=== PATIENT | female | born 1955 | race Hispanic/Latino ===

== ENCOUNTER 2017-12-03 22:26 | Emergency (ER) | payer OTHER ==
[2017-12-04 00:16] LABS: Urine Blood 3+ (NEG); Urine Glucose 2+ (NEG); Urine Protein TRACE (NEG); Urine pH 7.5 (5.0-7.0)
[2017-12-04 00:55] LABS: Urine Appearance CLEAR; Urine Bilirubin NEGATIVE (NEG); Urine Blood 3+ (NEG); Urine Glucose 3+ (NEG); Urine Protein 1+ (NEG); Urine Specific Gravity >=1.030 (1.005-1.030)
[2017-12-04 01:01] LABS: Urine Color RED
[2017-12-04 01:26] LABS: Urine Culture Reflex Order NOT NEEDED
[2017-12-04 01:27] LABS: Urine Bacteria 20-50 /HPF (<20); Urine RBC TNTC /HPF (NONE SEEN)
--- NOTE | 2017-12-04 01:48 | ER ---
Nurse's Notes [facility] Name: Sindi Corey Age: 62 yrs Sex: Female : 1955 Arrival Date: 12/03/2017 Time: 22:31 Bed 6 Private MD: Alex Sweeney Diagnosis: Urinary tract infection, site not specified Presentation: 12/03 22:44 Presenting complaint: Patient states: Patient reports bloody urine that started last ea week. Pt reports pain with urination and frequency. Transition of care: patient was not received from another setting of care. Onset of symptoms was December 03, 2017. Risk Assessment: Do you want to hurt yourself or someone else? Patient reports no desire to harm self or others. Initial Sepsis Screen: Does the patient meet any 2 criteria? No. Patient's initial sepsis screen is negative. Does the patient have a suspected source of infection? No. Patient's initial sepsis screen is negative. Care prior to arrival: None. 22:44 Method Of Arrival: Ambulatory ea 22:44 Acuity: ALONDRA 4 ea Triage Assessment: 22:48 General: Appears in no apparent distress. Behavior is calm, cooperative, appropriate ea for age. Pain: Complains of pain in suprapubic area. Neuro: Level of Consciousness is awake, alert, obeys commands, Oriented to person, place, time, situation. Cardiovascular: Patient's skin is warm and dry. Respiratory: Airway is patent Respiratory effort is even, unlabored, Respiratory pattern is regular, symmetrical. GI: Abdomen is non-distended, Bowel sounds present X 4 quads. : Reports burning with urination, urgency, since started a week ago urinary frequency. Derm: Skin is pink, warm \T\ dry. Musculoskeletal: No signs and/or symptoms reported regarding the musculoskeletal system. Circulation, motion, and sensation intact. Historical: - Allergies: 22:47 Hydrocodone-Acetaminophen; ea - Home Meds: 22:47 Humalog Pen Sub-Q [Active]; lisinopril-hydrochlorothiazide 20-12.5 mg Oral tab 1 tab ea once daily [Active]; metoprolol tartrate 25 mg Oral tab 1 tab once daily [Active]; omeprazole 40 mg Oral cpDR 1 cap once daily [Active]; Toujeo SoloStar 300 unit/mL (1.5 mL) subcutaneous inpn [Active]; - PMHx: 22:47 Cirrhosis; Diabetes - IDDM; Hypertension; ea - PSHx: 22:47 Cholecystectomy; ea - Immunization history:: Adult Immunizations up to date. - Social history:: Smoking status: Patient/guardian denies using tobacco. - Ebola Screening: : No symptoms or risks identified at this time. Screenin:51 Abuse screen: Denies threats or abuse. Nutritional screening: No deficits noted. ea Tuberculosis screening: No symptoms or risk factors identified. Fall Risk None identified. Assessment: 22:40 Reassessment: See triage assessment. ea 23:50 Reassessment: Patient and/or family updated on plan of care and expected duration. Pain ea level reassessed. Patient is alert, oriented x 3, equal unlabored respirations, skin warm/dry/pink. 12/04 00:40 Reassessment: Patient appears in no apparent distress at this time. Patient and/or tl2 family updated on plan of care and expected duration. Pain level reassessed. Patient is alert, oriented x 3, equal unlabored respirations, skin warm/dry/pink. Awaiting dispo per MD. 01:24 Reassessment: Awaiting urine micro results. tl2 02:00 Reassessment: Patient appears in no apparent distress at this time. Patient and/or tl2 family updated on plan of care and expected duration. Pain level reassessed. Patient is alert, oriented x 3, equal unlabored respirations, skin warm/dry/pink. Pt and family verbalized understanding of discharge instructions, need for follow up and prescription usage. Vital Signs: 12/03 22:47 BP 159 / 70; Pulse 83; Resp 16; Temp 98(O); Pulse Ox 97% on R/A; Weight 103.87 kg; ea Height 5 ft. 4 in. (162.56 cm); Pain /10; 23:48 BP 155 / 69; Pulse 76; Resp 18; Pulse Ox 97% on R/A; tl2 12/04 00:40 BP 133 / 69; Pulse 81; Resp 18; Pulse Ox 99% on R/A; tl2 01:23 BP 109 / 73; Pulse 76; Resp 18; Pulse Ox 97% on R/A; tl2 12/03 22:47 Body Mass Index 39.31 (103.87 kg, 162.56 cm) ea ED Course: 12/03 22:31 Patient arrived in ED. am2 22:31 Alex Sweeney MD is Private Physician. am2 22:35 Marion Quiles, RN is Primary Nurse. ea 22:45 Triage completed. ea 22:50 Arm band placed on right wrist. Patient placed in an exam room, on a stretcher, on ea pulse oximetry. 22:52 Patient has correct armband on for positive identification. Bed in low position. Call ea light in reach. Side rails up X 1. 22:59 William Figueroa MD is Attending Physician. tw4 12/04 02:00 No provider procedures requiring assistance completed. Patient did not have IV access tl2 during this emergency room visit. Administered Medications: 02:03 Drug: Macrobid 100 mg Route: PO; tl2 02:03 Follow up: Response: No adverse reaction; Medication administered at discharge. tl2 Outcome: 01:47 Discharge ordered by . tw4 02:00 Discharged to home ambulatory, with family. tl2 02:00 Condition: stable 02:00 Discharge instructions given to patient, family, Instructed on discharge instructions, follow up and referral plans. medication usage, Demonstrated understanding of instructions, follow-up care, medications, Prescriptions given X 2. 02:03 Patient left the ED. tl2 Addendum: 12/07/2017 07:48 Addendum: Culture Results: Positive urine culture. No further action required. Bacteria a a5 sensitive to prescribed antibiotic. Signatures: Clarissa Foster RN RN aa5 Temitope Kwan RN RN tl2 Jazzy Xiong am2 Marion Quiles, William Trotter RN, ea, MD MD tw4
--- NOTE | 2017-12-04 01:48 | EDPHYS ---
Physician Documentation [facility] Name: Sindi Corey Age: 62 yrs Sex: Female : 1955 Arrival Date: 12/03/2017 Time: 22:31 Bed 6 Private MD: Alex Sweeney ED Physician William Figueroa HPI: 12/04 03:25 This 62 yrs old Female presents to ER via Ambulatory with complaints of tw4 Vaginal Bleeding. 03:25 The patient presents with urinary symptoms, hematuria. Onset: The symptoms/episode tw4 began/occurred yesterday. Modifying factors: The symptoms are alleviated by nothing, the symptoms are aggravated by nothing. Associated signs and symptoms: The patient has no apparent associated signs or symptoms. Severity of symptoms: At their worst the symptoms were moderate, in the emergency department the symptoms are unchanged. The patient has not recently seen a physician. Historical: - Allergies: 12/03 22:47 Hydrocodone-Acetaminophen; ea - Home Meds: 22:47 Humalog Pen Sub-Q [Active]; lisinopril-hydrochlorothiazide 20-12.5 mg Oral tab 1 tab ea once daily [Active]; metoprolol tartrate 25 mg Oral tab 1 tab once daily [Active]; omeprazole 40 mg Oral cpDR 1 cap once daily [Active]; Toujeo SoloStar 300 unit/mL (1.5 mL) subcutaneous inpn [Active]; - PMHx: 22:47 Cirrhosis; Diabetes - IDDM; Hypertension; ea - PSHx: 22:47 Cholecystectomy; ea - Immunization history:: Adult Immunizations up to date. - Social history:: Smoking status: Patient/guardian denies using tobacco. - Ebola Screening: : No symptoms or risks identified at this time. ROS: 12/04 03:25 Positive for burning with urination. tw4 Constitutional: Negative for fever, chills, and weight loss, Eyes: Negative for injury, pain, redness, and discharge, Cardiovascular: Negative for chest pain, palpitations, and edema, Respiratory: Negative for shortness of breath, cough, wheezing, and pleuritic chest pain, Abdomen/GI: Negative for abdominal pain, nausea, vomiting, diarrhea, and constipation, MS/Extremity: Negative for injury and deformity, Skin: Negative for injury, rash, and discoloration. Exam: 03:25 Constitutional: This is a well developed, well nourished patient who is awake, alert, tw4 and in no acute distress. Head/Face: Normocephalic, atraumatic. Chest/axilla: Normal chest wall appearance and motion. Nontender with no deformity. No lesions are appreciated. Cardiovascular: Regular rate and rhythm with a normal S1 and S2. No gallops, murmurs, or rubs. Normal PMI, no JVD. No pulse deficits. Respiratory: Lungs have equal breath sounds bilaterally, clear to auscultation and percussion. No rales, rhonchi or wheezes noted. No increased work of breathing, no retractions or nasal flaring. Abdomen/GI: Soft, non-tender, with normal bowel sounds. No distension or tympany. No guarding or rebound. No evidence of tenderness throughout. Back: No spinal tenderness. No costovertebral tenderness. Full range of motion. MS/ Extremity: Pulses equal, no cyanosis. Neurovascular intact. Full, normal range of motion. Neuro: Awake and alert, GCS 15, oriented to person, place, time, and situation. Cranial nerves II-XII grossly intact. Motor strength 5/5 in all extremities. Sensory grossly intact. Cerebellar exam normal. Normal gait. Vital Signs: 12/03 22:47 BP 159 / 70; Pulse 83; Resp 16; Temp 98(O); Pulse Ox 97% on R/A; Weight 103.87 kg; ea Height 5 ft. 4 in. (162.56 cm); Pain 5/10; 23:48 BP 155 / 69; Pulse 76; Resp 18; Pulse Ox 97% on R/A; tl2 12/04 00:40 BP 133 / 69; Pulse 81; Resp 18; Pulse Ox 99% on R/A; tl2 01:23 BP 109 / 73; Pulse 76; Resp 18; Pulse Ox 97% on R/A; tl2 12/03 22:47 Body Mass Index 39.31 (103.87 kg, 162.56 cm) ea MDM: 12/03 23:00 Patient medically screened. tw4 12/04 03:25 Data reviewed: vital signs, nurses notes. Counseling: I had a detailed discussion with tw4 the patient and/or guardian regarding: the historical points, exam findings, and any diagnostic results supporting the discharge/admit diagnosis. Special discussion: I discussed with the patient/guardian in detail that at this point there is no indication for admission to the hospital. It is understood, however, that if the symptoms persist or worsen the patient needs to return immediately for re-evaluation. 12/03 23:25 Order name: Urine Dipstick--Ancillary (enter results); Complete Time: 00:41 ms 12/04 00:42 Order name: Urine Culture tl2 12/04 00:52 Order name: Urinalysis W/Microscopic; Complete Time: 01:45 EDMS Administered Medications: 02:03 Drug: Macrobid 100 mg Route: PO; tl2 02:03 Follow up: Response: No adverse reaction; Medication administered at discharge. tl2 Disposition: 12/04/17 01:47 Discharged to Home. Impression: Urinary tract infection, site not specified. - Condition is Stable. - Discharge Instructions: Dysuria, Urinary Tract Infection, Adult. - Prescriptions for Pyridium 200 mg Oral Tablet - take 1 tablet by ORAL route every 8 hours for 3 days; 9 tablet. Macrobid 100 mg Oral Capsule - take 1 capsule by ORAL route every 12 hours for 10 days; 20 capsule. - Medication Reconciliation Form, Thank You Letter, Antibiotic Education, Prescription Opioid Use form. - Follow up: Private Physician; When: Upon discharge from the Emergency Department; Reason: If symptoms return, Further diagnostic work-up, Recheck today's complaints, Continuance of care. - Problem is new. - Symptoms have improved. Signatures: Dispatcher [facility] HospitalTemitope Cooper RN RN tl2 Marion Quiles RN RN ea Wadley, Terrence, MD MD tw4 Corrections: (The following items were deleted from the chart) 12/03 23:33 23:00 IV Saline Lock ordered. tw4 tl2 23:35 23:01 BASIC METABOLIC PANEL+C.LAB.BRZ ordered. EDMA EDMS 23:35 23:01 CBC+H.LAB.BRZ ordered. EDMA EDMS 23:35 23:01 Creatinine for Radiology+C.LAB.BRZ ordered. EDMA EDMS 23:35 23:01 HEPATIC FUNCTION+C.LAB.BRZ ordered. EDMA EDMS 23:35 23:01 LIPASE+C.LAB.BRZ ordered. EDMA EDMS 23:47 23:00 Labs collected and sent ordered. tw4 tl2 12/04 00:51 00:49 URINALYSIS+U.LAB.BRZ ordered. EDMS EDMS 00:52 00:43 UA MICROSCOPIC+U.LAB.BRZ ordered. EDMA EDMS 02:03 01:47 12/04/2017 01:47 Discharged to Home. Impression: Urinary tract infection, site tl2 not specified. Condition is Stable. Forms are Medication Reconciliation Form, Thank You Letter, Antibiotic Education, Prescription Opioid Use. Follow up: Private Physician; When: Upon discharge from the Emergency Department; Reason: If symptoms return, Further diagnostic work-up, Recheck today's complaints, Continuance of care. Problem is new. Symptoms have improved. tw4
[2017-12-04] MEDS ORDERED: NITROFURAN MACRO 100 MG CAP PO ONE (02:04)
[2017-12-04 02:31] VITALS: TEMP 98
[2017-12-04 02:34] VITALS: BP 109/73; O2SAT 97
== END 2017-12-04 02:03 | disposition home or self-care (01) ==
LOC: ER 22:26
DX: N39.0 Urinary tract infection, site not specified (principal); E11.9 Type 2 diabetes mellitus without complications; I10 Essential (primary) hypertension
CPT/HCPCS: 81001; 81003; 87077; 87086; 87088; 87186; 99283

== ENCOUNTER 2018-02-24 23:19 | Emergency (ER) | payer OTHER ==
--- OUTSIDE RECORDS SUMMARY | 2018-02-24 23:20 | XMS REPORT ---
:1955 [facility] Address [address] [place] [address] Dr. Fernandez [address] [place] [id number] Care Team Providers Name Role Phone Unavailable Unavailable Unavailable Problems This patient has no known problems. Allergies, Adverse Reactions, Alerts This patient has no known allergies or adverse reactions. Medications This patient has no known medications.
[2018-02-25] MEDS ORDERED: MEPERIDINE HCL 25 MG/0.5 ML ONE (00:09)
[2018-02-25] MEDS ORDERED: DEXAMETHASONE 10 MG/ML VIAL ONE (00:09)
[2018-02-25] MEDS ORDERED: PROMETHAZINE 25 MG/ML VIAL ONE (00:09)
--- NOTE | 2018-02-25 00:45 | ER ---
Nurse's Notes [facility] Name: Sindi Corey Age: 63 yrs Sex: Female : 1955 Arrival Date: 02/24/2018 Time: 23:28 Bed 24 Private MD: Diagnosis: Radiculopathy, lumbar region Presentation: 02/24 23:29 Presenting complaint: EMS states: pt has been c/o right hip pain that radiates down the tl3 front of her leg, when getting into bed tonight she threw her leg up on the bed and the pain became unbearable. Transition of care: patient was not received from another setting of care. Onset of symptoms was February 24, 2018. Risk Assessment: Do you want to hurt yourself or someone else? Patient reports no desire to harm self or others. Initial Sepsis Screen: Does the patient meet any 2 criteria? No. Patient's initial sepsis screen is negative. Does the patient have a suspected source of infection? No. Patient's initial sepsis screen is negative. Care prior to arrival: None. 23:29 Method Of Arrival: EMS: [facility] tl3 23:29 Acuity: ALONDRA 3 tl3 Triage Assessment: 23:34 General: Appears distressed, uncomfortable, obese, well groomed, well developed, well tl3 nourished, Behavior is cooperative, appropriate for age, anxious. Pain: Complains of pain in back. EENT: No signs and/or symptoms were reported regarding the EENT system. Neuro: Level of Consciousness is awake, alert, obeys commands, Oriented to person, place, time, situation, Appropriate for age. Cardiovascular: Patient's skin is warm and dry. Respiratory: Airway is patent Respiratory effort is even, unlabored, Respiratory pattern is regular, symmetrical. GI: No signs and/or symptoms were reported involving the gastrointestinal system. : No signs and/or symptoms were reported regarding the genitourinary system. Derm: No signs and/or symptoms reported regarding the dermatologic system. Musculoskeletal: No signs and/or symptoms reported regarding the musculoskeletal system. Historical: - Allergies: 23:34 Hydrocodone-Acetaminophen; tl3 - Home Meds: 23:34 Humalog Pen Sub-Q [Active]; lisinopril-hydrochlorothiazide 20-12.5 mg Oral tab 1 tab tl3 once daily [Active]; omeprazole 40 mg Oral cpDR 1 cap once daily [Active]; metoprolol tartrate 25 mg Oral tab 1 tab once daily [Active]; Toujeo SoloStar 300 unit/mL (1.5 mL) subcutaneous inpn [Active]; - PMHx: 23:34 Cirrhosis; Diabetes - IDDM; Hypertension; tl3 - PSHx: 23:34 Cholecystectomy; tl3 - Immunization history:: Adult Immunizations up to date. - Social history:: Smoking status: unknown. - Ebola Screening: : No symptoms or risks identified at this time. Screenin:36 Abuse screen: Denies threats or abuse. Nutritional screening: No deficits noted. tl3 Tuberculosis screening: No symptoms or risk factors identified. Fall Risk None identified. Assessment: 23:36 Reassessment: No changes from previously documented assessment. tl3 02/25 01:01 Reassessment: Patient appears in no apparent distress at this time. No changes from tl3 previously documented assessment. Patient and/or family updated on plan of care and expected duration. Pain level reassessed. Patient is alert, oriented x 3, equal unlabored respirations, skin warm/dry/pink. Vital Signs: 02/24 23:34 BP 164 / 43; Pulse 76; Resp 16; Temp 98.2; Pulse Ox 99% on R/A; tl3 02/25 01:01 BP 158 / 52; Pulse 72; Resp 18; Pulse Ox 98% on R/A; tl3 ED Course: 02/24 23:28 Patient arrived in ED. tl3 23:32 Triage completed. tl3 23:34 Arm band placed on right wrist. tl3 23:36 Viraj Louie PA is PHCP. jr8 23:36 Jewel Hickey MD is Attending Physician. jr8 23:36 Patient has correct armband on for positive identification. Bed in low position. Call tl3 light in reach. Side rails up X 1. Pulse ox on. NIBP on. Warm blanket given. 23:50 Nyla Burgos, RN is Primary Nurse. tl3 02/25 01:01 No provider procedures requiring assistance completed. Patient did not have IV access tl3 during this emergency room visit. Administered Medications: 00:06 Drug: Decadron - Dexamethasone 10 mg {Note: Given IM right deltoid.} Route: IVP; Site: tl3 right upper arm; 00:57 Follow up: Response: Pain is decreased tl3 00:07 Drug: Promethazine 12.5 mg {Note: given IM left deltoid.} Route: IVP; Site: left upper tl3 arm; 00:58 Follow up: Response: Marked relief of symptoms tl3 00:08 Drug: Demerol 25 mg {Note: given IM to left deltoid.} Route: IVP; Site: left upper arm; tl3 00:58 Follow up: Response: No adverse reaction; Pain is decreased tl3 Outcome: 00:45 Discharge ordered by . gisell 01:01 Discharged to home via wheelchair. tl3 01:01 Condition: improved 01:01 Discharge instructions given to patient, family, Instructed on discharge instructions, follow up and referral plans. medication usage, Demonstrated understanding of instructions, follow-up care, medications, Prescriptions given X 3. 01:03 Patient left the ED. tl3 Signatures: Viraj Louie PA PA jr8 Nyla Burgos RN RN tl3 Geronimo Kumar RN RN mg2 Corrections: (The following items were deleted from the chart) 00:18 00:06 Decadron - Dexamethasone 10 mg IVP in left upper arm tl3 tl3 00:18 00:07 Promethazine 12.5 mg IVP in left upper arm tl3 tl3 00:19 00:08 Demerol 25 mg IVP in left upper arm tl3 tl3
--- NOTE | 2018-02-25 00:46 | EDPHYS ---
Physician Documentation [facility] Name: Sindi Corey Age: 63 yrs Sex: Female : 1955 Arrival Date: 02/24/2018 Time: 23:28 Bed 24 Private MD: ED Physician Jewel Hickey HPI: 02/25 00:02 This 63 yrs old Female presents to ER via EMS with complaints of Hip Pain/back jr8 pain. 00:03 The patient presents with pain that is acute, with no known mechanism of injury. The jr8 symptoms are located in the low back. Onset: The symptoms/episode began/occurred acutely, today. The pain radiates to the right leg. Associated signs and symptoms: The patient has no apparent associated signs or symptoms. The problem was sustained from unknown cause. Modifying factors: The patient symptoms are alleviated by nothing, the patient symptoms are aggravated by any movement. Severity of symptoms: At their worst the symptoms were moderate, in the emergency department the symptoms are unchanged. The patient has not experienced similar symptoms in the past. The patient has not recently seen a physician. Stated that she was getting into bed when she had sharp pain to low back and down right leg. Stated that it had been aggravating her for the past few days but became acutely worse tonight . Historical: - Allergies: 02/24 23:34 Hydrocodone-Acetaminophen; tl3 - Home Meds: 23:34 Humalog Pen Sub-Q [Active]; lisinopril-hydrochlorothiazide 20-12.5 mg Oral tab 1 tab tl3 once daily [Active]; omeprazole 40 mg Oral cpDR 1 cap once daily [Active]; metoprolol tartrate 25 mg Oral tab 1 tab once daily [Active]; Toujeo SoloStar 300 unit/mL (1.5 mL) subcutaneous inpn [Active]; - PMHx: 23:34 Cirrhosis; Diabetes - IDDM; Hypertension; tl3 - PSHx: 23:34 Cholecystectomy; tl3 - Immunization history:: Adult Immunizations up to date. - Social history:: Smoking status: unknown. - Ebola Screening: : No symptoms or risks identified at this time. ROS: 02/25 00:03 Eyes: Negative for injury, pain, redness, and discharge, ENT: Negative for injury, jr8 pain, and discharge, Neck: Negative for injury, pain, and swelling, Cardiovascular: Negative for chest pain, palpitations, and edema, Respiratory: Negative for shortness of breath, cough, wheezing, and pleuritic chest pain, Abdomen/GI: Negative for abdominal pain, nausea, vomiting, diarrhea, and constipation, MS/Extremity: Negative for injury and deformity, Skin: Negative for injury, rash, and discoloration, Neuro: Negative for headache, weakness, numbness, tingling, and seizure. Back: Positive for pain at rest, pain with movement, radiated pain, of the low back area. Exam: 00:03 Eyes: Pupils equal round and reactive to light, extra-ocular motions intact. Lids and jr8 lashes normal. Conjunctiva and sclera are non-icteric and not injected. Cornea within normal limits. Periorbital areas with no swelling, redness, or edema. ENT: Nares patent. No nasal discharge, no septal abnormalities noted. Tympanic membranes are normal and external auditory canals are clear. Oropharynx with no redness, swelling, or masses, exudates, or evidence of obstruction, uvula midline. Mucous membranes moist. Neck: Trachea midline, no thyromegaly or masses palpated, and no cervical lymphadenopathy. Supple, full range of motion without nuchal rigidity, or vertebral point tenderness. No Meningismus. Cardiovascular: Regular rate and rhythm with a normal S1 and S2. No gallops, murmurs, or rubs. Normal PMI, no JVD. No pulse deficits. Respiratory: Lungs have equal breath sounds bilaterally, clear to auscultation and percussion. No rales, rhonchi or wheezes noted. No increased work of breathing, no retractions or nasal flaring. Abdomen/GI: Soft, non-tender, with normal bowel sounds. No distension or tympany. No guarding or rebound. No evidence of tenderness throughout. Skin: Warm, dry with normal turgor. Normal color with no rashes, no lesions, and no evidence of cellulitis. MS/ Extremity: Pulses equal, no cyanosis. Neurovascular intact. Full, normal range of motion. Neuro: Awake and alert, GCS 15, oriented to person, place, time, and situation. Cranial nerves II-XII grossly intact. Motor strength 5/5 in all extremities. Sensory grossly intact. Cerebellar exam normal. Normal gait. 00:03 Back: pain, that is moderate, of the lumbar area and right low back, ROM is painful, normal spinal alignment noted, CVA tenderness, is absent, muscle spasm, is appreciated in the left low back and right low back, Straight leg raises: right lower extremity illicits pain, at 30 degrees. Vital Signs: 02/24 23:34 BP 164 / 43; Pulse 76; Resp 16; Temp 98.2; Pulse Ox 99% on R/A; tl3 02/25 01:01 BP 158 / 52; Pulse 72; Resp 18; Pulse Ox 98% on R/A; tl3 MDM: 02/24 23:36 Patient medically screened. jr8 02/25 00:44 Data reviewed: vital signs, nurses notes, and as a result, I will discharge patient. jr8 Data interpreted: Pulse oximetry: on room air is 99 %. Interpretation: normal. Counseling: I had a detailed discussion with the patient and/or guardian regarding: the historical points, exam findings, and any diagnostic results supporting the discharge/admit diagnosis, the need for outpatient follow up, a family practitioner, to return to the emergency department if symptoms worsen or persist or if there are any questions or concerns that arise at home. Response to treatment: the patient's symptoms have markedly improved after treatment. ED course: Patient able to ambulate to bathroom. Feeling much better. Will send home on medication . Administered Medications: 00:06 Drug: Decadron - Dexamethasone 10 mg {Note: Given IM right deltoid.} Route: IVP; Site: tl3 right upper arm; 00:57 Follow up: Response: Pain is decreased tl3 00:07 Drug: Promethazine 12.5 mg {Note: given IM left deltoid.} Route: IVP; Site: left upper tl3 arm; 00:58 Follow up: Response: Marked relief of symptoms tl3 00:08 Drug: Demerol 25 mg {Note: given IM to left deltoid.} Route: IVP; Site: left upper arm; tl3 00:58 Follow up: Response: No adverse reaction; Pain is decreased tl3 Disposition: 03:30 Co-signature as Attending Physician, Jewel Hickey MD Available for consultation at ps1 all times. Disposition: 02/25/18 00:45 Discharged to Home. Impression: Radiculopathy, lumbar region. - Condition is Stable. - Discharge Instructions: Lumbosacral Radiculopathy, Back Exercises. - Prescriptions for Tramadol 50 mg Oral Tablet - take 1 tablet by ORAL route every 8 hours as needed; 20 tablet. Robaxin 500 mg Oral Tablet - take 2 tablet by ORAL route every 6 hours As needed; 40 tablet. - Medication Reconciliation Form, Thank You Letter, Antibiotic Education, Prescription Opioid Use form. - Follow up: Private Physician; When: 2 - 3 days; Reason: Recheck today's complaints, Continuance of care, Re-evaluation by your physician. - Problem is new. - Symptoms have improved. Signatures: Viraj Louie PA PA jr8 Jewel Hickey MD MD ps1 Nyla Burgos RN RN tl3 Corrections: (The following items were deleted from the chart) 01:03 00:45 02/25/2018 00:45 Discharged to Home. Impression: Radiculopathy, lumbar region. tl3 Condition is Stable. Forms are Medication Reconciliation Form, Thank You Letter, Antibiotic Education, Prescription Opioid Use. Follow up: Private Physician; When: 2 - 3 days; Reason: Recheck today's complaints, Continuance of care, Re-evaluation by your physician. Problem is new. Symptoms have improved. jr8
[2018-02-25 01:55] VITALS: TEMP 98.2
[2018-02-25 01:56] VITALS: BP 158/52; O2SAT 98
== END 2018-02-25 01:03 | disposition home or self-care (01) ==
LOC: ER 23:19
DX: M54.16 Radiculopathy, lumbar region (principal); I10 Essential (primary) hypertension; E11.9 Type 2 diabetes mellitus without complications; Z79.4 Long term (current) use of insulin; Z88.5 Allergy status to narcotic agent
CPT/HCPCS: J1100; J2175; J2550

== ENCOUNTER 2018-03-31 14:06 | Emergency (ER) | payer OTHER ==
--- OUTSIDE RECORDS SUMMARY | 2018-03-31 14:08 | XMS REPORT ---
:1955 Author Organization [facility] Address [address] [place] [address] Care Team Providers Name Role Phone Unavailable Unavailable Unavailable Problems This patient has no known problems. Allergies, Adverse Reactions, Alerts This patient has no known allergies or adverse reactions. Medications This patient has no known medications.
[2018-03-31] MEDS ORDERED: FENTANYL CITR 100 MCG/2 ML ONE (16:09)
--- NOTE | 2018-03-31 16:55 | RAD REPORT ---
EXAM DESCRIPTION: RAD - Knee Left 3 View - 03/31/2018 4:49 pm CLINICAL HISTORY: PAIN Fall, pain COMPARISON: No comparisons FINDINGS: Tricompartmental osteoarthritic changes are present, greatest the medial compartment and a nd patellofemoral compartment. An oblique fracture seen through the fibular neck. IMPRESSION: Oblique nondisplaced fracture of the fibular neck.
--- NOTE | 2018-03-31 16:55 | RAD REPORT ---
EXAM DESCRIPTION: RAD - Lumbar Spine 3 Views - 03/31/2018 4:49 pm CLINICAL HISTORY: LOWER BACK PAIN Radiculopathy COMPARISON: No comparisons FINDINGS: Vertebral body heights appear maintained. No compression fracture noted. Moderate degenera tive changes at L3-4, L4-5 and L5-S1 with endplate osteophytes and vacuum disc degeneration noted. No spondylolysis or spondylolisthesis. IMPRESSION: No acute abnormality discerned. Moderate lower lumbar spondylosis.
--- NOTE | 2018-03-31 16:56 | RAD REPORT ---
EXAM DESCRIPTION: RAD - Foot Left 2 View - 03/31/2018 4:49 pm CLINICAL HISTORY: PAIN History of fall COMPARISON: FOOT W OBLIQUES dated 07/12/2010 FINDINGS: No acute fracture is seen. Large posterior and plantar calcaneal spurs.
--- NOTE | 2018-03-31 16:57 | RAD REPORT ---
EXAM DESCRIPTION: RAD - Knee Right 3 View - 03/31/2018 4:46 pm CLINICAL HISTORY: PAIN Fall, pain COMPARISON: Knee Right 3 View dated 01/05/2016 FINDINGS: Osteoarthritic changes are present in the medial joint compartment space as well as the pa tellofemoral joint. Soft tissue swelling is seen anterior to the patella tendon. No acute fracture or dislocation.
--- NOTE | 2018-03-31 17:04 | ER ---
Nurse's Notes [facility] Name: Sindi Corey Age: 63 yrs Sex: Female : 1955 Arrival Date: 03/31/2018 Time: 14:08 Bed 28 Private MD: Alex Sweeney Diagnosis: Nondisplaced spiral fracture of shaft of left fibula-Neck;Fall (on)(from) sidewalk curb;Low back pain Presentation: 03/31 14:11 Presenting complaint: Patient states: Fall from standing position, fell onto sg outstretched hands and knees, pt now complaining bilateral knee pain, pt was ambulatory after incident, just reports increased pain with walking at this time, no head trauma, no complaints of other pain at this time, no LOC reports. Care prior to arrival: None. Mechanism of Injury: Fall from standing position. Trauma event details: Injury occurred in the [facility]. 14:11 Acuity: ALONDRA 4 sg 14:11 Method Of Arrival: Ambulatory sg 15:18 Transition of care: patient was not received from another setting of care. Onset of rv symptoms was March 31, 2018 at 14:30. Risk Assessment: Do you want to hurt yourself or someone else? Patient reports no desire to harm self or others. Initial Sepsis Screen: Does the patient meet any 2 criteria? No. Patient's initial sepsis screen is negative. Does the patient have a suspected source of infection? No. Patient's initial sepsis screen is negative. Triage Assessment: 14:14 General: Appears in no apparent distress. comfortable, well groomed, well developed, sg well nourished, Behavior is calm, cooperative, appropriate for age. Pain: Complains of pain in right knee and left knee. Respiratory: Airway is patent Respiratory effort is even, unlabored, Respiratory pattern is regular, symmetrical. Derm: Skin is pink, warm \T\ dry. Musculoskeletal: Circulation, motion, and sensation intact. Range of motion: intact in all extremities, Swelling absent. Trauma Activation: Not Applicable Physician: ED Physician; Name: ; Notified At: ; Arrived At: Physician: General Surgeon; Name: ; Notified At: ; Arrived At: Physician: Radiology; Name: ; Notified At: ; Arrived At: Physician: Respiratory; Name: ; Notified At: ; Arrived At: Physician: Lab; Name: ; Notified At: ; Arrived At: Historical: - Allergies: 14:13 Hydrocodone-Acetaminophen; sg - PMHx: 14:13 Cirrhosis; Diabetes - IDDM; Hypertension; sg - PSHx: 14:13 Cholecystectomy; sg - Immunization history: Last tetanus immunization: unknown. - Social history:: Smoking status: unknown. - Ebola Screening: : Patient negative for fever greater than or equal to 101.5 degrees Fahrenheit, and additional compatible Ebola Virus Disease symptoms Patient denies exposure to infectious person Patient denies travel to an Ebola-affected area in the 21 days before illness onset. Screenin:17 Abuse screen: Denies threats or abuse. Denies injuries from another. Nutritional rv screening: No deficits noted. Tuberculosis screening: No symptoms or risk factors identified. Fall Risk None identified. Primary Survey: 15:17 NO uncontrolled hemorrhage observed. Breathing/Chest: Respiratory pattern: regular. rv Circulation: Cardiac rhythm: sinus rhythm. Disability Alert. 17:27 Reassessment Airway Airway Patent Breathing/Chest Respiratory pattern Regular. rv Assessment: 15:16 General: Appears in no apparent distress. comfortable, Behavior is calm, cooperative. rv Pain: Complains of pain in left leg and right knee. Neuro: Level of Consciousness is awake, alert, obeys commands, Oriented to person, place, time, situation. Cardiovascular: Capillary refill < 3 seconds. Respiratory: Airway is patent. GI: No signs and/or symptoms were reported involving the gastrointestinal system. : No signs and/or symptoms were reported regarding the genitourinary system. EENT: No signs and/or symptoms were reported regarding the EENT system. Derm: Wound noted right knee. Musculoskeletal: Reports pain in left leg and right knee. Vital Signs: 14:11 BP 155 / 52; Pulse 88; Resp 17; Pulse Ox 98% on R/A; Pain 7/10; sg 16:00 BP 127 / 63; Pulse 74; Resp 15 S; Pulse Ox 98% on R/A; rv 17:00 BP 133 / 74; Pulse 82; Resp 18 S; Pulse Ox 97% on R/A; rv Lori Coma Score: 14:11 Eye Response: spontaneous(4). Verbal Response: oriented(5). Motor Response: obeys sg commands(6). Total: 15. Trauma Score (Adult): 14:11 Eye Response: spontaneous(1); Verbal Response: oriented(1); Motor Response: obeys sg commands(2); Systolic BP: > 89 mm Hg(4); Respiratory Rate: 10 to 29 per min(4); [place] Score: 15; Trauma Score: 12 ED Course: 14:08 Patient arrived in ED. mr 14:08 Alex Sweeney MD is Private Physician. mr 14:13 Triage completed. sg 14:14 Arm band placed on. sg 15:11 Shauna Whitley FNP-C [facility]. snw 15:11 Andrew Clayton MD is Attending Physician. snw 15:17 Patient has correct armband on for positive identification. Bed in low position. Call rv light in reach. Side rails up X2. Adult w/ patient. Pulse ox on. NIBP on. 15:18 Patient maintains SpO2 saturation greater than 95% on room air. rv 15:19 Thermoregulation: warm blanket given to patient. rv 16:46 Lumbar Spine (3 Views) XRAY In Process Unspecified. EDMS 16:46 Knee Left 3 View XRAY In Process Unspecified. EDMS 16:46 Knee Right 3 View XRAY In Process Unspecified. EDMS 16:46 Foot Left 2 View XRAY In Process Unspecified. EDMS 17:03 Alex Sweeney MD is Referral Physician. snw 17:27 No provider procedures requiring assistance completed. Patient did not have IV access rv during this emergency room visit. Administered Medications: 15:45 Drug: fentaNYL (PF) 25 mcg Route: IM; Site: left deltoid; rv 17:00 Follow up: Response: Pain is decreased rv Outcome: 17:04 Discharge ordered by . snw 17:28 Discharged to home via wheelchair, knee immobilizer rv 17:28 Condition: good 17:28 Discharge instructions given to patient, family, Instructed on discharge instructions, follow up and referral plans. medication usage, Demonstrated understanding of instructions, follow-up care, medications, Prescriptions given X 2. 17:28 Patient left the ED. rv Signatures: Dispatcher [employer] Charlie Fontana, Shauna Macario RN, FNP-C FNP-Daija Jackie Torres mr Oskar Glynn RN RN rv
--- NOTE | 2018-03-31 17:04 | EDPHYS ---
Physician Documentation [facility] Name: Sindi Corey Age: 63 yrs Sex: Female : 1955 Arrival Date: 03/31/2018 Time: 14:08 Bed 28 Private MD: Alex Sweeney ED Physician Andrew Clayton HPI: 03/31 15:57 This 63 yrs old Female presents to ER via Ambulatory with complaints of Fall snw Injury. 15:57 Details of fall: The patient fell from an upright position. Onset: The symptoms/episode snw began/occurred suddenly, today. Associated injuries: The patient sustained bilateral knee pain, left great toe pain. Severity of symptoms: At their worst the symptoms were mild. It is unknown whether or not the patient has had similar symptoms in the past. The patient has not recently seen a physician, sees Dr. Seweney. Historical: - Allergies: 14:13 Hydrocodone-Acetaminophen; sg - PMHx: 14:13 Cirrhosis; Diabetes - IDDM; Hypertension; sg - PSHx: 14:13 Cholecystectomy; sg - Immunization history: Last tetanus immunization: unknown. - Social history:: Smoking status: unknown. - Ebola Screening: : Patient negative for fever greater than or equal to 101.5 degrees Fahrenheit, and additional compatible Ebola Virus Disease symptoms Patient denies exposure to infectious person Patient denies travel to an Ebola-affected area in the 21 days before illness onset. ROS: 15:55 Constitutional: Negative for fever, chills, and weight loss, Eyes: Negative for injury, snw pain, redness, and discharge, ENT: Negative for injury, pain, and discharge, Neck: Negative for injury, pain, and swelling, Cardiovascular: Negative for chest pain, palpitations, and edema, Respiratory: Negative for shortness of breath, cough, wheezing, and pleuritic chest pain, Abdomen/GI: Negative for abdominal pain, nausea, vomiting, diarrhea, and constipation, Back: Positive for injury and pain to lower left back, upper hip : Negative for injury, bleeding, discharge, and swelling, Skin: Negative for injury, rash, and discoloration, Neuro: Negative for headache, weakness, numbness, tingling, and seizure. 15:55 MS/extremity: Positive for injury or acute deformity, abrasion, tenderness, of the right knee and left knee, c/o left great toe pain. Exam: 15:55 Constitutional: This is a well developed, well nourished patient who is awake, alert, snw and in no acute distress. Head/Face: Normocephalic, atraumatic. Eyes: Pupils equal round and reactive to light, extra-ocular motions intact. Lids and lashes normal. Conjunctiva and sclera are non-icteric and not injected. Cornea within normal limits. Periorbital areas with no swelling, redness, or edema. ENT: Nares patent. No nasal discharge, no septal abnormalities noted. Tympanic membranes are normal and external auditory canals are clear. Oropharynx with no redness, swelling, or masses, exudates, or evidence of obstruction, uvula midline. Mucous membranes moist. Neck: Trachea midline, no thyromegaly or masses palpated, and no cervical lymphadenopathy. Supple, full range of motion without nuchal rigidity, or vertebral point tenderness. No Meningismus. Chest/axilla: Normal chest wall appearance and motion. Nontender with no deformity. No lesions are appreciated. Cardiovascular: Regular rate and rhythm with a normal S1 and S2. No gallops, murmurs, or rubs. Normal PMI, no JVD. No pulse deficits. Respiratory: Lungs have equal breath sounds bilaterally, clear to auscultation and percussion. No rales, rhonchi or wheezes noted. No increased work of breathing, no retractions or nasal flaring. Abdomen/GI: Soft, non-tender, with normal bowel sounds. No distension or tympany. No guarding or rebound. No evidence of tenderness throughout. Back: No spinal tenderness. No costovertebral tenderness. Full range of motion. Neuro: Awake and alert, GCS 15, oriented to person, place, time, and situation. Cranial nerves II-XII grossly intact. Motor strength 5/5 in all extremities. Sensory grossly intact. Cerebellar exam normal. Normal gait. Psych: Awake, alert, with orientation to person, place and time. Behavior, mood, and affect are within normal limits. 15:55 Skin: Appearance: normal except for affected area, injury, abrasion(s), very small abrasion noted, of the right knee and left knee. Vital Signs: 14:11 BP 155 / 52; Pulse 88; Resp 17; Pulse Ox 98% on R/A; Pain 7/10; sg 16:00 BP 127 / 63; Pulse 74; Resp 15 S; Pulse Ox 98% on R/A; rv 17:00 BP 133 / 74; Pulse 82; Resp 18 S; Pulse Ox 97% on R/A; rv Lori Coma Score: 14:11 Eye Response: spontaneous(4). Verbal Response: oriented(5). Motor Response: obeys sg commands(6). Total: 15. Trauma Score (Adult): 14:11 Eye Response: spontaneous(1); Verbal Response: oriented(1); Motor Response: obeys sg commands(2); Systolic BP: > 89 mm Hg(4); Respiratory Rate: 10 to 29 per min(4); [place] Score: 15; Trauma Score: 12 MDM: 15:11 Patient medically screened. snw 17:06 Data reviewed: vital signs, nurses notes. Data interpreted: Pulse oximetry: on room air snw is 97 %. Interpretation: normal. Counseling: I had a detailed discussion with the patient and/or guardian regarding: the historical points, exam findings, and any diagnostic results supporting the discharge/admit diagnosis, radiology results, the need for outpatient follow up, to return to the emergency department if symptoms worsen or persist or if there are any questions or concerns that arise at home. Special discussion: I have referred the patient to see his PCP for further evaluation of high blood pressure. Based on the history and exam findings, there is no indication for further emergent testing or inpatient evaluation. I discussed with the patient/guardian the need to see the orthopedic surgeon for further evaluation of the symptoms. I discussed with the patient/guardian the need to see the primary care provider for further evaluation of the symptoms. 03/31 15:55 Order name: Lumbar Spine (3 Views) XRAY; Complete Time: 16:56 snw 03/31 15:55 Order name: Knee Left 3 View XRAY; Complete Time: 16:56 snw 03/31 15:55 Order name: Knee Right 3 View XRAY; Complete Time: 17:02 snw 03/31 15:55 Order name: Foot Left 2 View XRAY; Complete Time: 17:02 snw 03/31 17:03 Order name: Knee Immobilizer: left; Complete Time: 17:14 snw Administered Medications: 15:45 Drug: fentaNYL (PF) 25 mcg Route: IM; Site: left deltoid; rv 17:00 Follow up: Response: Pain is decreased rv Disposition: 03/31/18 17:04 Discharged to Home. Impression: Nondisplaced spiral fracture of shaft of left fibula - Neck, Fall (on)(from) sidewalk curb, Low back pain. - Condition is Stable. - Discharge Instructions: Back Pain, Adult, Undisplaced Fibular Ankle Fracture Treated With Immobilization, Adult, Knee Immobilizer, Musculoskeletal Pain, Cryotherapy, Rehydration, Adult, Heat Therapy. - Prescriptions for Tylenol- Codeine #3 300-30 mg Oral Tablet - take 1 tablet by ORAL route every 6 hours As needed; 6 tablet. orphenadrine citrate 100 mg Oral Tablet Sustained Release - take 1 tablet by ORAL route 2 times per day As needed; 20 tablet. - Medication Reconciliation Form, Thank You Letter, Antibiotic Education, Prescription Opioid Use form. - Follow up: Alex Sweeney MD; When: 2 - 3 days; Reason: Recheck today's complaints, Continuance of care, Re-evaluation by your physician. Addendum: 04/02/2018 07:43 Co-signature as Attending Physician, Andrew Clayton MD I agree with the assessment and c martins plan of care. Signatures: Dispatcher [employer] EDCharlie Wilkerson, RN RN Andrew Tyler MD MD cha Therrien, Shelly, WIRE MACHINE OPERATOR-C WIRE MACHINE OPERATOR-Csnw Oskar Glynn RN RN rv Corrections: (The following items were deleted from the chart) 03/31 17:28 17:04 03/31/2018 17:04 Discharged to Home. Impression: Nondisplaced spiral fracture of rv shaft of left fibula - Neck; Fall (on)(from) sidewalk curb; Low back pain. Condition is Stable. Forms are Medication Reconciliation Form, Thank You Letter, Antibiotic Education, Prescription Opioid Use. Follow up: Alex Sweeney; When: 2 - 3 days; Reason: Recheck today's complaints, Continuance of care, Re-evaluation by your physician. snw
[2018-03-31 18:17] VITALS: BP 133/74; O2SAT 97
== END 2018-03-31 17:28 | disposition home or self-care (01) ==
LOC: ER 14:06
DX: S82.435A Nondisplaced oblique fracture of shaft of left fibula, initial encounter for closed fracture (principal); W18.30XA Fall on same level, unspecified, initial encounter; Y92.480 Sidewalk as the place of occurrence of the external cause; M47.816 Spondylosis without myelopathy or radiculopathy, lumbar region; K74.60 Unspecified cirrhosis of liver; E11.9 Type 2 diabetes mellitus without complications; I10 Essential (primary) hypertension
CPT/HCPCS: 72100; 96372; 99284; J3010

== ENCOUNTER 2021-04-11 16:59 | Emergency (ER) | payer OTHER ==
--- OUTSIDE RECORDS SUMMARY | 2021-04-11 17:03 | XMS REPORT | Continuity of Care Document ---
:1955 Author Organization [facility] t Address [address] [place] [address] Care Team Providers Name Role Phone RAS JOVEL Primary Care Physician Unavailable NEGIN Attending Clinician Unavailable JOSE Attending Clinician Unavailable Negin FRANKS Attending Clinician Denzel MCGARRY-Matt Attending Clinician DENZEL Attending Clinician Unavailable JESSICA Attending Clinician Unavailable KARAN Attending Clinician Unavailable MADELYN SHELDON Attending Clinician Unavailable Doctor Unassigned, Name Attending Clinician Unavailable Heather FRANKS Attending Clinician Payers Payer Name Policy Type Policy Number Effective Date Expiration Date Paulo [facility] DUAL [id number] 2020 COMP HMO D SNP 00:00:00 [facility]ID [facility] [id number] 2019 00:00:00 Problems Condition Condition Condition Status Onset Resolution Last Treating Co mments Source Name Details Category Date Date Treatment Clinician Date Vaginal Vaginal Disease Active Univers atrophy atrophy 4-06 ity of 00:00: [place] [address] Medical Branch Obesity Obesity Disease Active Univers (BMI (BMI 7-05 ity of 30-39.9) 30-39.9) 00:00: [address] Branch Hypomagnes Hypomagnes Disease Active U nivers emia emia 5-19 ity of 00:00: [place] 00 Medical Branch Muscle Muscle Disease Active Univers cramping cramping 5-19 ity of 00:00: [place] [facility] Thrombocyt Thrombocyt Disease Active U sathya openia, openia, 5-15 ity of unspecifie [place]specifie [place] Dyslipidem Dyslipidem Disease Active U sathya ia ia 5-15 ity of 00:00: [place] [facility] Vitamin D Vitamin D Disease Active Uni vers deficiency deficiency 5-15 it y of 00:00: [place] 00 Medical Branch Diabetes Diabetes Disease Active Overview: Un caio mellitus mellitus 4-30 Formattin ity of type 2, type 2, 00:00: g of this [place] uncontroll uncontroll 00 note Me dical ed, ed, might be Branch without without different complicati complicati from the ons ons original. 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 [place] [facility] [place] Allergies, Adverse Reactions, Alerts Allergy Allergy Status Severity Reaction(s) Onset Inactive Treating Comm ents Source Name Type Date Date Clinician CODEINE DRUG Active Anxiety Univers INGREDI 4-30 ity of 00:00: [place] 00 Medical Branch Codeine Propensi Active Anxiety Univer s ty to 4-30 ity of adverse 00:00: [place] reaction 00 Medical s Branch Social History Social Habit Start Date Stop Date Quantity Comments Source Exposure to Not sure University SARS-CoV-2 [place] Medical (event) Branch Alcohol intake 2021-02-04 2021-02-04 Current University of 00:00:00 00:00:00 non-drinker of [facility] alcohol Branch (finding) Sex [birth year] Universit y of 00:00:00 00:00:00 [facility] Smoking Status Start Date Stop Date Source Never smoker [facility] Branch Medications Ordered Filled Start Stop Current Ordering Indication Dosage Frequency Signature Comments Components Source Medication Medication Date Date Medication? Clinician (SIG) Name Name OZEMPIC 1 Yes [id number] DIAL AND Univers mg/dose (4 2-16 INJECT ity of mg/3 mL) 00:00[place] PnIj 00 SKIN 1 MG Medical WEEKLY Branch empaglifloz Yes [id number] 1{tbl} Take 1 Univers in-metformi 2-01 tablet by ity of n (SYNJARDY 00:00: mouth 2 [place] as XR) 00 (two) Medical 12.5-1,000 times Branch mg TBph daily. empaglifloz Yes [id number] 1{tbl} Take 1 Univers in-metformi 2-01 tablet by ity of n (SYNJARDY 00:00: mouth 2 [place] as XR) 00 (two) Medical 12.5-1,000 times Branch mg TBph daily. methocarbam 2020-02- Yes [id number] 500mg Take 1 Univers oL 500 mg 2-30 01-30 tablet by ity of tablet 00:00: 05:59 mouth at [place] 00 :00 bedtime as Medical needed Branch (muscle spasms) for up to 30 days. semaglutide Yes [id number] 1mg inject 1 Univers (OZEMPIC) 1 8-24 mg under ity of mg/dose (4 00:00: the skin [place] as mg/3 mL) 00 weekly. [facility] Branch semaglutide Yes [id number] 1mg inject 1 Univers (OZEMPIC) 1 8-24 mg under ity of mg/dose (4 00:00: the skin [place] as mg/3 mL) 00 weekly. [facility] Branch semaglutide Yes [id number] 1mg inject 1 Univers (OZEMPIC) 1 8-24 mg under ity of mg/dose (4 00:00: the skin [place] as mg/3 mL) 00 weekly. [facility] Branch semaglutide Yes [id number] 1mg inject 1 Univers (OZEMPIC) 1 8-24 mg under ity of mg/dose (4 00:00: the skin [place] as mg/3 mL) 00 weekly. Medical PnIj Branch semaglutide 2021- No [id number] 1mg inject 1 Univers (OZEMPIC) 1 8-24 02-16 mg under ity of mg/dose (4 00:00[place] mg/3 mL) 00 :00 weekly. Medical PnIj Branch metoprolol Yes 25mg Take 1 Unive rs succinate 7-30 tablet by ity o f XL 25 mg 24 00:00: mouth [place] hr tablet 00 daily. Medical Keep next Branch follow up appointmen t for future refills. metoprolol Yes 25mg Take 1 Unive rs succinate 7-30 tablet by ity o f XL 25 mg 24 00:00: mouth [place] hr tablet 00 daily. Medical Keep next Branch follow up appointmen t for future refills. metoprolol Yes 25mg Take 1 Unive rs succinate 7-30 tablet by ity o f XL 25 mg 24 00:00: mouth [place] hr tablet 00 daily. Medical Keep next Branch follow up appointmen t for future refills. metoprolol Yes 25mg Take 1 Unive rs succinate 7-30 tablet by ity o f XL 25 mg 24 00:00: mouth [place] hr tablet 00 daily. Medical Keep next Branch follow up appointmen t for future refills. metoprolol Yes 25mg Take 1 Unive rs succinate 7-30 tablet by ity o f XL 25 mg 24 00:00: mouth [place] hr tablet 00 daily. Medical Keep next Branch follow up appointmen t for future refills. empaglifloz Yes [id number] 1{tbl} Take 1 Univers in-metformi 7-28 tablet by ity of n (SYNJARDY 00:00: mouth 2 [place] as XR) 00 (two) Medical 12.5-1,000 times Branch mg TBph daily. flash Yes [id number] 1{each} 1 Each Un caio glucose 7-28 every 2 ity of sensor 00:00: (two) [place] (FREESTYLE 00 weeks. Medical YOJANA 2 Branch SENSOR) Kit empaglifloz Yes [id number] 1{tbl} Take 1 Univers in-metformi 7-28 tablet by ity of n (SYNJARDY 00:00: mouth 2 [place] as XR) 00 (two) Medical 12.5-1,000 times Branch mg TBph daily. flash Yes [id number] 1{each} 1 Each Un caio glucose 7-28 every 2 ity of sensor 00:00: (two) [place] (FREESTYLE 00 weeks. Medical YOJANA 2 Branch SENSOR) Kit empaglifloz Yes [id number] 1{tbl} Take 1 Univers in-metformi 7-28 tablet by ity of n (SYNJARDY 00:00: mouth 2 [place] as XR) 00 (two) Medical 12.5-1,000 times Branch mg TBph daily. flash Yes [id number] 1{each} 1 Each Un caio glucose 7-28 every 2 ity of sensor 00:00: (two) [place] (FREESTYLE 00 weeks. Medical YOJANA 2 Branch SENSOR) Kit flash Yes [id number] 1{each} 1 Each Un caio glucose 7-28 every 2 ity of sensor 00:00: (two) [place] (FREESTYLE 00 weeks. Medical YOJANA 2 Branch SENSOR) Kit flash Yes [id number] 1{each} 1 Each Un ciao glucose 7-28 every 2 ity of sensor 00:00: (two) [place] (FREESTYLE 00 weeks. Medical YOJANA 2 Branch SENSOR) Kit empaglifloz 2021- No [id number] 1{tbl} Take 1 Univers in-metformi 7-28 - tablet by it y of n (SYNJARDY 00:00: 00:00 [place] XR[place] 00 :00 (two) Medical 12.5-1,000 times Branch mg TBph daily. losartan 2019- Yes Take by Unive rs potassium 1-25 mouth. ity of (LOSARTAN 13:44: [place] ORAL) 37 Medical Branch losartan 2020- Yes Take by Unive rs potassium 1-25 mouth. ity of (LOSARTAN 13:44: [place] ORAL) 37 Medical Branch losartan 2019- Yes Take by Unive rs potassium 1-25 mouth. ity of (LOSARTAN 13:44: [place] ORAL) 37 Medical Branch losartan 2019-02 Yes Take by Unive rs potassium 1-25 mouth. ity of (LOSARTAN 13:44: [place] ORAL) 37 Medical Branch losartan 2020-1 Yes Take by Unive rs potassium 1-25 mouth. ity of (LOSARTAN 13:44: [place] ORAL) 37 Medical Branch Cholecalcif 2020-1 Yes Take by Un caio luc, 1-04 mouth. ity of Vitamin D3, 11:14: [place] (VITAMIN 47 Medical D3) 2,000 Branch unit capsule acetaminoph 2020-1 Yes 1{tbl} Take 1 Un caio en-codeine 1-04 tablet by ity of 300-30 mg 11:14: mouth [place] tablet 47 every 4 Medical (four) Branch hours as needed. Cholecalcif 2020- Yes Take by Un caio luc, 1-04 mouth. ity of Vitamin D3, 11:14: [place] (VITAMIN 47 Medical D3) 2,000 Branch unit capsule acetaminoph 2020-1 Yes 1{tbl} Take 1 Un caio en-codeine 1-04 tablet by ity of 300-30 mg 11:14: mouth [place] tablet 47 every 4 Medical (four) Branch hours as needed. Cholecalcif 2020- Yes Take by Un caio luc, 1-04 mouth. ity of Vitamin D3, 11:14: [place] (VITAMIN 47 Medical D3) 2,000 Branch unit capsule acetaminoph 2020-1 Yes 1{tbl} Take 1 Un caio en-codeine 1-04 tablet by ity of 300-30 mg 11:14: mouth [place] tablet 47 every 4 Medical (four) Branch hours as needed. Cholecalcif 2020- Yes Take by Un acio luc, 1-04 mouth. ity of Vitamin D3, 11:14: [place] (VITAMIN 47 Medical D3) 2,000 Branch unit capsule acetaminoph 2020-1 Yes 1{tbl} Take 1 Un caio en-codeine 1-04 tablet by ity of 300-30 mg 11:14: mouth [place] tablet 47 every 4 Medical (four) Branch hours as needed. Cholecalcif 2020-1 Yes Take by Un caio luc, 1-04 mouth. ity of Vitamin D3, 11:14: [place] (VITAMIN 47 Medical D3) 2,000 Branch unit capsule acetaminoph 2020-1 Yes 1{tbl} Take 1 Un caio en-codeine 1-04 tablet by ity of 300-30 mg 11:14: mouth [place] tablet 47 every 4 Medical (four) Branch hours as needed. SPIRONOLACT 2019-02 Yes 100mg Take 100 U nivers ONE ORAL 0-20 mg by ity of 14:17: mouth. [place] [address] Medical Branch Nitrofurant 2019-02 Yes 100mg Take 100 U nivers oin&Nit. 0-20 mg by ity of Macrocryst 14:17: mouth. [place] 100 mg 14 Medical capsule Branch SPIRONOLACT 2019-02 Yes 100mg Take 100 U nivers ONE ORAL 0-20 mg by ity of 14:17: mouth. [place] [address] Medical Branch Nitrofurant 2019-02 Yes 100mg Take 100 U nivers oin&Nit. 0-20 mg by ity of Macrocryst 14:17: mouth. [place] 100 mg 14 Medical capsule Branch SPIRONOLACT 2019-02 Yes 100mg Take 100 U nivers ONE ORAL 0-20 mg by ity of 14:17: mouth. [place] [address] Medical Branch Nitrofurant 2019-02 Yes 100mg Take 100 U nivers oin&Nit. 0-20 mg by ity of Macrocryst 14:17: mouth. [place] 100 mg 14 Medical capsule Branch SPIRONOLACT 2019-02 Yes 100mg Take 100 U nivers ONE ORAL 0-20 mg by ity of 14:17: mouth. [place] [address] Medical Branch Nitrofurant 2019-02 Yes 100mg Take 100 U nivers oin&Nit. 0-20 mg by ity of Macrocryst 14:17: mouth. [place] 100 mg 14 Medical capsule Branch SPIRONOLACT 2019-02 Yes 100mg Take 100 U nivers ONE ORAL 0-20 mg by ity of 14:17: mouth. [place] [address] Medical Branch Nitrofurant 2019-02 Yes 100mg Take 100 U nivers oin&Nit. 0-20 mg by ity of Macrocryst 14:17: mouth. [place] 100 mg 14 Medical capsule Branch OMEPRAZOLE 2018-0 Yes [id number] TAKE ONE Univers 40 mg 7-12 CAPSULE BY ity of capsule 00:00: MOUTH [place] 00 DAILY Medical Branch OMEPRAZOLE 2018-0 Yes [id number] TAKE ONE Univers 40 mg 7-12 CAPSULE BY ity of capsule 00:00: MOUTH [place] 00 DAILY Medical Branch OMEPRAZOLE 2018-0 Yes [id number] TAKE ONE Univers 40 mg 7-12 CAPSULE BY ity of capsule 00:00: MOUTH [place] 00 DAILY Medical Branch OMEPRAZOLE 2018-0 Yes [id number] TAKE ONE Univers 40 mg 7-12 CAPSULE BY ity of capsule 00:00: MOUTH DAILY Medical Branch OMEPRAZOLE 2018-0 Yes [id number] TAKE ONE Univers 40 mg 7-12 CAPSULE BY ity of capsule 00:00: MOUTH [place] 00 DAILY Medical Branch gabapentin 2018-0 Yes [id number] 100mg Take 1 Univers 100 mg 3-05 capsule by ity of capsule 00:00: mouth at [place] [address] bedtime. Medical Branch gabapentin 2018-0 Yes [id number] 100mg Take 1 Univers 100 mg 3-05 capsule by ity of capsule 00:00: mouth at [place] [address] bedtime. Medical Branch gabapentin 2018-0 Yes [id number] 100mg Take 1 Univers 100 mg 3-05 capsule by ity of capsule 00:00: mouth at [place] [address] bedtime. Medical Branch gabapentin 2018-0 Yes [id number] 100mg Take 1 Univers 100 mg 3-05 capsule by ity of capsule 00:00: mouth at [place] [address] bedtime. Medical Branch gabapentin 2018-0 Yes [id number] 100mg Take 1 Univers 100 mg 3-05 capsule by ity of capsule 00:00: mouth at [place] [address] bedtime. Medical Branch Immunizations Ordered Filled Immunization Date Status Comments [facility] Immunization Name Name Twinrix (hep a/hep 2020-12-18 Completed Univer sity of b) 00:00:00 [facility] Twinrix (hep a/hep 2020-07-20 Completed Univer sity of b) 00:00:00 [facility] Twinrix (hep a/hep 2020-06-17 Completed Univer sity of b) 00:00:00 [facility] Influenza Virus 2018-01-03 Completed Universit y of Vaccine 00:00:00 [facility] Vital Signs Vital Name Observation Time Observation Value Comments Source Body weight 2021-02-04 15:32:00 87 kg [facility] BMI 2021-02-04 15:32:00 33.98 kg/m2 [facility] Systolic blood 2021-02-04 15:32:00 145 mm[Hg] Univer sity of pressure [facility] Diastolic blood 2021-02-04 15:32:00 87 mm[Hg] Unive rsity of pressure [facility] Heart rate 2021-02-04 15:32:00 98 /min [facility] Body temperature 2021-02-04 15:32:[address] height 2021-02-04 15:32:00 160 cm [facility] Procedures Procedure Date / Time Performing Clinician Source Performed DME/SUPPLY JUSTIFICATION 2020-12-16 06:01:00 Doctor Unassigned, No [facility] Encounters Start End Encounter Admission Attending Care Care Encounter Source Date/Time Date/Time Type Type Clinicians Facility Department ID 2021-04-26 2021-04-26 Outpatient Kenyetta KAM [facility] [id number] Univers 15:00:00 15:00:[id number] [facility] 2021-04-09 2021-04-09 Outpatient Kenyetta GARCIA [facility] [id number] Univers 09:30:00 10:52:[address] [facility] 2021-04-09 2021-04-09 [facility] [id number] Univers 10:45:00 10:45:[id number] [facility] 2021-03-23 2021-03-23 [facility] [id number] Univers 00:00:00 00:00:00 Vitaly MULTISPEC [id number] ity of IALTY [id number] [facility] [facility] [id number] [address] [facility] 2021-03-09 2021-03-09 [facility] [id number] Univers 00:00:00 00:00:00 Vitaly MULTISPEC [id number] ity of IALTY [id number] [facility] [id number] [address] [facility]ETES [facility] 2021-03-08 2021-03-08 [facility] [id number] Univers 00:00:00 00:00:00 Kesha SPECIALTY [id number] ity of C[place] [id number] [place] [phone] Ar jaimiesafia CUELLAR [facility] 2021-03-05 2021-03-05 Outpatient KESHA CANDELARIO [facility] [id number] Univers 13:00:00 13:00:[address] [facility] 2021-03-01 2021-03-01 Outpatient Kenyetta KAM [facility] [id number] Univers 09:30:00 09:30:00 [facility] 2021-02-24 Outpatient R ROSA M [facility] [id number] Univers 13:20:00 13:20:00 LULÚ [id number] [facility]-02-24 2021-02-24 Outpatient Kenyetta MEDEROS [facility] [id number] Univers 13:20:00 13:20:00 chantal CHINO [facility] 2021-02-04 2021-02-04 Office [facility] [id number] Univers 09:40:00 10:02:20 Visit Kesha GARCIA [id number] ity of CARE [id number] [facility] CENTER AT [phone] Ar elena Ernandez [facility] 2021-02-02 2021-02-02 Outpatient Kenyetta RUSSO [facility] [id number] Univers 10:00:00 10:00:[address] [facility] 2021-01-25 2021-01-25 [id number] 05:41:00 23:59:00 ELROY 2020-12-16 2020-12-16 Orders Doctor RIYA [id number] Univers 00:00:00 00:00:00 Only Unassigned, BRIE [id number] ity of [place] [facility] [id number] [place] as [phone] [address] 2020-01-29 2020-01-29 [facility] [id number] 08:19:53 08:34:[address] ne [address] [facility] [id number] Cancer [id number] [facility] [phone] [facility] 144 2020-01-01 2020-01-01 [facility] [id number] 13:26:42 13:41:[address] [facility] [id number] Cancer [id number] [facility] [phone] [place] [address] Results This patient has no known results.
[2021-04-11] MEDS ORDERED: NA CHLORIDE 0.9% 1,000 ML ONE (17:21)
[2021-04-11] MEDS ORDERED: ONDANSETRON 4 MG/2 ML VIAL ONE (17:21)
[2021-04-11] MEDS ORDERED: MORPHINE 4 MG/ML SYR ONE ×2 (17:21→18:55)
[2021-04-11 17:30] LABS: Absolute Lymphocytes (CBC) 0.3 K/uL (0.7-4.9); Hematocrit 38.8 % (36.0-45.0); MPV 8.5 fL (7.6-11.3); RBC Red Blood Cell Count 3.87 M/uL (3.86-4.86)
[2021-04-11 17:49] LABS: Albumin 3.6 g/dL (3.4-5.0); Bilirubin Direct 0.6 mg/dL (0-0.2); Potassium 3.9 mmol/L (3.5-5.1)
--- NOTE | 2021-04-11 18:03 | RAD REPORT ---
EXAM DESCRIPTION: CT - Abdomen Pelvis W Contrast - 04/11/2021 5:50 pm CLINICAL HISTORY: ABD PAIN COMPARISON: Abdomen Pelvis W Contrast dated 03/10/2017 TECHNIQUE: Biphasic, helical CT imaging of the abdomen and pelvis was performed following 100 ml non -ionic IV contrast. No oral contrast administered. All CT scans are performed using dose optimization technique as appropriate and may include automated exposure control or mA/KV adjustment according to patient size. FINDINGS: A 3 mm subpleural nodule seen posterolateral lower right lung field not of long-term signi ficance. Advanced cirrhotic liver changes are present. Prominent nodularity of the liver capsule is present. U mbilical vein is recannulized and dilated. Enlarged left lobe relative to the right is noted. There a re no focal lesions of the liver identifiable. No portal vein thrombus. Splenomegaly is present with no focal splenic lesion. No pancreatic or peripancreatic process. Cholec ystectomy clips are present. No biliary tree dilatation. Renal function is asymmetric, delayed on the right with mild to moderate degree of hydronephrosis and hydroureter. This extends down to the UVJ. There is no obstructing calculus identifiable. There is s ome subtle hyperdensity at the UVJ. Inflammatory debris, blood or small mass lesion could cause this pattern. A recently passed stone is possible. There is no bladder calculus present. No left-sided hydronephrosis. There are left-sided parapelvic cysts present. No pyelonephritis or acu te parenchymal process. No bladder wall thickening or mass. Uterus and ovaries show no suspicious fin dings. No adrenal abnormalities. No stomach or small bowel abnormality. Moderate stool volume is present. Moderately prominent diverti culosis is present without diverticulitis. No appendicitis findings. No free air, free fluid or infl ammatory stranding. No hernia, mass or bulky lymphadenopathy. No suspicious bony findings. IMPRESSION: [id number] right-sided hydronephrosis and hydroureter down to the UVJ without obst ructing calculus present. There is slight hyperdensity at the UVJ. Non stone causes of obstruction include blood, inflammatory debris, mass or recently passed stone. There is no stone in the bladder. Advanced cirrhosis with no focal liver lesion. No ascites is present.
[2021-04-11 18:25] LABS: SARS-COV-2 RT PCR NEGATIVE (NEGATIVE)
[2021-04-11 18:35] LABS: Urine Blood Negative (Negative); Urine Glucose 3+ (Negative); Urine Protein Negative (Negative); Urine pH 6.5 (5.0-7.0)
[2021-04-11] MEDS ORDERED: CIPROFLOXACIN HCL 500 MG TAB ONE (18:55)
[2021-04-11] MEDS ORDERED: TAMSULOSIN 0.4 MG SR CAP ONE (18:56)
[2021-04-11 19:02] LABS: Urine Bacteria >50 /HPF (<20); Urine RBC <5 /HPF (NONE SEEN)
--- NOTE | 2021-04-11 19:37 | ER ---
Nurse's Notes [facility] Name: Sindi Corey Age: 66 yrs Sex: Female : 1955 Arrival Date: 04/11/2021 Time: 17:09 Bed 18 Private MD: Diagnosis: Unspecified hydronephrosis-and hydroureter, Recently passed stone;UTI/ Urinary tract infection, site not specified Presentation: 04/11 17:10 Chief complaint: EMS states: rlq abd pain that radiates to flank started 2hrs breaster. jh6 vomited x 1 breaster . Coronavirus screen: Vaccine status: Patient reports receiving the 2nd dose of the covid vaccine. Ebola Screen: Patient denies exposure to infectious person. Patient denies travel to an Ebola-affected area in the 21 days before illness onset. Initial Sepsis Screen: Does the patient meet any 2 criteria? No. Patient's initial sepsis screen is negative. Does the patient have a suspected source of infection? No. Patient's initial sepsis screen is negative. Risk Assessment: Do you want to hurt yourself or someone else? Patient reports no desire to harm self or others. Onset of symptoms was April 11, 2021. 17:10 Method Of Arrival: EMS: [place] [id number] 17:10 Acuity: ALONDRA 3 [facility] Historical: - Allergies: 17:12 Hydrocodone-Acetaminophen; [facility] - Home Meds: 17:12 Humalog Pen Sub-Q [Active]; Toujeo SoloStar 300 unit/mL (1.5 mL) subcutaneous [facility] [Active]; omeprazole 40 mg Oral cpDR 1 cap once daily [Active]; metoprolol tartrate 25 mg Oral tab 1 tab once daily [Active]; lisinopril-hydrochlorothiazide 20-12.5 mg Oral tab 1 tab once daily [Active]; - PMHx: 17:12 Cirrhosis; Diabetes - IDDM; Hypertension; [facility] - Immunization history:: Adult Immunizations up to date. - Social history:: Smoking status: Patient denies any tobacco usage or history of. Screenin:13 Abuse screen: Denies threats or abuse. Nutritional screening: No deficits noted. [facility] Tuberculosis screening: No symptoms or risk factors identified. Fall Risk No secondary diagnosis (0 pts). IV access (20 points). Ambulatory Aid-. Assessment: 17:14 General: Appears in no apparent distress. Behavior is calm, cooperative. Pain: 6 Complains of pain in anterior aspect of right lateral abdomen and right lower quadrant Pain currently is 8 out of 10 on a pain scale. Quality of pain is described as crampy, shooting. 18:00 Reassessment: Patient and/or family updated on plan of care and expected duration. Pain 6 level reassessed. Patient is alert, oriented x 3, equal unlabored respirations, skin warm/dry/pink. Patient states symptoms have improved. 18:00 Pain: Complains of pain in right lower quadrant Pain currently is 4 out of 10 on a pain [facility] scale. Quality of pain is described as crampy, sharp. Vital Signs: 17:10 BP 152 / 65; Pulse 81; Resp 17; Temp 98.1; Pulse Ox 100% ; Weight 81.19 kg; Height 5 6 ft. 3 in. (160.02 cm); Pain 8/10; 18:59 BP 122 / 48; Pulse 76; Resp 18; Pulse Ox 98% ; Pain 6/10; 6 20:05 BP 109 / 51 RA Sitting (auto/reg); Pulse 80 MON; Resp 16; Temp 97.9; Pulse Ox 100% on sv1 R/A; Pain 2/10; 17:10 Body Mass Index 31.71 (81.19 kg, 160.02 cm) 6 ED Course: 17:09 Patient arrived in ED. 6 17:10 Irina Shelley RN is Primary Nurse. jh6 17:10 [facility]-C [facility]. kb 17:10 Olvin Marx MD is Attending Physician. kb 17:12 Triage completed. jh6 17:13 Arm band placed on left wrist. Patient placed in an exam room, on a stretcher, on 6 patient monitor, on pulse oximetry. 17:14 No provider procedures requiring assistance completed. Inserted saline lock: 20 gauge [facility] in left antecubital area, using aseptic technique. Blood collected. Maintain EMS IV. Dressing intact. Good blood return noted. Gauge \T\ site: 20g l ac. 17:15 Placed in gown. Bed in low position. Call light in reach. Side rails up X 1. jh6 17:40 Patient moved to AR via wheelchair. jh6 17:43 PHCP role handed off by Jenelle Hicks FNP-C pm1 17:43 Pako Hayes NP is PHCP. pm1 17:50 CT Abd/Pelvis - IV Contrast Only In Process Unspecified. EDMS 19:21 Primary Nurse role handed off by Irina Shelley RN 20:05 Charlie Renee, RN is Primary Nurse. sv1 20:05 IV discontinued. sv1 Administered Medications: 17:26 Drug: Zofran (Ondansetron) 4 mg Route: IVP; Site: right antecubital; jh6 17:26 Drug: morphine 4 mg Route: IVP; Site: right antecubital; jh6 17:27 Drug: NS 0.9% 1000 ml Route: IV; Rate: 1000 ml; Site: right antecubital; jh6 18:57 Drug: Flomax (tamsulosin) 0.4 mg Route: PO; jh6 18:58 Drug: morphine 4 mg Route: IVP; Site: right antecubital; 6 18:58 Drug: Cipro (ciprofloxacin) 500 mg Route: PO; 6 Outcome: 19:37 Discharge ordered by MD. pm1 20:05 Discharged to home ambulatory, with family. sv1 20:05 Condition: improved 20:05 Discharge instructions given to patient, family. 20:07 Patient left the ED. sv1 Addendum: 04/14/2021 17:02 Addendum: Culture Results: Positive urine culture. Prescription called-in to pharmacy a a5 of choice. to [facility] in [place], [place] per pt's request. Called in Penicillin VK per RANDY Lala. Signatures: Dispatcher [employer] EDCA Jenelle Hicks FNP-C FNP-Ckb Calderon, Audri, RN RN aa5 aPko Hayes NP ANDROID FRAMEWORK DEVELOPER pm1 Karine Mello Irina Shelley RN RN 6 Charlie Renee, DELVIS RN 1
--- NOTE | 2021-04-11 19:38 | EDPHYS ---
Physician Documentation [facility] Name: Sindi Corey Age: 66 yrs Sex: Female : 1955 Arrival Date: 04/11/2021 Time: 17:09 Bed 18 Private MD: ED Physician Olvin Marx HPI: 04/11 17:18 This 66 yrs old Female presents to ER via EMS with complaints of abdominal kb pain. 17:18 The patient presents with abdominal pain right lower quadrant. Onset: The kb symptoms/episode began/occurred 2 hour(s) ago. The symptoms radiate to right back. Associated signs and symptoms: Pertinent positives: nausea and vomiting, Pertinent negatives: diarrhea, fever. The symptoms are described as constant. Modifying factors: The symptoms are alleviated by nothing, the symptoms are aggravated by nothing. Severity of pain: At its worst the pain was moderate in the emergency department the pain is unchanged. The patient has not experienced similar symptoms in the past. The patient has not recently seen a physician. 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 Denies fever, chills, diarrhea, urinary symptoms. . Historical: - Allergies: 17:12 Hydrocodone-Acetaminophen; [facility] - Home Meds: 17:12 Humalog Pen Sub-Q [Active]; Toujeo SoloStar 300 unit/mL (1.5 mL) [facility] [[facility]]; omeprazole 40 mg Oral cpDR 1 cap once daily [Active]; metoprolol tartrate 25 mg Oral tab 1 tab once daily [Active]; lisinopril-hydrochlorothiazide 20-12.5 mg Oral tab 1 tab once daily [Active]; - PMHx: 17:12 Cirrhosis; Diabetes - IDDM; Hypertension; [facility] - Immunization history:: Adult Immunizations up to date. - Social history:: Smoking status: Patient denies any tobacco usage or history of. ROS: 17:18 Constitutional: Negative for fever, chills, and weight loss. kb 17:18 Abdomen/GI: Positive for abdominal pain, nausea and vomiting, Negative for diarrhea, constipation. 17:18 All other systems are negative. Exam: 17:18 Constitutional: This is a well developed, well nourished patient who is awake, alert, kb and in no acute distress. Head/Face: Normocephalic, atraumatic. ENT: Moist Mucous membranes Cardiovascular: Regular rate and rhythm with a normal S1 and S2. No gallops, murmurs, or rubs. No pulse deficits. Respiratory: Respirations even and unlabored. No increased work of breathing. Talking in full sentences Skin: Warm, dry with normal turgor. Normal color. MS/ Extremity: Pulses equal, no cyanosis. Neurovascular intact. Full, normal range of motion. Neuro: Awake and alert, GCS 15, oriented to person, place, time, and situation. Moves all extremities. Normal gait. Psych: Awake, alert, with orientation to person, place and time. Behavior, mood, and affect are within normal limits. 17:18 Abdomen/GI: Inspection: abdomen appears normal, Bowel sounds: normal, in all quadrants, Palpation: soft, in all quadrants, moderate abdominal tenderness, in the anterior aspect of right lateral abdomen. Vital Signs: 17:10 BP 152 / 65; Pulse 81; Resp 17; Temp 98.1; Pulse Ox 100% ; Weight 81.19 kg; Height 5 jh6 ft. 3 in. (160.02 cm); Pain 8/10; 18:59 BP 122 / 48; Pulse 76; Resp 18; Pulse Ox 98% ; Pain 6/10; jh6 20:05 BP 109 / 51 RA Sitting (auto/reg); Pulse 80 MON; Resp 16; Temp 97.9; Pulse Ox 100% on sv1 R/A; Pain 2/10; 17:10 Body Mass Index 31.71 (81.19 kg, 160.02 cm) 6 MDM: 17:10 Patient medically screened. kb 17:21 Data reviewed: vital signs, nurses notes. Data interpreted: Pulse oximetry: on room air kb is 100 %. Interpretation: normal. 17:22 Transition of care: After a detail discussion of the patient's case, care is kb transferred to Pako Hayes NP. 19:35 Counseling: I had a detailed discussion with the patient and/or guardian regarding: the pm1 historical points, exam findings, and any diagnostic results supporting the discharge/admit diagnosis, lab results, radiology results, the need for outpatient follow up, for definitive care, a urologist, to return to the emergency department if symptoms worsen or persist or if there are any questions or concerns that arise at home. 19:42 ED course: Patient's pain completely resolved and patient is ready to go home. pm1 04/11 17:10 Order name: Basic Metabolic Panel; Complete Time: 17:54 kb 04/11 17:10 Order name: CBC with Diff; Complete Time: 19:44 kb 04/11 17:10 Order name: Hepatic Function; Complete Time: 17:54 kb 04/11 17:10 Order name: Lipase; Complete Time: 17:54 kb 04/11 17:11 Order name: Urine Microscopic Only; Complete Time: 19:08 kb 04/11 17:21 Order name: COVID-19/FLU A+B (Document "Date of Onset" if Symptomatic); Complete Time: kb 18:37 04/11 17:10 Order name: CT Abd/Pelvis - IV Contrast Only; Complete Time: 18:05 kb 04/11 18:35 Order name: Urine Dipstick-Ancillary; Complete Time: 18:37 EDMS 04/11 19:02 Order name: Urine Culture EDMS 04/11 19:39 Order name: CBC Smear Scan; Complete Time: 19:44 EDMS 04/11 17:10 Order name: IV Saline Lock; Complete Time: 17:27 kb 04/11 17:10 Order name: Labs collected and sent; Complete Time: 17:27 kb 04/11 17:11 Order name: Urine Dipstick-Ancillary (obtain specimen) kb Administered Medications: 17:26 Drug: Zofran (Ondansetron) 4 mg Route: IVP; Site: right antecubital; jh6 17:26 Drug: morphine 4 mg Route: IVP; Site: right antecubital; jh6 17:27 Drug: NS 0.9% 1000 ml Route: IV; Rate: 1000 ml; Site: right antecubital; jh6 18:57 Drug: Flomax (tamsulosin) 0.4 mg Route: PO; jh6 18:58 Drug: morphine 4 mg Route: IVP; Site: right antecubital; jh6 18:58 Drug: Cipro (ciprofloxacin) 500 mg Route: PO; 6 Disposition Summary: 04/11/21 19:37 Discharge Ordered Location: Home pm1 Problem: new pm1 Symptoms: have improved pm1 Condition: Stable pm1 Diagnosis - Unspecified hydronephrosis - and hydroureter, Recently passed stone pm1 - UTI/ Urinary tract infection, site not specified pm1 Followup: pm1 - With: Emergency Department - When: As needed - Reason: Worsening of condition Followup: pm1 - With: Private Physician - When: 2 - 3 days - Reason: Recheck today's complaints, Continuance of care, Re-evaluation by your physician Discharge Instructions: - Discharge Summary Sheet pm1 - Urinary Tract Infection, Adult pm1 - Hydronephrosis pm1 Forms: - Medication Reconciliation Form pm1 - Thank You Letter pm1 - Antibiotic Education pm1 - Prescription Opioid Use pm1 Prescriptions: - Cipro 500 mg Oral Tablet - take 1 tablet by ORAL route every 12 hours for 7 days; 14 tablet; Refills: 0, pm1 Product Selection Permitted - Flomax 0.4 mg Oral capsule - take 1 capsule by ORAL route once daily for 2 days 1/2 hour following the same pm1 meal each day; 2 capsule; Refills: 0, Product Selection Permitted - Tramadol 50 mg Oral Tablet - take 1 tablet by ORAL route every 8 hours as needed; 12 tablet; Refills: 0, pm1 Product Selection Permitted Addendum: 04/13/2021 08:13 Co-signature as Attending Physician, Olvin Marx MD. r n Signatures: Dispatcher [employer] Jenelle Lamar, ENVIRONMENTAL PROGRAMS MANAGER-C ENVIRONMENTAL PROGRAMS MANAGER-Ckb Olvin Marx MD MD rn Marinas, Patrick, NP CONTACT LENS MANUFACTURER pm1 Irina Shelley RN RN jh6
[2021-04-11 19:39] LABS: Anisocytosis 1+; Blood Morphology Comment NOTED (NOT SEEN); Platelet Estimate DECR; Poikilocytosis 2+; White Blood Cell Scan OK (OK)
[2021-04-11 21:01] VITALS: BP 109/51; TEMP 97.9; O2SAT 100
== END 2021-04-11 20:07 | disposition home or self-care (01) ==
LOC: ER 16:59
DX: N39.0 Urinary tract infection, site not specified (principal); N13.30 Unspecified hydronephrosis; N13.4 Hydroureter; I10 Essential (primary) hypertension; E11.9 Type 2 diabetes mellitus without complications; Z79.4 Long term (current) use of insulin; Z20.822 Contact with and (suspected) exposure to COVID-19; Z88.5 Allergy status to narcotic agent
CPT/HCPCS: 87088; 85025; 87086; 80048; 36415; 82565; 80076; 83690; 0240U; 74177; 96375; 96374; 99284; Q9967; J7030; J2405; 81003; 81015; 87077; 87186

== ENCOUNTER 2023-08-13 14:11 | Emergency (ER) | payer OTHER ==
[2023-08-13 15:21] LABS: Absolute Eosinophils 0.2 K/uL (0-0.5); Absolute Lymphocytes (CBC) 0.6 K/uL (0.7-4.9); Absolute Monocytes 0.5 K/uL (0.1-1.3); Absolute Neutrophil 3.9 K/uL (1.8-8.0); Basophils % 0.1 % (0-1.3); Eosinophils % 3.2 % (0-4.4); Hematocrit 38.6 % (36.0-45.0); Hemoglobin 13.1 g/dL (12.0-15.0); MCH 31.2 pg (27.0-35.0); MCHC 33.9 g/dL (32.0-36.0); MCV 92.2 fL (80-100); MPV 8.2 fL (7.6-11.3); Monocytes % 9.1 % (3.3-12.3); Neutrophils % 76.6 % (41.7-73.7); Nucleated Red Blood Cells % 0.1 % (0-0); Platelets 52 thou/uL (152-406); RBC Red Blood Cell Count 4.19 M/uL (3.86-4.86); Red Cell Distribution Width 18.1 % (12.1-15.2)
[2023-08-13 15:36] LABS: Anion Gap 8.3 mEq/L (5.0-15.0)
[2023-08-13 15:37] LABS: Potassium 4.3 mEq/L (3.5-5.1)
[2023-08-13 15:47] LABS: Platelet Estimate DECR; White Blood Cell Scan OK (OK)
[2023-08-13 15:48] LABS: Blood Morphology Comment NOT SEEN (NOT SEEN)
--- NOTE | 2023-08-13 15:50 | RAD REPORT ---
[facility] 3:30 pm CLINICAL HISTORY: left leg pain COMPARISON: 2019 FINDINGS: Left common femoral, superficial femoral, greater saphenous, popliteal and posterior tibi al veins are compressible and demonstrate augmentation. Doppler demonstrates good flow. Grayscale, color and spectral analysis performed on all vessels IMPRESSION: No evidence of deep venous thrombosis involving the left lower extremity.
[2023-08-13] MEDS ORDERED: KETOROLAC 30 MG/ML INJ ONE (15:51)
--- NOTE | 2023-08-13 16:18 | ER ---
Nurse's Notes [facility] Name: Sindi Corey Age: 68 yrs Sex: Female : 1955 Arrival Date: 08/13/2023 Time: 14:11 Bed 20 Private MD: Diagnosis: Cellulitis of left lower limb Presentation: 08/12 14:38 Chief complaint: Patient states: Dx w/ cellulitis last Monday, [facility], discharged yesterday, redness is improving but still has severe pain. Coronavirus screen: Vaccine status: Patient reports receiving the 2nd dose of the covid vaccine. Ebola Screen: No symptoms or risks identified at this time. Initial Sepsis Screen: Does the patient meet any 2 criteria? No. Patient's initial sepsis screen is negative. Does the patient have a suspected source of infection? No. Patient's initial sepsis screen is negative. Risk Assessment: Do you want to hurt yourself or someone else? Patient reports no desire to harm self or others. Onset of symptoms was August 13, 2023. 14:38 Method Of Arrival: Wheelchair ph 14:38 Acuity: ALONDRA 3 ph Historical: - Allergies: 14:42 Hydrocodone-Acetaminophen; ph - Home Meds: 15:21 Humalog Pen Sub-Q [Active]; lisinopril-hydrochlorothiazide 20-12.5 mg Oral tab 1 tab le1 once daily [Active]; metoprolol tartrate 25 mg Oral tab 1 tab once daily [Active]; omeprazole 40 mg Oral cpDR 1 cap once daily [Active]; Toujeo SoloStar 300 unit/mL (1.5 mL) subcutaneous inpn [Active]; - PMHx: 14:42 Cirrhosis; Diabetes - IDDM; Hypertension; ph - Immunization history:: Adult Immunizations unknown. - Infectious Disease History:: Denies. - Social history:: Smoking status: Patient denies any tobacco usage or history of. Screenin:20 [facility] ED Fall Risk Assessment (Adult) History of falling in the last 3 months, le1 including since admission No falls in past 3 months (0 pts) Confusion or Disorientation No (0 pts) Intoxicated or Sedated No (0 pts) Impaired Gait Yes (1 pt) Mobility Assist Device Used Yes (1 pt) Altered Elimination No (0 pt) Score/Fall Risk Level 0 - 2 = Low Risk Oriented to surroundings, Maintained a safe environment, Educated pt \T\ family on fall prevention, incl call for assistance when getting out of bed, Assessed \T\ reinforced patient's understanding of fall precautions, Hourly rounding (assess needs \T\ fall precautionary measures) done, Used ambulatory aids as needed (educated on \T\ assisted with). Abuse screen: Denies threats or abuse. Nutritional screening: No deficits noted. Tuberculosis screening: No symptoms or risk factors identified. Assessment: 15:18 General: Appears in no apparent distress. comfortable, Behavior is calm, cooperative. le1 Pain: Complains of pain in left leg Pain currently is 7 out of 10 on a pain scale. Quality of pain is described as burning, throbbing. Neuro: No deficits noted. Cardiovascular: No deficits noted. Respiratory: No deficits noted. GI: No deficits noted. : No deficits noted. Derm: Skin is red. 16:25 Reassessment: No changes from previously documented assessment. Patient and/or family ll1 updated on plan of care and expected duration. Pain level reassessed. Patient is alert, oriented x 3, equal unlabored respirations, skin warm/dry/pink. Patient states feeling better. Vital Signs: 14:38 BP 148 / 75; Pulse 71; Resp 18; Temp 98.6; Pulse Ox 98% on R/A; Weight 71.21 kg; Height ph 5 ft. 2 in. ; 15:22 BP 125 / 63; Pulse 67; Resp 18; Pulse Ox 97% ; le1 16:27 BP 117 / 54; Pulse 63; Resp 18; Temp 97.9; Pulse Ox 98% ; le1 14:38 Body Mass Index 28.72 (71.21 kg, 157.48 cm) ph ED Course: 14:13 Patient arrived in ED. im 14:22 Jenelle Hicks FNP-C is PHCP. kb 14:22 Deven Burkett MD is Attending Physician. kb 14:42 Triage completed. ph 14:42 Arm band placed on Patient placed in an exam room. ph 14:50 Toi Cameron, DELVIS is Primary Nurse. le1 15:00 Initial lab(s) drawn, by nj, sent to lab. First set of blood cultures drawn by nj. le1 15:06 Second set of blood cultures drawn by me. le1 15:21 Patient has correct armband on for positive identification. Bed in low position. Call le1 light in reach. Side rails up X 1. Adult w/ patient. Provided Education on: use call light if need for assistance. 15:23 Inserted saline lock: 20 gauge in right antecubital area, using aseptic technique. le1 Blood collected. 15:31 US Extremity Venous Unilateral Ltd In Process Unspecified. EDMS 16:28 No provider procedures requiring assistance completed. IV discontinued, intact, le1 bleeding controlled, No redness/swelling at site. Pressure dressing applied. Administered Medications: 15:53 Drug: Ketorolac IVP 15 mg IVP once Route: IVP; Site: right antecubital; le1 16:29 Follow up: Response: No adverse reaction; Pain is decreased le1 Medication: 15:22 VIS not applicable for this client. le1 Outcome: 16:17 Discharge ordered by . kb 16:28 Discharged to home via wheelchair, le1 16:28 Condition: improved 16:28 Discharge instructions given to patient, family, Instructed on discharge instructions, follow up and referral plans. Demonstrated understanding of instructions, follow-up care, 16:28 Patient left the ED. le1 Signatures: Dispatcher [employer] EDMS Jenelle Hicks, TRAVELING SALES REPRESENTATIVE-C TRAVELING SALES REPRESENTATIVE-Dori Way, RN RN Sherri Gar RN RN hong1 Carolina Jordan LaKendric RN RN le1
--- NOTE | 2023-08-13 16:18 | EDPHYS ---
Physician Documentation [facility] Name: Sindi Corey Age: 68 yrs Sex: Female : 1955 Arrival Date: 08/13/2023 Time: 14:11 Bed 20 Private MD: ED Physician Deven Burkett HPI: 08/12 16:59 This 68 yrs old Female presents to ER via Wheelchair with complaints of Leg kb Swelling, Leg Pain. 16:59 Pt is a 68 year old female who presents for cellulitis of left leg. States she was kb admitted to [facility] for 5 days on IV antibiotics and discharged yesterday on oral antibiotics. Came in today because she still has pain and the infection is not gone yet. Daughter states she thinks the infection should be gone because she was on IV antibiotics for 5 days. Redness and swelling has gotten better since starting antibiotics. Historical: - Allergies: 14:42 Hydrocodone-Acetaminophen; ph - Home Meds: 15:21 Humalog Pen Sub-Q [Active]; lisinopril-hydrochlorothiazide 20-12.5 mg Oral tab 1 tab le1 once daily [Active]; metoprolol tartrate 25 mg Oral tab 1 tab once daily [Active]; omeprazole 40 mg Oral cpDR 1 cap once daily [Active]; Toujeo SoloStar 300 unit/mL (1.5 mL) subcutaneous inpn [Active]; - PMHx: 14:42 Cirrhosis; Diabetes - IDDM; Hypertension; ph - Immunization history:: Adult Immunizations unknown. - Infectious Disease History:: Denies. - Social history:: Smoking status: Patient denies any tobacco usage or history of. ROS: 16:58 Constitutional: As per HPI kb Exam: 16:58 Constitutional: This is a well developed, well nourished patient who is awake, alert, kb and in no acute distress. Head/Face: Normocephalic, atraumatic. ENT: Moist Mucous membranes Cardiovascular: Regular rate Respiratory: Respirations even and unlabored. No increased work of breathing. Talking in full sentences Abdomen/GI: Soft, non-tender. No distention MS/ Extremity: Pulses equal, no cyanosis. Neurovascular intact. Full, normal range of motion. Neuro: Awake and alert, GCS 15, oriented to person, place, time, and situation. Moves all extremities. Normal gait. 16:58 Skin: cellulitis, that is moderate, on the left hendrickson, anterior aspect of left ankle and dorsum of left foot, Vital Signs: 14:38 BP 148 / 75; Pulse 71; Resp 18; Temp 98.6; Pulse Ox 98% on R/A; Weight 71.21 kg; Height ph 5 ft. 2 in. ; 15:22 BP 125 / 63; Pulse 67; Resp 18; Pulse Ox 97% ; le1 16:27 BP 117 / 54; Pulse 63; Resp 18; Temp 97.9; Pulse Ox 98% ; le1 14:38 Body Mass Index 28.72 (71.21 kg, 157.48 cm) ph MDM: 14:22 Patient medically screened. kb 16:58 Differential diagnosis: abscess, cellulitis, dvt. Data reviewed: vital signs, nurses kb notes. Consideration of Admission/Observation Escalation of care including admission/observation considered. admission considered, but pt is nontoxic in appearance, labs reassuring, erythema and swelling has improved since starting antibiotics, afebrile. . Historians other than the Patient: Daughter/Son: daughter. Counseling: I had a detailed discussion with the patient and/or guardian regarding the historical points, exam findings, and any diagnostic results supporting the discharge/admit diagnosis, lab results, radiology results, the need for outpatient follow up, a family practitioner, to return to the emergency department if symptoms worsen or persist or if there are any questions or concerns that arise at home. 08/12 14:41 Order name: CBC with Diff; Complete Time: 15:50 kb 08/12 14:41 Order name: BMP; Complete Time: 15:37 kb 08/12 14:41 Order name: Blood Culture Adult (2) kb 08/12 15:25 Order name: CBC Smear Scan; Complete Time: 15:50 EDMS 08/12 14:41 Order name: US Extremity Venous Unilateral Ltd; Complete Time: 15:52 kb 08/12 14:41 Order name: IV Start; Complete Time: 15:15 kb Administered Medications: 15:53 Drug: Ketorolac IVP 15 mg IVP once Route: IVP; Site: right antecubital; le1 16:29 Follow up: Response: No adverse reaction; Pain is decreased le1 Disposition Summary: 08/13/23 16:17 Discharge Ordered Notes: Location: Home kb Condition: Stable kb Diagnosis - Cellulitis of left lower limb kb Followup: kb - With: Emergency Department - When: As needed - Reason: Worsening of condition Followup: kb - With: Private Physician - When: 2 - 3 days - Reason: Recheck today's complaints, Continuance of care, Re-evaluation by your physician Discharge Instructions: - Discharge Summary Sheet kb - Cellulitis, Adult, Vovf-rb-Advl kb Forms: - Medication Reconciliation Form kb - Antibiotic Education kb - Prescription Opioid Use kb - Patient Portal Instructions kb - Leadership Thank You Letter kb Signatures: Dispatcher [employer] EDMS Jenelle Hicks, WORKSITE WELLNESS PRACTITIONER-C WORKSITE WELLNESS PRACTITIONER-Dori Way, RN RN Toi Cameron RN RN le1
[2023-08-13 16:48] VITALS: BP 117/54; TEMP 97.9; O2SAT 98
== END 2023-08-13 16:28 | disposition home or self-care (01) ==
LOC: ER 14:11
DX: L03.116 Cellulitis of left lower limb (principal)
CPT/HCPCS: 36415; 80048; 85025; 87040; 93971; 96374; 99284

== ENCOUNTER 2024-06-25 14:37 | Emergency (ER) | payer OTHER ==
[2024-06-25 16:20] LABS: Absolute Eosinophils 0.1 K/uL (0-0.5); Absolute Lymphocytes (CBC) 0.6 K/uL (0.7-4.9); Absolute Monocytes 0.3 K/uL (0.1-1.3); Absolute Neutrophil 1.2 K/uL (1.8-8.0); Basophils % 0.9 % (0-1.3); Eosinophils % 4.5 % (0-4.4); Hematocrit 36.1 % (36.0-45.0); Hemoglobin 12.6 g/dL (12.0-15.0); Lymphocytes % 26.5 % (15.3-44.8); MCH 32.4 pg (27.0-35.0); MCV 92.5 fL (80-100); MPV 7.5 fL (7.6-11.3); Neutrophils % 56.1 % (41.7-73.7); Nucleated Red Blood Cells % 0.3 % (0-0); Platelets 41 thou/uL (152-406); Red Cell Distribution Width 22.2 % (12.1-15.2)
[2024-06-25 16:38] LABS: Anion Gap 9.8 mEq/L (5.0-15.0); Potassium 3.8 mEq/L (3.5-5.1); Troponin High Sensitivity 5.6 pg/mL (<58.9)
--- NOTE | 2024-06-25 17:30 | EDPHYS ---
Physician Documentation [facility] Name: Sindi Corey Age: 69 yrs Sex: Female : 1955 Arrival Date: 06/25/2024 Time: 14:37 Bed 17 Private MD: ED Physician Adan Dailey HPI: 06/25 16:03 This 69 yrs old Female presents to ER via Ambulatory with complaints of Arm sp3 Pain, low blood pressure, General Weakness. 16:03 69-year-old female with history of diabetes, known cirrhosis, hypertension presents sp3 with malaise and low blood pressure reading at home of 84/60 by home health nurse. Patient has no significant symptoms other than the generalized weakness. She denies any shortness of breath, chest pain, headache, fall, trauma, syncope, abdominal pain, vomiting, diarrhea, focal neurological deficit, or any other signs or symptoms on ROS at this time.. Historical: - Allergies: 14:53 Hydrocodone-Acetaminophen; db - PMHx: 14:53 Diabetes - IDDM; Cirrhosis; Hypertension; db - Immunization history:: Adult Immunizations unknown. - Infectious Disease History:: Denies. - Social history:: Smoking status: Patient denies any tobacco usage or history of. ROS: 16:07 Constitutional: Negative for fever, chills, and weight loss, Eyes: Negative for injury, sp3 pain, redness, and discharge, ENT: Negative for injury, pain, and discharge, Neck: Negative for injury, pain, and swelling, Respiratory: Negative for shortness of breath, cough, wheezing, and pleuritic chest pain, Abdomen/GI: Negative for abdominal pain, nausea, vomiting, diarrhea, and constipation, Back: Negative for injury and pain, MS/Extremity: Negative for injury and deformity, Skin: Negative for injury, rash, and discoloration, Neuro: Negative for headache, weakness, numbness, tingling, and seizure, Psych: Negative for depression, anxiety, suicide ideation, homicidal ideation, and hallucinations, Allergy/Immunology: Negative for hives, rash, and allergies, Endocrine: Negative for neck swelling, polydipsia, polyuria, polyphagia, and marked weight changes, 16:07 All other systems are negative, Exam: 16:07 Constitutional: This is a well developed, well nourished patient who is awake, alert, sp3 and in no acute distress. Head/Face: Normocephalic, atraumatic. Eyes: Pupils equal round and reactive to light, extra-ocular motions intact. Lids and lashes normal. Conjunctiva and sclera are non-icteric and not injected. Cornea within normal limits. Periorbital areas with no swelling, redness, or edema. Neck: Trachea midline, no thyromegaly or masses palpated, and no cervical lymphadenopathy. Supple, full range of motion without nuchal rigidity, or vertebral point tenderness. No Meningismus. Chest/axilla: Normal chest wall appearance and motion. Nontender with no deformity. No lesions are appreciated. Cardiovascular: Regular rate and rhythm with a normal S1 and S2. No gallops, murmurs, or rubs. Normal PMI, no JVD. No pulse deficits. Respiratory: Lungs have equal breath sounds bilaterally, clear to auscultation and percussion. No rales, rhonchi or wheezes noted. No increased work of breathing, no retractions or nasal flaring. Abdomen/GI: Soft, non-tender, with normal bowel sounds. No distension or tympany. No guarding or rebound. No evidence of tenderness throughout. Back: No spinal tenderness. No costovertebral tenderness. Full range of motion. Skin: Warm, dry with normal turgor. Normal color with no rashes, no lesions, and no evidence of cellulitis. MS/ Extremity: Pulses equal, no cyanosis. Neurovascular intact. Full, normal range of motion. Neuro: Awake and alert, GCS 15, oriented to person, place, time, and situation. Cranial nerves II-XII grossly intact. Motor strength 5/5 in all extremities. Sensory grossly intact. Cerebellar exam normal. Normal gait. Psych: Awake, alert, with orientation to person, place and time. Behavior, mood, and affect are within normal limits. 16:28 ECG was reviewed by the Attending Physician. EKG demonstrates normal sinus rhythm at 66 sp3 bpm with normal intervals, normal QRS, normal axis, normal ST/T-segment's without evidence of acute ischemia. Vital Signs: 14:52 BP 123 / 65; Pulse 70; Resp 16; Temp 98.2; Pulse Ox 97% ; Weight 73.03 kg; Height 5 ft. db 3 in. ; 16:23 BP 117 / 57; Pulse 67; Resp 18; Pulse Ox 100% on R/A; mb9 17:26 BP 122 / 52; Pulse 67; Resp 18; Pulse Ox 100% on R/A; mb9 17:46 BP 109 / 54; Pulse 74; Resp 18; Pulse Ox 100% on R/A; mb9 14:52 Body Mass Index 28.52 (73.03 kg, 160.02 cm) db NIH Stroke Scale Scores: 14:54 NIHSS Score: 0 db MDM: 15:01 Medical Screening Exam initiated sp3 16:08 Data reviewed: vital signs, nurses notes, old medical records, lab test result(s), EKG, sp3 radiologic studies. ED course: 69-year-old female with PMH above now with a resolved hypertension episode at home. Differential diagnosis includes incorrect reading, transient hypotension, orthostatic hypertension, electrolyte abnormality, metabolic derangement, ACS, among others. Here vital signs are completely normal with blood pressure 123/65, pulse 70, afebrile and 16 respirations. 97% on room air. Patient has no complaints and is resting comfortably. Will obtain general labs, EKG and chest x-ray. If workup negative and patient remains normal, we will safely discharge patient home. I am not highly suspicious of sepsis, shock, ACS, stroke or any other critical process at this time.. 17:29 ED course: Full workup negative. Will safely discharge patient home at this time. Vital sp3 signs remain normal including blood pressure.. 06/25 16:03 Order name: Basic Metabolic Panel; Complete Time: 16:49 06/25 16:03 Order name: CBC with Diff 3 06/25 16:03 Order name: Troponin HS; Complete Time: 16:49 3 06/25 16:03 Order name: Lipase; Complete Time: 16:49 3 06/25 16:03 Order name: XRAY Chest (1 view) 06/25 16:03 Order name: Cardiac monitoring; Complete Time: 16:29 06/25 16:03 Order name: EKG - Nurse/Tech; Complete Time: 16:29 06/25 16:03 Order name: IV Saline Lock; Complete Time: 16:29 3 06/25 16:03 Order name: Labs collected and sent; Complete Time: 16:29 3 05/20 16:03 Order name: O2 Per Protocol; Complete Time: 16:29 sp3 06/25 16:03 Order name: O2 Sat Monitoring; Complete Time: 16:29 sp3 Administered Medications: No medications were administered Disposition Summary: 06/25/24 17:30 Discharge Ordered Notes: Location: Home sp3 Condition: Stable sp3 Diagnosis - Transient hypotension, resolved sp3 Followup: sp3 - With: Private Physician - When: Upon discharge from the Emergency Department - Reason: Continuance of care Discharge Instructions: - Discharge Summary Sheet sp3 - Hypotension sp3 Forms: - Medication Reconciliation Form sp3 - Antibiotic Education sp3 - Prescription Opioid Use sp3 - Patient Portal Instructions sp3 - Leadership Thank You Letter sp3 NIH Stroke Scale - NIH Stroke Score Date: 06/25/2024 Time: 14:54 Total Score = 0 10. Dysarthria (speech clarity - read or repeat words) - 0(Normal) 11. Extinction and Inattention (visual/tactile/auditory/spatial/personal) - 0(No abnormality) 1a. Level of Consciousness (LOC) - 0(Alert) 1b. Level of Consciousness (LOC) (Month \T\ Age) - 0(Both) 1c. LOC Commands (Open \T\ Closes Eyes/Career Guidance Technician) - 0(Both) 2. Best Gaze (Lateral Gaze Paresis) - 0(Normal) 3. Visual Field Loss - 0(No visual loss) 4. Facial Palsy - 0(Normal) 5a. Left Arm: Motor (10-second hold) - 0(No drift) 5b. Right Arm: Motor (10-second hold) - 0(No drift) 6a. Left Leg: Motor (5-second hold - always test supine) - 0(No drift) 6b. Right Leg: Motor (5-second hold - always test supine) - 0(No drift) 7. Limb Ataxia (finger/nose \T\ heel/hendrickson - test with eyes open) - 0(Absent) 8. Sensory Loss (pinprick arms/legs/face) - 0(Normal) 9. Best Language: Aphasia (description/naming/reading) - 0(No aphasia) Initials: db Signatures: Dispatcher [employer] EDAdan Montero MD MD sp3 Autumn Al RN RN db Corrections: (The following items were deleted from the chart) 16:03 16:03 BASIC METABOLIC PANEL+C.LAB.BRZ ordered. EDMS EDMS 16:03 16:03 CBC+H.LAB.BRZ ordered. EDMS EDMS 16:03 16:03 Troponin High Sensitivity+C.LAB.BRZ ordered. EDMS EDMS 16:03 16:03 LIPASE+C.LAB.BRZ ordered. EDMS EDMS 16:03 16:03 Chest Single View+RAD.RAD.BRZ ordered. EDMS EDMS
--- NOTE | 2024-06-25 17:30 | ER ---
Nurse's Notes [facility] Name: Sindi Corey Age: 69 yrs Sex: Female : 1955 Arrival Date: 06/25/2024 Time: 14:37 Bed 17 Private MD: Diagnosis: Transient hypotension, resolved Presentation: 06/25 14:51 Chief complaint: Chief complaint: Patient states: GENERAL WEAKNESS, LEFT ARM PAIN NEAR db SUGAR CHECK SENSOR. LOW BP BY HOME HEALTH NURSE OF 84/52. PT AMBULATORY IN TRIAGE WITH [facility]. NO DEFICITS NOTED. 14:52 Coronavirus screen: Client denies travel out of the [place] in the last 14 days. At this db time, the client does not indicate any symptoms associated with coronavirus-19. Ebola Screen: Patient negative for fever greater than or equal to 101.5 degrees Fahrenheit, and additional compatible Ebola Virus Disease symptoms Patient denies exposure to infectious person. Patient denies travel to an Ebola-affected area in the 21 days before illness onset. No symptoms or risks identified at this time. Initial Sepsis Screen: Does the patient meet any 2 criteria? No. Patient's initial sepsis screen is negative. Does the patient have a suspected source of infection? No. Patient's initial sepsis screen is negative. Risk Assessment: Do you want to hurt yourself or someone else? Patient reports no desire to harm self or others. Onset of symptoms was June 25, 2024. 14:52 Method Of Arrival: Ambulatory db 14:52 Acuity: ALONDRA 3 db Triage Assessment: 14:53 General: Appears in no apparent distress. comfortable, Behavior is calm, cooperative. db Pain: Complains of pain in left tricep. Neuro: Level of Consciousness is awake, alert, obeys commands, Oriented to person, place, time, situation. Cardiovascular: No deficits noted. Respiratory: Airway is patent Respiratory effort is even, unlabored, Respiratory pattern is regular, symmetrical. GI: No deficits noted. No signs and/or symptoms were reported involving the gastrointestinal system. : No deficits noted. No signs and/or symptoms were reported regarding the genitourinary system. Historical: - Allergies: 14:53 Hydrocodone-Acetaminophen; db - PMHx: 14:53 Diabetes - IDDM; Cirrhosis; Hypertension; db - Immunization history:: Adult Immunizations unknown. - Infectious Disease History:: Denies. - Social history:: Smoking status: Patient denies any tobacco usage or history of. Screenin:39 [facility] ED Fall Risk Assessment (Adult) History of falling in the last 3 months, mb9 including since admission No falls in past 3 months (0 pts) Confusion or Disorientation No (0 pts) Intoxicated or Sedated No (0 pts) Impaired Gait No (0 pts) Mobility Assist Device Used No (0 pt) Altered Elimination No (0 pt) Score/Fall Risk Level 0 - 2 = Low Risk Oriented to surroundings, Maintained a safe environment, Educated pt \T\ family on fall prevention, incl call for assistance when getting out of bed. Abuse screen: Denies threats or abuse. Nutritional screening: No deficits noted. Tuberculosis screening: No symptoms or risk factors identified. Assessment: 15:37 General: Appears in no apparent distress. Behavior is calm, cooperative. Pain: mb9 Complains of pain in left arm and left tricep Quality of pain is described as aching. Neuro: Rios Agitation-Sedation Scale (RASS): 0 - Alert and Calm Level of Consciousness is awake, alert, obeys commands, Oriented to person, place, time, situation, Appropriate for age. Neuro: Reports paresthesias in entire body. Cardiovascular: Heart tones S1 S2 present Patient's skin is warm and dry. Respiratory: Reports shortness of breath at rest Airway is patent Respiratory effort is even, unlabored, Respiratory pattern is regular, symmetrical. GI: Abdomen is round non-distended, Bowel sounds present X 4 quads. Abd is soft and non tender X 4 quads. : No signs and/or symptoms were reported regarding the genitourinary system. EENT: No signs and/or symptoms were reported regarding the EENT system. Derm: Skin is pink, warm \T\ dry. Musculoskeletal: Range of motion: intact in all extremities. 16:45 Reassessment: No changes from previously documented assessment. Patient and/or family mb9 updated on plan of care and expected duration. Pain level reassessed. Patient is alert, oriented x 3, equal unlabored respirations, skin warm/dry/pink. 17:46 Reassessment: Patient and/or family updated on plan of care and expected duration. Pain mb9 level reassessed. Patient is alert, oriented x 3, equal unlabored respirations, skin warm/dry/pink. Patient states feeling better. Patient states symptoms have improved. Vital Signs: 14:52 BP 123 / 65; Pulse 70; Resp 16; Temp 98.2; Pulse Ox 97% ; Weight 73.03 kg; Height 5 ft. db 3 in. ; 16:23 BP 117 / 57; Pulse 67; Resp 18; Pulse Ox 100% on R/A; mb9 17:26 BP 122 / 52; Pulse 67; Resp 18; Pulse Ox 100% on R/A; mb9 17:46 BP 109 / 54; Pulse 74; Resp 18; Pulse Ox 100% on R/A; mb9 14:52 Body Mass Index 28.52 (73.03 kg, 160.02 cm) db NIH Stroke Scale Scores: 14:54 NIHSS Score: 0 db ED Course: 14:40 Patient arrived in ED. al6 14:40 Adan Dailey MD is Attending Physician. sp3 14:53 Triage completed. db 14:53 Arm band placed on right wrist. db 15:27 Jackie Trevino, DELVIS is Primary Nurse. mb9 15:39 Placed in gown. Bed in low position. Call light in reach. Side rails up X 1. Provided mb9 Education on: press call light if needing anything. Client placed on continuous cardiac and pulse oximetry monitoring. NIBP monitoring applied. color television console monitor on. Door closed. Noise minimized. Warm blanket given. Pillow given. 15:40 No provider procedures requiring assistance completed. mb9 16:23 Initial lab(s) drawn, by me, sent to lab. EKG done, by ED staff, reviewed by Adan Dailey MD. Inserted saline lock: 20 gauge in right antecubital area, using aseptic technique. Blood collected. Flushed with 10 mL NS. 16:58 XRAY Chest (1 view) In Process Unspecified. EDMS 17:46 IV discontinued, intact, bleeding controlled, No redness/swelling at site. Pressure mb9 dressing applied. Administered Medications: No medications were administered Medication: 15:40 VIS not applicable for this client. mb9 Outcome: 17:30 Discharge ordered by . sp3 17:46 Discharged to home ambulatory, with family, amina 17:46 Condition: stable 17:46 Discharge instructions given to patient, Instructed on discharge instructions, follow up and referral plans. Demonstrated understanding of instructions, follow-up care, 17:47 Patient left the ED. mb9 NIH Stroke Scale - NIH Stroke Score Date: 06/25/2024 Time: 14:54 Total Score = 0 10. Dysarthria (speech clarity - read or repeat words) - 0(Normal) 11. Extinction and Inattention (visual/tactile/auditory/spatial/personal) - 0(No abnormality) 1a. Level of Consciousness (LOC) - 0(Alert) 1b. Level of Consciousness (LOC) (Month \T\ Age) - 0(Both) 1c. LOC Commands (Open \T\ Closes Eyes/Doll Wigs Hackler) - 0(Both) 2. Best Gaze (Lateral Gaze Paresis) - 0(Normal) 3. Visual Field Loss - 0(No visual loss) 4. Facial Palsy - 0(Normal) 5a. Left Arm: Motor (10-second hold) - 0(No drift) 5b. Right Arm: Motor (10-second hold) - 0(No drift) 6a. Left Leg: Motor (5-second hold - always test supine) - 0(No drift) 6b. Right Leg: Motor (5-second hold - always test supine) - 0(No drift) 7. Limb Ataxia (finger/nose \T\ heel/hendrickson - test with eyes open) - 0(Absent) 8. Sensory Loss (pinprick arms/legs/face) - 0(Normal) 9. Best Language: Aphasia (description/naming/reading) - 0(No aphasia) Initials: db Signatures: Dispatcher [employer] Adan Fink MD MD sp3 Autumn Al RN RN db Jackie Trevino RN RN mb9 Alessandra Ramos6 Corrections: (The following items were deleted from the chart) 14:53 14:51 Chief complaint: db db
[2024-06-25 17:53] VITALS: TEMP 98.2
[2024-06-25 17:54] VITALS: O2SAT 100
[2024-06-25 17:56] VITALS: BP 109/54
--- NOTE | 2024-06-25 18:20 | RAD REPORT ---
EXAMINATION: ONE VIEW CHEST XR CLINICAL INDICATION: Female, 69 years old.,MALAISE TECHNIQUE: Frontal chest projection is submitted. Examination is limited by patient positioning and t echnique. COMPARISON: 08/25/2020 FINDINGS: The lungs are diffusely emphysematous but grossly clear. No pneumothorax or sizable effusion. The he art is normal in size. Mediastinal contours are unremarkable. IMPRESSION: No acute intrathoracic abnormalities.
[2024-06-25 18:36] LABS: Differential Total Cells Count 100; Lymphocytes 42 % (15-42); Segmented Neutrophils 52 % (40-80)
[2024-06-25 18:37] LABS: Anisocytosis 1+; Blood Morphology Comment NOTED (NOT SEEN); Monocytes 6 % (0-10); Platelet Estimate DECR; Poikilocytosis 1+
== END 2024-06-25 17:47 | disposition home or self-care (01) ==
LOC: ER 14:37
DX: I95.89 Other hypotension (principal); R53.1 Weakness; E11.9 Type 2 diabetes mellitus without complications; I10 Essential (primary) hypertension
CPT/HCPCS: 36415; 71045; 80048; 83690; 84484; 85025; 93005; 99285

== ENCOUNTER 2024-07-01 16:39 | Emergency (ER) | payer OTHER ==
[2024-07-01] MEDS ORDERED: FENTANYL CITR 100 MCG/2 ML ONE ×2 (17:16→19:49)
[2024-07-01 17:30] LABS: Absolute Eosinophils 0.1 K/uL (0-0.5); Absolute Lymphocytes (CBC) 0.5 K/uL (0.7-4.9); Absolute Monocytes 0.2 K/uL (0.1-1.3); Absolute Neutrophil 2.4 K/uL (1.8-8.0); Basophils % 0.9 % (0-1.3); Eosinophils % 2.3 % (0-4.4); Hemoglobin 12.7 g/dL (12.0-15.0); Lymphocytes % 15.7 % (15.3-44.8); MCH 33.3 pg (27.0-35.0); MCHC 35.2 g/dL (32.0-36.0); MCV 94.7 fL (80-100); MPV 7.9 fL (7.6-11.3); Monocytes % 7.5 % (3.3-12.3); Neutrophils % 73.6 % (41.7-73.7); Nucleated Red Blood Cells % 0.1 % (0-0); Platelets 43 thou/uL (152-406)
[2024-07-01 17:42] LABS: Anion Gap 12.4 mEq/L (5.0-15.0); Potassium 3.4 mEq/L (3.5-5.1)
--- NOTE | 2024-07-01 18:33 | ER ---
Nurse's Notes [facility] Name: Sindi Corey Age: 69 yrs Sex: Female : 1955 Arrival Date: 07/01/2024 Time: 16:39 Bed 4 Private MD: Diagnosis: Displaced intertrochanteric fracture of right femur Presentation: 07/01 17:00 Chief complaint: EMS states: MECHANICAL FALL AT HOME, R HIP PAIN AND DEFORMITY. bp Coronavirus screen: At this time, the client does not indicate any symptoms associated with coronavirus-19. Ebola Screen: No symptoms or risks identified at this time. Initial Sepsis Screen: Does the patient meet any 2 criteria? No. Patient's initial sepsis screen is negative. Does the patient have a suspected source of infection? No. Patient's initial sepsis screen is negative. Risk Assessment: Do you want to hurt yourself or someone else? Patient reports no desire to harm self or others. Onset of symptoms was July 01, 2024 at 16:30. Care prior to arrival: Medication(s) given: FENTANYL 100MCG, 4 ZOFRAN IV initiated. 20 GA, in the right antecubital area. 17:00 Method Of Arrival: EMS: [facility] bp 17:00 Acuity: ALONDRA 3 bp Triage Assessment: 17:02 General: Appears in no apparent distress. uncomfortable, Behavior is calm, cooperative, bp appropriate for age. Pain: Complains of pain in right hip. Historical: - Allergies: 17:02 Hydrocodone-Acetaminophen; bp - PMHx: 17:02 Diabetes - IDDM; Hypertension; Cirrhosis; bp - Immunization history:: Adult Immunizations up to date. - Infectious Disease History:: Denies. - Social history:: Smoking status: Patient denies any tobacco usage or history of. Screenin:20 [facility] ED Fall Risk Assessment (Adult) History of falling in the last 3 months, ld1 including since admission Yes- single mechanical fall (1 pt) Confusion or Disorientation No (0 pts) Intoxicated or Sedated No (0 pts) Impaired Gait Yes (1 pt) Mobility Assist Device Used No (0 pt) Altered Elimination Yes (1 pt) Score/Fall Risk Level 3 or more points = High Risk Oriented to surroundings, Hourly rounding (assess needs \T\ fall precautionary measures) done. Abuse screen: Denies threats or abuse. Denies injuries from another. Nutritional screening: No deficits noted. Tuberculosis screening: No symptoms or risk factors identified. Assessment: 17:20 General: Appears in no apparent distress. uncomfortable, Behavior is calm, cooperative, ld1 appropriate for age. Pain: Complains of pain in right femoral area, right inguinal area, right iliac crest and right hip Pain does not radiate. Pain currently is 8 out of 10 on a pain scale. Quality of pain is described as throbbing, Pain began suddenly, Is continuous. Neuro: Level of Consciousness is awake, alert, obeys commands, Oriented to person, place, time, situation. Cardiovascular: Capillary refill < 3 seconds Patient's skin is warm and dry. Respiratory: Airway is patent Respiratory effort is even, unlabored. GI: Abdomen is flat, non-distended. : No signs and/or symptoms were reported regarding the genitourinary system. EENT: No signs and/or symptoms were reported regarding the EENT system. Derm: No signs and/or symptoms reported regarding the dermatologic system. Musculoskeletal: No signs and/or symptoms reported regarding the musculoskeletal system. 17:45 Reassessment: Patient appears in no apparent distress at this time. No changes from ld1 previously documented assessment. Patient and/or family updated on plan of care and expected duration. Pain level reassessed. C/O pain to right hip. See [facility] for orders. Purewick applied to patient. 19:16 Reassessment: Patient and/or family updated on plan of care and expected duration. Pain bm8 level reassessed. Patient is alert, oriented x 3, equal unlabored respirations, skin warm/dry/pink. Pain: Complains of pain in right iliac crest and right inguinal area and right femoral area Pain currently is 10 out of 10 on a pain scale. 20:00 General: Report called to [facility] Yonatan, report given to RN. Shani . kd3 20:43 Reassessment: Patient appears in no apparent distress at this time. Patient and/or bm8 family updated on plan of care and expected duration. Pain level reassessed. Patient is alert, oriented x 3, equal unlabored respirations, skin warm/dry/pink. Pain: Pain currently is 7 out of 10 on a pain scale. Vital Signs: 17:00 BP 138 / 84; Pulse 86; Resp 16; Temp 98; Pulse Ox 100% ; bp 17:20 BP 137 / 73; Pulse 88; Resp 18; Pulse Ox 100% on R/A; Pain 9/10; ld1 19:16 BP 128 / 67; Pulse 76; Resp 18; Temp 98; Pulse Ox 96% ; Pain 10/10; bm8 20:43 BP 122 / 79; Pulse 77; Resp 19; Temp 98; Pulse Ox 98% ; Pain 7/10; bm8 17:20 Pain Scale: Adult ld1 19:16 Pain Scale: Adult bm8 20:43 Pain Scale: Adult bm8 Ragley Coma Score: 19:16 Eye Response: spontaneous(4). Motor Response: obeys commands(6). Verbal Response: bm8 oriented(5). Total: 15. 20:43 Eye Response: spontaneous(4). Motor Response: obeys commands(6). Verbal Response: bm8 oriented(5). Total: 15. ED Course: 09:31 Initiated transfer with Irina at [facility]. rv1 16:59 Patient arrived in ED. ld1 17:00 Benjamin An, DELVIS is Primary Nurse. bp 17:01 Triage completed. bp 17:02 Arm band placed on. bp 17:04 Jenelle Hicks FNP-C is PHCP. kb 17:04 Erik Arias MD is Attending Physician. kb 17:20 Patient has correct armband on for positive identification. Placed in gown. Bed in low ld1 position. Call light in reach. Side rails up X2. Pulse ox on. NIBP on. Door closed. Noise minimized. Warm blanket given. 17:20 No provider procedures requiring assistance completed. Maintain EMS IV. Dressing ld1 intact. Good blood return noted. Site clean \T\ dry. Gauge \T\ site: 20G RAC. 19:13 Hip Right 2 View XRAY In Process Unspecified. EDMS 19:13 Femur Right XRAY In Process Unspecified. EDMS 19:16 Provided Education on: need for transfer. bm8 19:16 Patient maintains SpO2 saturation greater than 95% on room air. bm8 19:38 Pt auto-accepted by Dr. Yadav to [facility] ER. rv1 21:13 Patient transferred, IV remains in place. bm8 Administered Medications: 17:20 Drug: fentaNYL (PF) IVP 25 mcg IVP once Route: IVP; Site: right antecubital; ld1 19:17 Follow up: Response: No adverse reaction bm8 19:54 Drug: fentaNYL (PF) IVP 25 mcg IVP once Route: IVP; Site: right antecubital; kd3 21:13 Follow up: Response: No adverse reaction bm8 Medication: 17:20 VIS not applicable for this client. ld1 Outcome: 18:32 ER care complete, transfer ordered by . kb 21:13 Transferred by ground EMS to [facility], Transfer form completed. bm8 X-rays sent w/ patient. 21:13 Condition: stable 21:13 Instructed on follow up and referral plans. the need for transfer, medication usage, Demonstrated understanding of instructions, follow-up care, medications, 21:14 Patient left the ED. bm8 Signatures: Dispatcher [employer] EDMS Jenelle Hicks, STORE ADMINISTRATOR-C STORE ADMINISTRATOR-Benjamin Puentes, RN RN bp Jenifer Alexandra RN RN ld1 Yecenia Flores, RN RN kd3 Ginger Hinojosa rv1 Easton García RN RN bm8
--- NOTE | 2024-07-01 18:33 | EDPHYS ---
Physician Documentation [facility] Name: Sindi Corey Age: 69 yrs Sex: Female : 1955 Arrival Date: 07/01/2024 Time: 16:39 Bed 4 Private MD: ED Physician Erik Arias HPI: 07/01 17:13 This 69 yrs old Female presents to ER via EMS with complaints of hip pain. 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 States she was unable to get off the floor afterwards. Denies hitting head, loc, any other pain. Historical: - Allergies: 17:02 Hydrocodone-Acetaminophen; bp - PMHx: 17:02 Diabetes - IDDM; Hypertension; Cirrhosis; bp - Immunization history:: Adult Immunizations up to date. - Infectious Disease History:: Denies. - Social history:: Smoking status: Patient denies any tobacco usage or history of. ROS: 17:11 Constitutional: As per HPI kb Exam: 17:12 Constitutional: This is a well developed, well nourished patient who is awake, alert, kb and in no acute distress. Head/Face: Normocephalic, atraumatic. ENT: Moist Mucous membranes Cardiovascular: Regular rate Respiratory: Respirations even and unlabored. No increased work of breathing. Talking in full sentences Abdomen/GI: Soft, non-tender. No distention Skin: Warm, dry with normal turgor. Normal color. Neuro: Awake and alert, GCS 15, oriented to person, place, time, and situation. 17:12 Musculoskeletal/extremity: Extremities: grossly normal except: noted in the right hip and lateral aspect of right thigh: decreased ROM, deformity, pain, swelling, tenderness, ROM: limited active range of motion due to pain, limited passive range of motion due to pain, Circulation is intact in all extremities. Sensation intact. Vital Signs: 17:00 BP 138 / 84; Pulse 86; Resp 16; Temp 98; Pulse Ox 100% ; bp 17:20 BP 137 / 73; Pulse 88; Resp 18; Pulse Ox 100% on R/A; Pain 9/10; ld1 19:16 BP 128 / 67; Pulse 76; Resp 18; Temp 98; Pulse Ox 96% ; Pain 10/10; bm8 20:43 BP 122 / 79; Pulse 77; Resp 19; Temp 98; Pulse Ox 98% ; Pain 7/10; bm8 17:20 Pain Scale: Adult ld1 19:16 Pain Scale: Adult bm8 20:43 Pain Scale: Adult bm8 Lori Coma Score: 19:16 Eye Response: spontaneous(4). Motor Response: obeys commands(6). Verbal Response: bm8 oriented(5). Total: 15. 20:43 Eye Response: spontaneous(4). Motor Response: obeys commands(6). Verbal Response: bm8 oriented(5). Total: 15. MDM: 17:04 Medical Screening Exam initiated kb 17:13 Data reviewed: vital signs, nurses notes. Historians other than the Patient: EMS: [facility]. 18:29 Differential diagnosis: contusion, fracture. Consideration of Admission/Observation kb Escalation of care including admission/observation considered. pt will be transferred for orthopedics/trauma. Counseling: I had a detailed discussion with the patient and/or guardian regarding the historical points, exam findings, and any diagnostic results supporting the discharge/admit diagnosis, radiology results, the need to transfer to another facility, [facility] does not immediately have the required specialist. 18:32 Independent interpretation of the following test(s) in the Emergency Department X-Ray: kb My interpretation is intertrochanteric fracture right femur. 19:40 Management of patient was discussed with the following: Dr Yadav accepts pt for kb transfer to [facility] without conference. 07/01 17:08 Order name: CBC with Diff; Complete Time: 21:13 kb 07/01 17:08 Order name: BMP; Complete Time: 17:46 kb 07/01 17:47 Order name: CBC Smear Scan; Complete Time: 21:13 EDMS 07/01 17:08 Order name: Hip Right 2 View XRAY; Complete Time: 19:30 kb 07/01 17:08 Order name: Femur Right XRAY; Complete Time: 19:31 kb 07/01 17:08 Order name: IV Start; Complete Time: 17:19 kb Administered Medications: 17:20 Drug: fentaNYL (PF) IVP 25 mcg IVP once Route: IVP; Site: right antecubital; ld1 19:17 Follow up: Response: No adverse reaction bm8 19:54 Drug: fentaNYL (PF) IVP 25 mcg IVP once Route: IVP; Site: right antecubital; kd3 21:13 Follow up: Response: No adverse reaction bm8 Disposition: 07/02 11:29 Co-signature as Attending Physician, Erik Arias MD I reviewed the patient's care rt provided by the Advanced Practice Provider and agree with the diagnosis and treatment plan. Disposition Summary: 07/01/24 18:32 Transfer Ordered Notes: Transfer Location: [facility] kb Reason: Higher level of care kb Condition: Stable kb Problem: new kb Symptoms: are unchanged kb Accepting Physician: Dr Yadav(07/01/24 21:14) bm8 Diagnosis - Right femoral neck fracture kb - Displaced fracture right greater trochanter kb - Displaced intertrochanteric fracture of right femur kb Forms: - Medication Reconciliation Form kb - SBAR form kb Signatures: Dispatcher [employer] EDMS Jenelle Hicks, PRIVATE DUTY RN-C PRIVATE DUTY RN-Ckb Benjamin An, RN RN bp Jenifer Alexandra RN RN ld1 Yecenia Flores RN RN kd3 Erik Arias MD MD rt Easton García, RN RN bm8 Corrections: (The following items were deleted from the chart) 07/01 17:08 17:08 Femur Right+RAD.RAD.BRZ ordered. EDMS EDMS 17:08 17:08 CBC+H.LAB.BRZ ordered. EDMS EDMS 17:08 17:08 BASIC METABOLIC PANEL+C.LAB.BRZ ordered. EDMS EDMS 18:33 18:32 Independent interpretation of the following test(s) in the Emergency Department kb X-Ray: My interpretation is femoral neck fracture, right. kb 18:34 18:32 Dr kb kb 18:34 18:34 Dr bolivar kb 19:31 18:32 Independent interpretation of the following test(s) in the Emergency Department kb X-Ray: My interpretation is right greater trochanter fracture. kb 19:31 18:34 Dr kb kb 19:39 19:31 Dr kb kb 21:14 19:39 Dr Yadav kb bm8
--- NOTE | 2024-07-01 19:29 | RAD REPORT ---
Exam:Hip Right 2 View HISTORY: Right hip pain FINDINGS: Intertrochanteric fracture right femur. Lesser trochanter is avulsed medially. The fracture extends t o the greater trochanter. Varus angulation is present at the fracture site. Main fracture fragments 0.7 cm. No dislocation
--- NOTE | 2024-07-01 19:30 | RAD REPORT ---
Exam:Femur Right CLINICAL HISTORY: Right leg pain. FINDINGS: Intertrochanteric fracture right femur. Lesser trochanter is avulsed medially. The fracture extends t o the greater trochanter. Varus angulation is present at the fracture site. Main fracture fragments 0.7 cm. True lateral view of the distal right femur not obtain limiting evaluation.
[2024-07-01 21:11] LABS: Blood Morphology Comment NOTED (NOT SEEN); Platelet Estimate ADEQ; White Blood Cell Scan OK (OK)
[2024-07-01 21:12] LABS: Anisocytosis 1+; Polychromasia 1+
[2024-07-01 21:50] VITALS: TEMP 98
[2024-07-01 21:56] VITALS: BP 122/79; O2SAT 98
== END 2024-07-01 21:14 | disposition short-term general hospital (02) ==
LOC: ER 16:39
DX: S72.141A Displaced intertrochanteric fracture of right femur, initial encounter for closed fracture (principal); S72.001A Fracture of unspecified part of neck of right femur, initial encounter for closed fracture; W01.0XXA Fall on same level from slipping, tripping and stumbling without subsequent striking against object, initial encounter
CPT/HCPCS: 85025; 80048; 36415; 73502; 73552; 96374; 99285; J3010 ×2

== ENCOUNTER 2024-09-24 21:57 | Emergency (ER) | payer OTHER ==
[2024-09-24] MEDS ORDERED: ONDANSETRON 4 MG/2 ML VIAL ONE (23:10)
[2024-09-24] MEDS ORDERED: MORPHINE 4 MG/ML SYR ONE (23:10)
[2024-09-24] MEDS ORDERED: NA CHLORIDE 0.9% 1,000 ML ONE (23:11)
[2024-09-24] MEDS ORDERED: FAMOTIDINE 20 MG/2 ML VIAL IV ONE (23:11)
[2024-09-24 23:27] LABS: Absolute Lymphocytes (CBC) 0.4 K/uL (0.7-4.9); Hematocrit 41.7 % (36.0-45.0); Hemoglobin 14.8 g/dL (12.0-15.0); MCH 34.0 pg (27.0-35.0); MCHC 35.4 g/dL (32.0-36.0); MCV 96.0 fL (80-100); MPV 7.6 fL (7.6-11.3); Nucleated RBC Absolute Count 0.0 (0-0); Nucleated Red Blood Cells % 0.0 % (0-0); RBC Red Blood Cell Count 4.34 M/uL (3.86-4.86); White Blood Count 6.50 thou/uL (4.3-10.9)
[2024-09-24 23:47] LABS: ALT/SGPT 115.0 U/L (13-56); AST/SGOT 55.0 U/L (15-37); Albumin 3.2 g/dL (3.4-5.0); Albumin/Globulin Ratio 0.9 (1.1-1.8); Alkaline Phosphatase 175.0 U/L (45-117); Anion Gap 10.6 mEq/L (5.0-15.0); BUN Blood Urea Nitrogen 11.0 mg/dL (7-18); Globulin 3.6 g/dL (2.3-3.5); Glucose Level 238.0 mg/dL (74-106); Lipase 43.0 U/L (13-75); Potassium 3.6 mEq/L (3.5-5.1)
[2024-09-25 00:27] LABS: Blood Morphology Comment NOT SEEN (NOT SEEN); Differential Total Cells Count 100; Segmented Neutrophils 65 % (40-80)
--- NOTE | 2024-09-25 02:46 | RAD REPORT ---
INDICATION: ABD PAIN COMPARISON: CT abdomen pelvis April 11, 2021 TECHNIQUE: Enhanced CT of the abdomen and pelvis performed per protocol. Oral contrast was not administered. Mul tiplanar reconstructions were provided. Dose reduction techniques were utilized for this exam including automated exposure control, adjustmen ts to mA and/or kV according to patient's size, and the use of iterative reconstruction techniques. FINDINGS: LOWER CHEST: Lung bases are clear. LIVER: Nodular hepatic contour compatible with cirrhosis. Diffuse hepatic steatosis. No focal lesions are seen. SPLEEN: Enlarged measuring up to 15.2 cm. PANCREAS: Unremarkable. ADRENALS: Unremarkable. KIDNEYS: Unremarkable. GALLBLADDER: Surgically absent. VESSELS: Scattered atherosclerotic plaque within the abdominal aorta and iliac vessels without aneury smal dilatation. Prominent recanalized umbilical vein. BOWEL: Circumferential wall thickening of the stomach and duodenum, as well as the ascending through descending colon. Colonic diverticulosis without evidence of diverticulitis. No bowel obstruction. APPENDIX: Normal. FLUID: Small volume abdominopelvic ascites. ADENOPATHY: No pathologic adenopathy. BLADDER: Unremarkable. PELVIS: Uterus and adnexa are unremarkable. BONES: No acute bony abnormality. Multilevel degenerative changes throughout the spine with multileve l disc bulges within the lumbar spine causing multilevel spinal canal and neural foraminal narrowing. Postsurgical changes of the proximal right femur. Decreased osseous mineralization. SOFT TISSUES: Unremarkable. IMPRESSION: 1. Cirrhosis with sequelae of portal hypertension including splenomegaly, small volume abdominopelv ic ascites and prominent recanalized umbilical vein. 2. Wall thickening of the stomach, duodenum and colon, possibly related to portal hypertension alth ough a nonspecific gastroenterocolitis is also a consideration. 3. Colonic diverticulosis without evidence of diverticulitis. Electronically signed by: Ziyad Lehman DO 09/25/2024 02:41 AM CDT NR Due to temporary technical issues with the [employer] reporting system, reports are being maria dolores d by the in-house radiologist without review as a courtesy to ensure prompt reporting the interpreting radiologist is fully responsible for the content of the report. Transcribed Date/Time: 09/25/2024 2:45 AM
--- NOTE | 2024-09-25 04:21 | EDPHYS ---
Physician Documentation [facility] Name: Sindi Corey Age: 69 yrs Sex: Female : 1955 Arrival Date: 09/24/2024 Time: 21:57 Bed 8 Private MD: ED Physician Adam Brown HPI: 09/25 00:18 This 69 yrs old Female presents to ER via Ambulatory with complaints of kb Abdominal Pain, Vomiting. 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 Denies fever, urinary symptoms. . Historical: - Allergies: 09/24 22:07 Hydrocodone-Acetaminophen; dd2 - PMHx: 22:07 Cirrhosis; Diabetes - IDDM; Hypertension; dd2 - PSHx: 22:07 Cholecystectomy; dd2 - Immunization history:: Adult Immunizations up to date. - Infectious Disease History:: Denies. - Social history:: Smoking status: Patient denies any tobacco usage or history of. ROS: 09/25 00:19 Constitutional: As per HPI kb Exam: 00:19 Constitutional: This is a well developed, well nourished patient who is awake, alert, kb and in no acute distress. Head/Face: Normocephalic, atraumatic. ENT: Moist Mucous membranes Cardiovascular: Regular rate Respiratory: Respirations even and unlabored. No increased work of breathing. Talking in full sentences Skin: Warm, dry with normal turgor. Normal color. MS/ Extremity: Pulses equal, no cyanosis. Neurovascular intact. Full, normal range of motion. Neuro: Awake and alert, GCS 15, oriented to person, place, time, and situation. 00:19 Abdomen/GI: Inspection: abdomen appears normal, Bowel sounds: normal, Palpation: soft, in all quadrants, moderate abdominal tenderness, in the right upper quadrant and right lower quadrant, Vital Signs: 09/24 22:04 BP 152 / 60; Pulse 71; Resp 16; Temp 98.4; Pulse Ox 99% on R/A; Weight 71.21 kg; Pain dd2 10/10; 23:27 BP 145 / 59; Pulse 69; Resp 17; Temp 98.4; Pulse Ox 95% ; Pain 10/10; bm8 09/25 00:18 BP 146 / 55; Pulse 67; Resp 18; Temp 98.4; Pulse Ox 99% ; Pain 0/10; bm8 01:20 BP 154 / 65; Pulse 68; Resp 20; Pulse Ox 95% on R/A; jj7 01:37 BP 160 / 66; Pulse 67; Resp 18; Temp 98.4; Pulse Ox 94% ; Pain 0/10; bm8 02:30 BP 157 / 65; Pulse 62; Resp 20; Pulse Ox 98% ; bm8 03:30 BP 119 / 52; Pulse 60; Resp 17; Pulse Ox 98% ; bm8 03:52 BP 119 / 52; Pulse 65; Resp 18; Temp 98.4; Pulse Ox 95% ; Pain 0/10; bm8 04:35 BP 107 / 45; Pulse 61; Resp 20; Temp 97.8; Pulse Ox 96% ; Pain 0/10; jj7 09/24 22:04 Pain Scale: Adult dd2 23:27 Pain Scale: Adult bm8 09/25 00:18 Pain Scale: Adult bm8 01:37 Pain Scale: Adult bm8 03:52 Pain Scale: Adult bm8 04:35 Pain Scale: Adult jj7 Medina Coma Score: 09/24 23:27 Eye Response: spontaneous(4). Motor Response: obeys commands(6). Verbal Response: bm8 oriented(5). Total: 15. 09/25 00:18 Eye Response: spontaneous(4). Motor Response: obeys commands(6). Verbal Response: bm8 oriented(5). Total: 15. 01:37 Eye Response: spontaneous(4). Motor Response: obeys commands(6). Verbal Response: bm8 oriented(5). Total: 15. 02:57 Eye Response: spontaneous(4). Motor Response: obeys commands(6). Verbal Response: bm8 oriented(5). Total: 15. 03:52 Eye Response: spontaneous(4). Motor Response: obeys commands(6). Verbal Response: bm8 oriented(5). Total: 15. MDM: 09/24 22:04 Medical Screening Exam initiated 09/25 00:19 Data reviewed: vital signs, nurses notes. Historians other than the Patient: osmel Daughter/Son: daughter. 04:19 ED course: INDICATION: ABD PAIN COMPARISON: CT abdomen pelvis April 11, 2021 TECHNIQUE: sp4 Enhanced CT of the abdomen and pelvis performed per protocol. Oral contrast was not administered. Multiplanar reconstructions were provided. Dose reduction techniques were utilized for this exam including automated exposure control, adjustments to mA and/or kV according to patient's size, and the use of iterative reconstruction techniques. FINDINGS: LOWER CHEST: Lung bases are clear. LIVER: Nodular hepatic contour compatible with cirrhosis. Diffuse hepatic steatosis. No focal lesions are seen. SPLEEN: Enlarged measuring up to 15.2 cm. PANCREAS: Unremarkable. ADRENALS: Unremarkable. KIDNEYS: Unremarkable. GALLBLADDER: Surgically absent. VESSELS: Scattered atherosclerotic plaque within the abdominal aorta and iliac vessels without aneurysmal dilatation. Prominent recanalized umbilical vein. BOWEL: Circumferential wall thickening of the stomach and duodenum, as well as the ascending through descending colon. Colonic diverticulosis without evidence of diverticulitis. No bowel obstruction. APPENDIX: Normal. FLUID: Small volume abdominopelvic ascites. ADENOPATHY: No pathologic adenopathy. BLADDER: Unremarkable. PELVIS: Uterus and adnexa are unremarkable. BONES: No acute bony abnormality. Multilevel degenerative changes throughout the spine with multilevel disc bulges within the lumbar spine causing multilevel spinal canal and neural foraminal narrowing. Postsurgical changes of the proximal right femur. Decreased osseous mineralization. SOFT TISSUES: Unremarkable. IMPRESSION: 1. Cirrhosis with sequelae of portal hypertension including splenomegaly, small volume abdominopelvic ascites and prominent recanalized umbilical vein. 2. Wall thickening of the stomach, duodenum and colon, possibly related to portal hypertension although a nonspecific gastroenterocolitis is also a consideration. 3. Colonic diverticulosis without evidence of diverticulitis. Electronically signed by: Ziyad Lehman DO 09/25/2024 02:41 . 09/24 22:07 Order name: CBC with Diff; Complete Time: 00:29 kb 09/24 22:07 Order name: CMP; Complete Time: 23:47 kb 09/24 22:07 Order name: Lipase; Complete Time: 23:47 kb 09/24 23:36 Order name: Manual Differential; Complete Time: 00:29 EDMS 09/24 22:07 Order name: CT Abd/Pelvis - IV Contrast Only kb 09/24 22:07 Order name: IV Saline Lock; Complete Time: 23:22 kb 09/24 22:07 Order name: Labs collected and sent; Complete Time: 23:22 kb Administered Medications: 09/24 23:22 Drug: Famotidine IVP 20 mg IVP once; dilute with 10 mL 0.9% NaCl; give over 2 minutes bm8 Route: IVP; Site: right antecubital; 09/25 00:19 Follow up: Response: No adverse reaction [facility] 09/24 23:22 Drug: Ondansetron IVP 4 mg IVP once; over 2 minutes Route: IVP; Site: right antecubital;8 09/25 00:20 Follow up: Response: No adverse reaction [facility] 09/24 23:22 Drug: morphine IVP or IV 4 mg IVP once over 4 mins Route: IVP; Infused Over: 4 mins; bm8 Site: right antecubital; 09/25 00:20 Follow up: Response: No adverse reaction [facility] 09/24 23:22 Drug: NS 0.9% IV 1000 ml IV at 1 bolus Per protocol; to be given as a bolus over 60 bm8 minutes Route: IV; Rate: 1 bolus; Site: right antecubital; 09/25 00:19 Follow up: Response: No adverse reaction; IV Status: Completed infusion 8 04:33 Drug: Dicyclomine PO 20 mg PO once Route: PO; jj7 04:39 Follow up: Response: Marked relief of symptoms; Pain is decreased jj7 04:34 Drug: MetoCLOPramide PO 10 mg PO once Route: PO; jj7 04:39 Follow up: Response: No adverse reaction; Marked relief of symptoms jj7 04:34 Drug: traMADol PO 100 mg PO once Route: PO; jj7 04:39 Follow up: Response: No adverse reaction; Marked relief of symptoms jj7 Disposition: 04:19 Co-signature as Attending Physician, Adam Brown MD I agree with the assessment sp4 and plan of care. I reviewed the patient's care provided by Advanced Practice Provider \T\ agree w/ the diagnosis \T\ care plan. I personally saw the pt \T\ performed a substantive portion of the visit, incldng all aspects of the (History/Exam/Medical Decision Making). Disposition Summary: 09/25/24 04:21 Discharge Ordered Notes: We advise clear liquid diet for 24 hours Location: Home sp4 Problem: new sp4 Symptoms: have improved sp4 Condition: Stable sp4 Diagnosis - Acute gastritis without bleeding sp4 - History of liver cirrhosis, elevated liver enzymes. sp4 Followup: sp4 - With: Private Physician - When: 5 - 6 days - Reason: Recheck today's complaints Discharge Instructions: - Discharge Summary Sheet sp4 - Gastritis, Adult, [id number] sp4 - Clear Liquid Diet, Adult, [id number] sp4 Forms: - Patient Portal Instructions sp4 Prescriptions: - Reglan 10 mg Oral tablet - take 1 tablet ORAL route every 6 hours PRN nausea; 30 tablet; Refills: 0, sp4 Product Selection Permitted - Tramadol 50 mg Oral tablet - take 1 tablet ORAL route every 8 hours as needed; 20 tablet; Refills: 0, sp4 Product Selection Permitted - dicyclomine 20 mg Oral tablet - take 1 tablet ORAL route 4 times per day PRN abdominal pain; 30 tablet; sp4 Refills: 0, Product Selection Permitted Signatures: Dispatcher [employer] Jenelle Lamar, SPEECH THERAPIST EARLY INTERVENTION-C SPEECH THERAPIST EARLY INTERVENTION-Corie Whiting, RN RN jj7 Adam Brown MD MD sp4 Easton García, DELVIS RN bm8 PAOLA RUSSO RN RN dd2
--- NOTE | 2024-09-25 04:21 | ER ---
Nurse's Notes [facility] Name: Sindi Corey Age: 69 yrs Sex: Female : 1955 Arrival Date: 09/24/2024 Time: 21:57 Bed 8 Private MD: Diagnosis: Acute gastritis without bleeding;History of liver cirrhosis, elevated liver enzymes. Presentation: 09/24 22:04 Chief complaint: Patient states: STOMACH PAIN STARTED AT 2:30 PM AND VOMITING THAT dd2 STARTED ABOUT 30 MINS AGO. PT REPORTS CIRRHOSIS. Coronavirus screen: At this time, the client does not indicate any symptoms associated with coronavirus-19. Ebola Screen: No symptoms or risks identified at this time. Initial Sepsis Screen: Does the patient meet any 2 criteria? No. Patient's initial sepsis screen is negative. Does the patient have a suspected source of infection? No. Patient's initial sepsis screen is negative. Risk Assessment: Do you want to hurt yourself or someone else? Patient reports no desire to harm self or others. Onset of symptoms was September 24, 2024 at 14:30. 22:04 Method Of Arrival: Ambulatory dd2 22:04 Acuity: ALONDRA 3 dd2 Triage Assessment: 22:07 General: Appears in no apparent distress. uncomfortable, Behavior is calm, cooperative, dd2 appropriate for age. Pain: Complains of pain in epigastric area, right upper quadrant and right lower quadrant Pain currently is 10 out of 10 on a pain scale. GI: Abd is soft X 4 quads Abdomen is tender to palpation in epigastric area, right upper quadrant and right lower quadrant Reports epigastric pain, nausea, vomiting. Historical: - Allergies: 22:07 Hydrocodone-Acetaminophen; dd2 - PMHx: 22:07 Cirrhosis; Diabetes - IDDM; Hypertension; dd2 - PSHx: 22:07 Cholecystectomy; dd2 - Immunization history:: Adult Immunizations up to date. - Infectious Disease History:: Denies. - Social history:: Smoking status: Patient denies any tobacco usage or history of. Screenin:27 [facility] ED Fall Risk Assessment (Adult) History of falling in the last 3 months, bm8 including since admission No falls in past 3 months (0 pts) Confusion or Disorientation No (0 pts) Intoxicated or Sedated No (0 pts) Impaired Gait No (0 pts) Mobility Assist Device Used No (0 pt) Altered Elimination No (0 pt) Score/Fall Risk Level 0 - 2 = Low Risk Oriented to surroundings, Maintained a safe environment, Educated pt \T\ family on fall prevention, incl call for assistance when getting out of bed, Assessed \T\ reinforced patient's understanding of fall precautions, Hourly rounding (assess needs \T\ fall precautionary measures) done, Used ambulatory aids as needed (educated on \T\ assisted with), Used gait belt as appropriate. Abuse screen: Denies threats or abuse. Nutritional screening: No deficits noted. Tuberculosis screening: No symptoms or risk factors identified. Assessment: 23:27 General: Appears distressed, uncomfortable, Behavior is calm, cooperative, appropriate bm8 for age. Pain: Complains of pain in epigastric area, right upper quadrant and left upper quadrant Pain currently is 10 out of 10 on a pain scale. Neuro: No deficits noted. Level of Consciousness is awake, alert, obeys commands, Oriented to person, place, time, situation, Appropriate for age. Cardiovascular: Denies chest pain, Capillary refill < 3 seconds in bilateral fingers Patient's skin is warm and dry. Respiratory: Airway is patent Respiratory effort is even, unlabored, Respiratory pattern is regular, symmetrical, Breath sounds are clear bilaterally. GI: Abdomen is flat, obese, Bowel sounds present X 4 quads. Reports upper abdominal pain, nausea, Pain is 10 out of 10 on a pain scale. : No signs and/or symptoms were reported regarding the genitourinary system. EENT: No signs and/or symptoms were reported regarding the EENT system. Derm: No signs and/or symptoms reported regarding the dermatologic system. Musculoskeletal: No signs and/or symptoms reported regarding the musculoskeletal system. 09/25 00:18 Reassessment: Patient appears in no apparent distress at this time. Patient and/or bm8 family updated on plan of care and expected duration. Pain level reassessed. Patient is alert, oriented x 3, equal unlabored respirations, skin warm/dry/pink. Patient denies pain at this time. Patient states feeling better. Patient states symptoms have improved. 01:37 Reassessment: Patient appears in no apparent distress at this time. No changes from bm8 previously documented assessment. Patient and/or family updated on plan of care and expected duration. Pain level reassessed. Patient is alert, oriented x 3, equal unlabored respirations, skin warm/dry/pink. Patient denies pain at this time. Patient states feeling better. Patient states symptoms have improved. 02:57 Reassessment: Patient appears in no apparent distress at this time. No changes from bm8 previously documented assessment. Patient and/or family updated on plan of care and expected duration. Pain level reassessed. Patient is alert, oriented x 3, equal unlabored respirations, skin warm/dry/pink. Patient denies pain at this time. Patient states feeling better. Patient states symptoms have improved. 03:52 Reassessment: Patient appears in no apparent distress at this time. Patient and/or bm8 family updated on plan of care and expected duration. Pain level reassessed. Patient is alert, oriented x 3, equal unlabored respirations, skin warm/dry/pink. Patient denies pain at this time. Patient states feeling better. Patient states symptoms have improved. Vital Signs: 09/24 22:04 BP 152 / 60; Pulse 71; Resp 16; Temp 98.4; Pulse Ox 99% on R/A; Weight 71.21 kg; Pain dd2 11/15; 23:27 BP 145 / 59; Pulse 69; Resp 17; Temp 98.4; Pulse Ox 95% ; Pain 10/10; bm8 09/25 00:18 BP 146 / 55; Pulse 67; Resp 18; Temp 98.4; Pulse Ox 99% ; Pain 0/10; bm8 01:20 BP 154 / 65; Pulse 68; Resp 20; Pulse Ox 95% on R/A; 7 01:37 BP 160 / 66; Pulse 67; Resp 18; Temp 98.4; Pulse Ox 94% ; Pain 0/10; bm8 02:30 BP 157 / 65; Pulse 62; Resp 20; Pulse Ox 98% ; bm8 03:30 BP 119 / 52; Pulse 60; Resp 17; Pulse Ox 98% ; bm8 03:52 BP 119 / 52; Pulse 65; Resp 18; Temp 98.4; Pulse Ox 95% ; Pain 0/10; bm8 04:35 BP 107 / 45; Pulse 61; Resp 20; Temp 97.8; Pulse Ox 96% ; Pain 0/10; jj7 09/24 22:04 Pain Scale: Adult dd2 23:27 Pain Scale: Adult bm8 08/20 00:18 Pain Scale: Adult bm8 01:37 Pain Scale: Adult bm8 03:52 Pain Scale: Adult bm8 04:35 Pain Scale: Adult jj7 Lori Coma Score: 09/24 23:27 Eye Response: spontaneous(4). Motor Response: obeys commands(6). Verbal Response: bm8 oriented(5). Total: 15. 09/25 00:18 Eye Response: spontaneous(4). Motor Response: obeys commands(6). Verbal Response: bm8 oriented(5). Total: 15. 01:37 Eye Response: spontaneous(4). Motor Response: obeys commands(6). Verbal Response: bm8 oriented(5). Total: 15. 02:57 Eye Response: spontaneous(4). Motor Response: obeys commands(6). Verbal Response: bm8 oriented(5). Total: 15. 03:52 Eye Response: spontaneous(4). Motor Response: obeys commands(6). Verbal Response: bm8 oriented(5). Total: 15. ED Course: 09/24 21:59 Patient arrived in ED. im 22:03 Jenelle Hicks FNP-C is PHCP. kb 22:03 Adam Brown MD is Attending Physician. kb 22:07 Triage completed. dd2 22:07 Arm band placed on right wrist. dd2 23:27 Easton García, RN is Primary Nurse. bm8 23:27 Patient has correct armband on for positive identification. Placed in gown. Bed in low bm8 position. Call light in reach. Side rails up X 1. Client placed on continuous cardiac and pulse oximetry monitoring. NIBP monitoring applied. Pulse ox on. NIBP on. Door closed. Noise minimized. Warm blanket given. Pillow given. Verbal reassurance given. Head of bed elevated. 23:27 No provider procedures requiring assistance completed. Initial lab(s) drawn, by ED bm8 staff, sent to lab. Inserted saline lock: 20 gauge in right antecubital area, using aseptic technique. Blood collected. Flushed with 10 mL NS. Patient maintains SpO2 saturation greater than 95% on room air. 09/25 00:48 CT Abd/Pelvis - IV Contrast Only In Process Unspecified. EDMS 04:35 Provided Education on: discharge. jj7 04:35 IV discontinued, intact, bleeding controlled, No redness/swelling at site. Pressure jj7 dressing applied. Administered Medications: 09/24 23:22 Drug: Famotidine IVP 20 mg IVP once; dilute with 10 mL 0.9% NaCl; give over 2 minutes bm8 Route: IVP; Site: right antecubital; 09/25 00:19 Follow up: Response: No adverse reaction bm8 09/24 23:22 Drug: Ondansetron IVP 4 mg IVP once; over 2 minutes Route: IVP; Site: right antecubital;bm8 09/25 00:20 Follow up: Response: No adverse reaction 8 09/24 23:22 Drug: morphine IVP or IV 4 mg IVP once over 4 mins Route: IVP; Infused Over: 4 mins; bm8 Site: right antecubital; 09/25 00:20 Follow up: Response: No adverse reaction 8 09/24 23:22 Drug: NS 0.9% IV 1000 ml IV at 1 bolus Per protocol; to be given as a bolus over 60 bm8 minutes Route: IV; Rate: 1 bolus; Site: right antecubital; 09/25 00:19 Follow up: Response: No adverse reaction; IV Status: Completed infusion bm8 04:33 Drug: Dicyclomine PO 20 mg PO once Route: PO; jj7 04:39 Follow up: Response: Marked relief of symptoms; Pain is decreased jj7 04:34 Drug: MetoCLOPramide PO 10 mg PO once Route: PO; jj7 04:39 Follow up: Response: No adverse reaction; Marked relief of symptoms jj7 04:34 Drug: traMADol PO 100 mg PO once Route: PO; jj7 04:39 Follow up: Response: No adverse reaction; Marked relief of symptoms jj7 Medication: 09/24 23:27 VIS not applicable for this client. bm8 Outcome: 09/25 04:21 Discharge ordered by MD. alcantar 04:35 Discharged to home via wheelchair, with family, jj7 04:35 Condition: improved 04:35 Discharge instructions given to patient, family, Instructed on discharge instructions, follow up and referral plans. medication usage, Demonstrated understanding of instructions, follow-up care, medications, Prescriptions given X 3, 04:39 Patient left the ED. jj7 Signatures: Dispatcher [employer] EDMS Jenelle Hicks, RESIN COATER-C RESIN COATER-Corie Whiting RN RN jj7 Adam Brown MD MD sp4 Carolian Jordan Brad, RN RN bm8 PAOLA RUSSO RN RN dd2
[2024-09-25] MEDS ORDERED: DICYCLOMINE HCL 10 MG CAP ONE (04:24)
[2024-09-25] MEDS ORDERED: TRAMADOL HCL 50 MG TAB ONE (04:26)
[2024-09-25 09:17] VITALS: BP 107/45; TEMP 97.8; O2SAT 96
== END 2024-09-25 04:39 | disposition home or self-care (01) ==
LOC: ER 21:57
DX: K29.00 Acute gastritis without bleeding (principal); R74.01 Elevation of levels of liver transaminase levels; Z87.19 Personal history of other diseases of the digestive system
CPT/HCPCS: 85025; 36415; 83690; 80053; 74177; Q9967; J2405; J7030

== ENCOUNTER 2024-11-06 19:06 | Emergency (ER) | payer OTHER ==
[2024-11-06] MEDS ORDERED: ACETAMINOPHEN 500 MG TAB ONE (19:51)
[2024-11-06] MEDS ORDERED: PIPERACIL/TAZO 4.5 GM VIAL IV ONE (19:51)
[2024-11-06] MEDS ORDERED: NA CHLORIDE 0.9% 500 ML ONE (19:51)
[2024-11-06] MEDS ORDERED: NA CHLORIDE 0.9% 100 ML ONE (19:52)
[2024-11-06 19:55] LABS: Absolute Lymphocytes (CBC) 0.2 K/uL (0.7-4.9); Hematocrit 40.0 % (36.0-45.0); Hemoglobin 14.0 g/dL (12.0-15.0); MCH 34.9 pg (27.0-35.0); MCHC 35.0 g/dL (32.0-36.0); MCV 99.7 fL (80-100); MPV 7.7 fL (7.6-11.3); Nucleated RBC Absolute Count 0.0 (0-0); Nucleated Red Blood Cells % 0.3 % (0-0); RBC Red Blood Cell Count 4.01 M/uL (3.86-4.86); White Blood Count 3.60 thou/uL (4.3-10.9)
[2024-11-06 20:05] LABS: PT Prothrombin Time 13.5 SECONDS (10-13.0); PTT, Activated Partial Thromb 29.7 SECONDS (27.2-37.4); Protime INR 1.2
[2024-11-06 20:20] LABS: ALT/SGPT 69.0 U/L (13-56); AST/SGOT 59.0 U/L (15-37); Albumin 3.0 g/dL (3.4-5.0); Albumin/Globulin Ratio 0.9 (1.1-1.8); Alkaline Phosphatase 157.0 U/L (45-117); Anion Gap 10.7 mEq/L (5.0-15.0); BUN Blood Urea Nitrogen 16.0 mg/dL (7-18); Globulin 3.5 g/dL (2.3-3.5); Glucose Level 384.0 mg/dL (74-106); NT PRO-BNP 133.0 pg/mL (<125); Potassium 3.7 mEq/L (3.5-5.1)
[2024-11-06 20:22] LABS: Sqamous Epithelial <5 /HPF (None Seen); Urine Crystals Unidentified Few /HPF (None Seen); Urine Culture Reflex Order REFLEXED; Urine Microscopic Reflex YN ORDER UMIC; Urine WBC Clump Rare /HPF (None Seen)
--- NOTE | 2024-11-06 20:46 | RAD REPORT ---
EXAMINATION: ONE VIEW CHEST XR CLINICAL INDICATION: Female, 69 years old.,sepsis TECHNIQUE: Frontal chest projection is submitted. Examination is limited by patient positioning and t echnique. COMPARISON: 06/25/2024 FINDINGS: The lungs are well inflated and clear. No pneumothorax or sizable effusion. The heart is normal in s ize. Mediastinal contours are unremarkable. IMPRESSION: No acute intrathoracic abnormalities.
[2024-11-06 21:24] LABS: Blood Morphology Comment NOTED (NOT SEEN); Polychromasia SLIGHT; White Blood Cell Scan OK (OK)
--- NOTE | 2024-11-06 23:42 | EDPHYS ---
Physician Documentation [facility] Name: Sindi Corey Age: 69 yrs Sex: Female : 1955 Arrival Date: 11/06/2024 Time: 19:06 Bed 17 Private MD: ED Physician Casper Polanco HPI: 11/07 02:22 This 69 yrs old Female presents to ER via EMS with complaints of High Blood tt7 Sugar. 02:22 Patient's been having 3 days of generalized weakness, increased somnolence, family tt7 reports significant weight loss after being started on spironolactone 100 mg twice daily, they report that her edema has significantly improved but she has been increasingly weak, they report fever. The patient was hospitalized approximately 1 week ago and had double-J ureteral stent placed in the right ureter, she also has a history of cirrhosis and diabetes, this urologic procedure was performed at [facility], that is also where she follows up with her liver team. Historical: - Allergies: 11/06 19:24 Hydrocodone-Acetaminophen; vc1 - Home Meds: 19:24 Lactulose Oral 15 mL [Active]; Xifaxan 550 mg oral tablet 2 times per day [Active]; vc1 omeprazole 40 mg Oral capsule,delayed release (e.c.) daily [Active]; sucralfate 1 gram Oral tablet daily [Active]; monjaro 10 mg/0.5 ml [Active]; treseba 40 units am/40 units pm [Active]; metoprolol succinate 25 mg oral Tablet, Extended Release 24 hr [Active]; losartan 50 mg oral tablet daily [Active]; atorvastatin 10 mg oral tablet every day at bedtime [Active]; spironolactone 100 mg Oral tablet twice a day [Active]; bumetanide 1 mg Oral tablet 2 times per day [Active]; calcitriol 0.5 mcg oral capsule daily [Active]; fluoxetine 10 mg Oral tablet [Active]; solifenacin 10 mg oral tablet daily [Active]; tamsulosin 0.4 mg oral capsule with dinner [Active]; tramadol 50 mg Oral tablet as needed [Active]; - PMHx: 19:24 Cirrhosis; Diabetes - IDDM; Hypertension; vc1 - PSHx: 19:24 Cholecystectomy; vc1 - Immunization history:: Adult Immunizations up to date. - Infectious Disease History:: Denies. - Social history:: Smoking status: Patient denies any tobacco usage or history of. ROS: 11/07 02:32 Constitutional: positive for fever. Cardiovascular: negative for chest pain. tt7 Respiratory: negative for shortness of breath. Abdomen/GI: negative for abdominal pain, nausea, vomiting, diarrhea. MS/Extremity: negative for injury and deformity. Skin: negative for rash. Neuro: negative for focal weakness. Exam: 02:53 Constitutional: vital signs reviewed, ill appearing. Head/Face: normocephalic, tt7 atraumatic. Eyes: no conjunctival injection, anicteric sclerae, PERRL. ENT: mucus membranes moist. Neck: trachea midline, no JVD, no meningismus. Chest/axilla: normal chest wall appearance and motion, nontender, no crepitus. Cardiovascular: regular rate and rhythm, no murmurs, no rubs, no lower extremity edema. Respiratory: normal respiratory effort, no accessory muscle use, lungs CTAB. Abdomen/GI: soft, nondistended, nontender, no guarding or rebound, negative Li's sign, no McBurney point tenderness. Back: normal ROM. Skin: warm, dry, intact, normal turgor, normal color, no rash. MS/ Extremity: normal ROM of extremities, no gross deformities. Neuro: alert and oriented with appropriate mental status but quite somnolent, normal speech, follows commands, no focal neurologic deficits. Vital Signs: 11/06 19:07 BP 165 / 58; Pulse 108; Resp 32; Temp 100.8; Pulse Ox 95% ; Weight 68.04 kg; Height 5 vc1 ft. 2 in. ; 20:12 BP 152 / 67; Pulse 101; Resp 18; Pulse Ox 96% ; cp4 21:16 BP 96 / 41; Pulse 75; Resp 20; Pulse Ox 96% ; cp4 22:21 BP 97 / 52; Pulse 82; Resp 22; Pulse Ox 97% ; cp4 23:45 BP 102 / 46; Pulse 78; Resp 22; Pulse Ox 96% ; cp4 23:48 Temp 98.9; cp4 11/07 00:31 BP 105 / 50; Pulse 79; Resp 22; Pulse Ox 97% ; cp4 01:30 BP 114 / 51; Pulse 86; Resp 18; Pulse Ox 96% ; cp4 02:30 BP 119 / 51; Pulse 84; Resp 18; Pulse Ox 97% ; cp4 03:30 BP 129 / 61; Pulse 87; Resp 18; Pulse Ox 97% ; cp4 11/06 19:07 Body Mass Index 27.44 (68.04 kg, 157.48 cm) vc1 MDM: 11/06 19:17 Medical Screening Exam initiated tt7 11/07 02:34 Differential diagnosis: Sepsis, postsurgical infection, ureteral stent obstruction, tt7 pyelonephritis, acute liver failure, anemia, diabetic ketoacidosis, hepatic encephalopathy. Data reviewed: vital signs, nurses notes, lab test result(s), radiologic studies. Historians other than the Patient: Spouse/Significant Other: . Daughter/Son: . Care significantly affected by the following chronic conditions: Diabetes, Liver Disease. Counseling: I had a detailed discussion with the patient and/or guardian regarding the historical points, exam findings, and any diagnostic results supporting the discharge/admit diagnosis, lab results, radiology results, the need to transfer to another facility. ED course: 69-year-old female with weakness and fever after urologic procedure about a week ago, patient mildly hypotensive which may be patient's baseline due to cirrhosis, otherwise stable vital signs, clinically she appears somnolent and weak, standard sepsis workup initiated along with ammonia level and CT imaging of the abdomen/pelvis to assess for evidence of ureteral/renal infection given the recent urologic procedure. I did not order full 30 mL/kilogram sepsis IV fluid bolus due to patient's history of cirrhosis and concern for fluid overload, 500 mL bolus of normal saline ordered instead. Empiric Zosyn administered prior to blood cultures being obtained. 02:42 ED course: Workup shows leukopenia with white count of 3.6, thrombocytopenia of 51,000 tt7 which is likely chronic due to cirrhosis, elevated glucose of 384, liver function test mildly elevated, bilirubin elevated at 3.8, likely chronic, lactate elevated at 3.5, ammonia mildly elevated at 82, urinalysis shows significant pyuria with some blood and leukocyte esterase, no evidence of contamination and less than 20 bacteria seen, CT imaging demonstrates findings of perinephric fluid and stranding concerning for infection, there also appears to potentially be malposition of the ureteral stent, patient appropriately covered with Zosyn, will proceed with transfer to [facility] for continuity of care with urology and the patient's liver team, I performed a sepsis reassessment and patient's volume status/tissue perfusion is adequate, no additional fluids ordered at this time. I spoke with urology Chief resident on-call for Dr. Dejesus who will consult on the case. I spoke with hospitalist Dr. Richmond at [facility] who accepts patient for IMU admission. 11/06 19:29 Order name: BNP; Complete Time: 21:22 tt7 11/06 19:29 Order name: Blood Culture Adult (2) tt7 11/06 19:29 Order name: CBC with Diff; Complete Time: 21:36 tt7 11/06 19:29 Order name: CMP; Complete Time: 21:22 tt7 11/06 19:29 Order name: Lactate w/ 2H reflex if indic.; Complete Time: 21:22 tt7 11/06 19:29 Order name: Protime (+inr); Complete Time: 21:22 tt7 11/06 19:29 Order name: Ptt, Activated; Complete Time: 21:22 tt7 11/06 19:29 Order name: AMMONIA; Complete Time: 21:22 tt7 11/06 19:29 Order name: UA Rfx Tony Cult if indicated; Complete Time: 21:22 tt7 11/06 20:07 Order name: Glucose, Ancillary Testing; Complete Time: 21:22 EDMS 11/06 20:27 Order name: Ghost Lactate-NO COLLECT Timer; Complete Time: 23:23 EDMS 11/06 20:28 Order name: Urine Culture EDMS 11/06 21:24 Order name: CBC Smear Scan EDMS 11/06 23:47 Order name: Lactate Sepsis 2 HR Follow-up; Complete Time: 00:52 EDMS 11/06 19:29 Order name: Chest Single View XRAY; Complete Time: 21:22 tt7 11/06 21:24 Order name: CT Abd/Pelvis - IV Contrast Only; Complete Time: 00:52 tt7 11/06 19:29 Order name: Accucheck; Complete Time: 19:48 tt7 11/06 19:29 Order name: Cardiac monitoring; Complete Time: 19:43 tt7 11/06 19:29 Order name: IV Saline Lock - Large Bore; Complete Time: 19:43 tt7 11/06 19:29 Order name: Labs collected and sent; Complete Time: 19:44 tt7 11/06 19:29 Order name: O2 Per Protocol; Complete Time: 19:44 tt7 11/06 19:29 Order name: O2 Sat Monitoring; Complete Time: 19:44 tt7 11/06 19:29 Order name: Vital Signs; Complete Time: 19:44 tt7 Administered Medications: 11/06 20:08 Drug: NS 0.9% IV 500 ml IV at bolus once; to be given as a bolus over 30 minutes Route: cp4 IV; Rate: bolus; Site: right hand; 20:52 Follow up: IV Status: Completed infusion cp4 20:08 Drug: Piperacillin-Tazobactam IVPB 4.5 grams IVPB once over 60 mins; (mix in 100 mL NS) cp4 Route: IVPB; Infused Over: 60 mins; Site: right hand; 20:52 Follow up: Response: No adverse reaction; IV Status: Completed infusion cp4 20:09 Drug: Acetaminophen PO 1000 mg PO once Route: PO; cp4 23:46 Follow up: Response: Temperature is decreased cp4 11/07 03:01 Not Given (Patient Refused): fentanyl (pf)25 mcg IVP once tt7 03:15 Drug: morphine IVP or IV 2 mg IVP once over 4 mins Route: IVP; Infused Over: 4 mins; cp4 Site: left forearm; 04:39 Follow up: Response: No adverse reaction; Pain is decreased cp4 Disposition: 03:02 Co-signature as Attending Physician, Casper Polanco DO. tt7 Disposition Summary: 11/06/24 23:41 Transfer Ordered Notes: Reason: Higher level of care tt7 Condition: Fair tt7 Problem: new tt7 Symptoms: are unchanged tt7 Transfer Location: [facility](11/06/24 23:47) tt7 Accepting Physician: (11/07/24 04:40) cp4 Diagnosis - Sepsis, unspecified organism tt7 Forms: - Medication Reconciliation Form tt7 - SBAR form tt7 Signatures: Dispatcher [employer] EDMS Barbara Buchanan RN RN Dayanara Wood cp4 Casper Polanco DO DO tt7 Corrections: (The following items were deleted from the chart) 11/06 19:30 19:29 PROBNP+C.LAB.BRZ ordered. EDMS EDMS 19:30 19:29 BLOOD CULTURE*+BA.LAB.BRZ ordered. EDMS EDMS 19:30 19:29 CBC+H.LAB.BRZ ordered. EDMS EDMS 19:30 19:29 COMPREHENSIVE METABOLIC PANEL+C.LAB.BRZ ordered. EDMS EDMS 19:30 19:29 LACTATE+C.LAB.BRZ ordered. EDMS EDMS 19:30 19:29 PROTIME (+INR)+COAG.LAB.BRZ ordered. EDMS EDMS 19:30 19:29 PTT, ACTIVATED+COAG.LAB.BRZ ordered. EDMS EDMS 19:30 19:29 AMMONIA+C.LAB.BRZ ordered. EDMS EDMS 19:30 19:29 UA Rfx Tony Cult if indicated+U.LAB.BRZ ordered. EDMS EDMS 19:39 19:24 Home Meds: omeprazole 40 mg Oral cpDR 1 cap once daily; vc1 vc1 23:47 23:41 Dr. terry tt 23:47 23:41 [facility] tt7 tt7 11/07 02:32 02:22 . tt7 tt7 02:57 02:34 ED course: 69-year-old female with weakness and fever after urologic procedure tt7 about a week ago, patient mildly hypotensive which may be patient's baseline due to cirrhosis, otherwise stable vital signs, clinically she appears somnolent and weak, standard sepsis workup initiated along with ammonia level and CT imaging of the abdomen/pelvis to assess for evidence of ureteral/renal infection given the recent urologic procedure. 7 03:00 02:42 ED course: I spoke with urology Chief resident on-call for Dr. Dejesus who will tt7 consult on the case. I spoke with hospitalist Dr. Richmond at [facility] who accepts patient for IMU admission. 7 04:40 10 23:47 Dr. terry cp4
--- NOTE | 2024-11-06 23:42 | ER ---
Nurse's Notes [facility] Name: Sindi Corey Age: 69 yrs Sex: Female : 1955 Arrival Date: 11/06/2024 Time: 19:06 Bed 17 Private MD: Diagnosis: Sepsis, unspecified organism Presentation: 11/06 19:07 Chief complaint: EMS states: Family called saying she started having blood in urine vc1 either yesterday or the day before and now today she is not following commands or answering like normal. 19:07 Coronavirus screen: Client denies travel out of the [place] in the last 14 days. fatigue, vc1 At this time, the client does not indicate any symptoms associated with coronavirus-19. Ebola Screen: Patient negative for fever greater than or equal to 101.5 degrees Fahrenheit, and additional compatible Ebola Virus Disease symptoms Patient denies exposure to infectious person. Patient denies travel to an Ebola-affected area in the 21 days before illness onset. No symptoms or risks identified at this time. Initial Sepsis Screen: Does the patient meet any 2 criteria? RR > 20 per min. Altered Mental Status. HR > 90 bpm. Yes Does the patient have a suspected source of infection? No. Patient's initial sepsis screen is negative. Risk Assessment: Do you want to hurt yourself or someone else? Unable to obtain. Onset of symptoms was November 04, 2024. 19:07 Method Of Arrival: EMS: Oral EMS vc1 19:07 Acuity: ALONDRA 3 vc1 19:07 Care prior to arrival: IV initiated. 22 GA, in the left forearm, Glucose check: 426. vc1 Triage Assessment: 19:07 General: Appears in no apparent distress. well groomed, Behavior is flat. Pain: Unable vc1 to use pain scale. Does not appear to understand pain scale. EENT: No deficits noted. No signs and/or symptoms were reported regarding the EENT system. Neuro: Level of Consciousness is awake, alert, obeys commands, Oriented to person, place, time, situation, Appropriate for age. Cardiovascular: Capillary refill < 3 seconds Patient's skin is warm and dry. Rhythm is sinus tachycardia. Respiratory: Airway is patent Respiratory effort is even, unlabored, Respiratory pattern is symmetrical, tachypnea. GI: Parent/caregiver reports the patient having nausea. : Parent/caregiver report the patient having blood in urine. Derm: Skin is thin, Skin is dry, Skin is normal, Skin temperature is hot. Musculoskeletal: No signs and/or symptoms reported regarding the musculoskeletal system. Historical: - Allergies: 19:24 Hydrocodone-Acetaminophen; vc1 - Home Meds: 19:24 Lactulose Oral 15 mL [Active]; Xifaxan 550 mg oral tablet 2 times per day [Active]; vc1 omeprazole 40 mg Oral capsule,delayed release (e.c.) daily [Active]; sucralfate 1 gram Oral tablet daily [Active]; monjaro 10 mg/0.5 ml [Active]; treseba 40 units am/40 units pm [Active]; metoprolol succinate 25 mg oral Tablet, Extended Release 24 hr [Active]; losartan 50 mg oral tablet daily [Active]; atorvastatin 10 mg oral tablet every day at bedtime [Active]; spironolactone 100 mg Oral tablet twice a day [Active]; bumetanide 1 mg Oral tablet 2 times per day [Active]; calcitriol 0.5 mcg oral capsule daily [Active]; fluoxetine 10 mg Oral tablet [Active]; solifenacin 10 mg oral tablet daily [Active]; tamsulosin 0.4 mg oral capsule with dinner [Active]; tramadol 50 mg Oral tablet as needed [Active]; - PMHx: 19:24 Cirrhosis; Diabetes - IDDM; Hypertension; vc1 - PSHx: 19:24 Cholecystectomy; vc1 - Immunization history:: Adult Immunizations up to date. - Infectious Disease History:: Denies. - Social history:: Smoking status: Patient denies any tobacco usage or history of. Screenin:07 Abuse screen: Denies threats or abuse. Nutritional screening: No deficits noted. vc1 Tuberculosis screening: No symptoms or risk factors identified. 21:00 [facility] ED Fall Risk Assessment (Adult) History of falling in the last 3 months, cp4 including since admission No falls in past 3 months (0 pts) Confusion or Disorientation No (0 pts) Intoxicated or Sedated No (0 pts) Impaired Gait No (0 pts) Mobility Assist Device Used No (0 pt) Altered Elimination No (0 pt) Score/Fall Risk Level 0 - 2 = Low Risk Oriented to surroundings, Maintained a safe environment, Assessed \T\ reinforced patient's understanding of fall precautions, Hourly rounding (assess needs \T\ fall precautionary measures) done. Assessment: 21:00 General: Appears in no apparent distress. uncomfortable, Behavior is calm, cooperative, cp4 appropriate for age. Pain: Denies pain. Neuro: Level of Consciousness is awake, alert, obeys commands, Oriented to person, situation. Cardiovascular: Patient's skin is warm and dry. Respiratory: Airway is patent Trachea midline Respiratory effort is even, unlabored. GI: No signs and/or symptoms were reported involving the gastrointestinal system. : No signs and/or symptoms were reported regarding the genitourinary system. EENT: No signs and/or symptoms were reported regarding the EENT system. Derm: No signs and/or symptoms reported regarding the dermatologic system. Musculoskeletal: No signs and/or symptoms reported regarding the musculoskeletal system. 22:00 Reassessment: Patient appears in no apparent distress at this time. Patient and/or cp4 family updated on plan of care and expected duration. Pain level reassessed. Patient is alert, oriented x 3, equal unlabored respirations, skin warm/dry/pink. 23:00 Reassessment: Patient appears in no apparent distress at this time. Patient and/or cp4 family updated on plan of care and expected duration. Pain level reassessed. Patient is alert, oriented x 3, equal unlabored respirations, skin warm/dry/pink. 11/07 00:00 Reassessment: Patient appears in no apparent distress at this time. Patient and/or cp4 family updated on plan of care and expected duration. Pain level reassessed. Patient is alert, oriented x 3, equal unlabored respirations, skin warm/dry/pink. 01:00 Reassessment: Patient appears in no apparent distress at this time. Patient and/or cp4 family updated on plan of care and expected duration. Pain level reassessed. Patient is alert, oriented x 3, equal unlabored respirations, skin warm/dry/pink. 02:00 Reassessment: Patient appears in no apparent distress at this time. Patient and/or cp4 family updated on plan of care and expected duration. Pain level reassessed. Patient is alert, oriented x 3, equal unlabored respirations, skin warm/dry/pink. 03:00 Reassessment: Patient appears in no apparent distress at this time. Patient and/or cp4 family updated on plan of care and expected duration. Pain level reassessed. Patient is alert, oriented x 3, equal unlabored respirations, skin warm/dry/pink. Vital Signs: 11/06 19:07 BP 165 / 58; Pulse 108; Resp 32; Temp 100.8; Pulse Ox 95% ; Weight 68.04 kg; Height 5 vc1 ft. 2 in. ; 20:12 BP 152 / 67; Pulse 101; Resp 18; Pulse Ox 96% ; cp4 21:16 BP 96 / 41; Pulse 75; Resp 20; Pulse Ox 96% ; cp4 22:21 BP 97 / 52; Pulse 82; Resp 22; Pulse Ox 97% ; cp4 23:45 BP 102 / 46; Pulse 78; Resp 22; Pulse Ox 96% ; cp4 23:48 Temp 98.9; cp4 11/07 00:31 BP 105 / 50; Pulse 79; Resp 22; Pulse Ox 97% ; cp4 01:30 BP 114 / 51; Pulse 86; Resp 18; Pulse Ox 96% ; cp4 02:30 BP 119 / 51; Pulse 84; Resp 18; Pulse Ox 97% ; cp4 03:30 BP 129 / 61; Pulse 87; Resp 18; Pulse Ox 97% ; cp4 11/06 19:07 Body Mass Index 27.44 (68.04 kg, 157.48 cm) vc1 ED Course: 11/06 19:07 Patient arrived in ED. rv1 19:07 Arm band placed on right wrist. vc1 19:07 Patient has correct armband on for positive identification. Bed in low position. Call vc1 light in reach. Side rails up X2. Pulse ox on. NIBP on. 19:17 Casper Polanco DO is Attending Physician. tt7 19:19 Dayanara Kumar is Primary Nurse. cp4 19:20 Maintain EMS IV. Dressing intact. Site clean \T\ dry. Gauge \T\ site: 22 Forearm. Flushed ts 3 with 10 mL NS Left . 19:23 Triage completed. vc1 19:25 First set of blood cultures drawn by me. ts3 19:40 Second set of blood cultures drawn by me. ts3 19:47 Initial lab(s) drawn, by organic lab worker, sent to lab. Inserted saline lock: 22 gauge in right ts3 hand, using aseptic technique. Blood collected. Flushed with 10 mL NS. 19:57 Chest Single View XRAY In Process Unspecified. EDMS 20:13 Urine collected: straight cath specimen, sent to lab. ts3 21:00 No provider procedures requiring assistance completed. Straight cath inserted, using cp4 sterile technique, 16 Fr. Specimen obtained. Patient tolerated well. 22:46 CT Abd/Pelvis - IV Contrast Only In Process Unspecified. EDMS 11/07 03:00 Provided Education on: transfer. cp4 03:00 Patient transferred, IV remains in place. cp4 Administered Medications: 11/06 20:08 Drug: NS 0.9% IV 500 ml IV at bolus once; to be given as a bolus over 30 minutes Route: cp4 IV; Rate: bolus; Site: right hand; 20:52 Follow up: IV Status: Completed infusion cp4 20:08 Drug: Piperacillin-Tazobactam IVPB 4.5 grams IVPB once over 60 mins; (mix in 100 mL NS) cp4 Route: IVPB; Infused Over: 60 mins; Site: right hand; 20:52 Follow up: Response: No adverse reaction; IV Status: Completed infusion cp4 20:09 Drug: Acetaminophen PO 1000 mg PO once Route: PO; cp4 23:46 Follow up: Response: Temperature is decreased cp4 11/07 03:01 Not Given (Patient Refused): fentanyl (pf)25 mcg IVP once tt7 03:15 Drug: morphine IVP or IV 2 mg IVP once over 4 mins Route: IVP; Infused Over: 4 mins; cp4 Site: left forearm; 04:39 Follow up: Response: No adverse reaction; Pain is decreased cp4 Medication: 11/06 19:42 VIS not applicable for this client. vc1 Outcome: 23:41 ER care complete, transfer ordered by . tt7 11/07 03:00 Transferred by ground EMS to [facility], Transfer form completed. X-rays cp4 sent w/ patient. Condition: stable Instructed on the need for transfer, 04:40 Patient left the ED. cp4 Addendum: 11/11/2024 08:45 Addendum: Culture Results: Positive urine culture. Positive blood culture. faxed b d culture report to [facility] alice de [facility]es[facility] rm [id number]. Signatures: Dispatcher [employer] EDMS Urvashi, Marii bd Calcote, Barbara, RN RN vc1 Ginger Hinojosa rv1 Dayanara Kumar cp4 Elsa Oliveira ts3 Casper Polanco DO DO tt7 Corrections: (The following items were deleted from the chart) 11/06 19:39 19:24 Home Meds: omeprazole 40 mg Oral cpDR 1 cap once daily; vc1 vc1 19:50 19:20 Maintain EMS IV. Dressing intact. Site clean \T\ dry. Gauge \T\ site: 22 Forearm. ts 3 Flushed with 10 mL NS ts3
--- NOTE | 2024-11-07 00:44 | RAD REPORT ---
EXAM: CT Abdomen and Pelvis With Intravenous Contrast CLINICAL HISTORY: The patient is 69 years old and is Female; HEMATURIA TECHNIQUE: Axial computed tomography images of the abdomen and pelvis with intravenous contrast. Sagittal an d coronal reformatted images were created and reviewed. This CT exam was performed using one or more of the following dose reduction techniques: automated exposure control, adjustment of the mA a nd/or kV according to patient size, and/or use of iterative reconstruction technique. COMPARISON: Comparison to prior report of October 18, 2024, images were not available for review. FINDINGS: LUNG BASES: Minimal dependent densities in the lung bases are present. No consolidation. ABDOMEN: LIVER: The liver is cirrhotic with extensive nodular contour. GALLBLADDER AND BILE DUCTS: No calcified stones. No ductal dilation. PANCREAS: No ductal dilation. No mass. SPLEEN: The spleen is enlarged and homogeneous. ADRENALS: Unremarkable. No mass. KIDNEYS AND URETERS: Right double-J ureteral stent is in place. The superior aspect of the stent is located within the proximal right ureter. Right hydronephrosis with air in the proximal right renal collecting system is noted. Delayed enhancement of the right kidney with perinephric fluid and stranding is noted along with enhancement of the the proximal urothelium. The remainder of the left ureter is normal in appearance. The left kidney enhances normally and is without hydronephrosis or hy droureter. STOMACH AND BOWEL: The stomach is decompressed. The small bowel is normal in caliber. Stool is pr esent throughout the colon. There is no mucosal thickening or evidence of obstruction. Scattered colonic diverticula are noted without surrounding inflammation. PELVIS: APPENDIX: The appendix is normal in caliber without surrounding inflammation. BLADDER: The bladder is moderately distended. REPRODUCTIVE: Unremarkable as visualized. ABDOMEN and PELVIS: INTRAPERITONEAL SPACE: Trace amount of ascites is evident within the right upper quadrant. No f ree air. BONES/JOINTS: Postsurgical change of the proximal right femur is present. The hardware is engaged . The bones are osteopenic. Multilevel degenerative change of the spine is noted. SOFT TISSUES: The soft tissues are normal. VASCULATURE: Recanalization of the umbilical vein is noted. Enlargement of the portal vein and splenic vein is noted. LYMPH NODES: Unremarkable. No enlarged lymph nodes. IMPRESSION: 1. Interval placement of a right double-J ureteral stent. The superior aspect of the stent is withi n the proximal right ureter. Proximal to the superior aspect of the stent, there is dilatation of the right renal collecting system with delayed enhancement of the right kidney along with extensive p erinephric fluid and stranding. Findings are concerning for obstruction possibly secondary to the location of the stent. Superimposed infection is within the differential. 2. Air is present within the right renal collecting system which is likely related to stent placeme nt. 3. Cirrhotic liver, splenomegaly, findings consistent with portal hypertension. Electronically signed by: Ifeoma Leslie MD 11/07/2024 12:09 AM CDT Due to temporary technical issues with the [employer] reporting system, reports are being maria dolores d by the in-house radiologist without review as a courtesy to ensure prompt reporting the interpreting radiologist is fully responsible for the content of the report. Transcribed Date/Time: 11/07/2024 12:44 AM
[2024-11-07] MEDS ORDERED: FENTANYL CITR 100 MCG/2 ML ONE (02:56)
[2024-11-07] MEDS ORDERED: MORPHINE 2 MG/ML SYR ONE (03:01)
[2024-11-07 05:07] VITALS: TEMP 98.9
[2024-11-07 05:12] VITALS: O2SAT 97
[2024-11-07 05:14] VITALS: BP 129/61
== END 2024-11-07 04:40 | disposition short-term general hospital (02) ==
LOC: ER 19:06
DX: R53.1 Weakness (principal); A41.9 Sepsis, unspecified organism; R50.9 Fever, unspecified; Z98.890 Other specified postprocedural states; K74.60 Unspecified cirrhosis of liver; E11.9 Type 2 diabetes mellitus without complications; I10 Essential (primary) hypertension
CPT/HCPCS: 96365; 87040 ×2; 87088; 85025; 81001; 87086; 36415; 82140; 87205 ×4; 85610; 82947; 83605 ×2; 85730; 87077 ×2; 87186 ×2; 80053; 83880; 74177; 71045; 51702; 96375; 99285; Q9967; J3010; J2270; J7040

== ENCOUNTER 2024-11-29 17:41 | Emergency (ER) | payer OTHER ==
[2024-11-29] MEDS ORDERED: NA CHLORIDE 0.9% 1,000 ML ONE (18:50)
[2024-11-29] MEDS ORDERED: ONDANSETRON 4 MG/2 ML VIAL ONE (18:50)
[2024-11-29 18:57] LABS: Absolute Lymphocytes (CBC) 0.8 K/uL (0.7-4.9); Hematocrit 34.3 % (36.0-45.0); Hemoglobin 11.7 g/dL (12.0-15.0); MCH 34.5 pg (27.0-35.0); MCHC 34.0 g/dL (32.0-36.0); MCV 101.4 fL (80-100); MPV 8.2 fL (7.6-11.3); Nucleated RBC Absolute Count 0.0 (0-0); Nucleated Red Blood Cells % 0.2 % (0-0); RBC Red Blood Cell Count 3.39 M/uL (3.86-4.86); White Blood Count 3.40 thou/uL (4.3-10.9)
[2024-11-29 19:00] LABS: Blood Morphology Comment NOT SEEN (NOT SEEN); White Blood Cell Scan OK (OK)
[2024-11-29 19:13] LABS: ALT/SGPT 41.0 U/L (13-56); AST/SGOT 39.0 U/L (15-37); Albumin 3.2 g/dL (3.4-5.0); Albumin/Globulin Ratio 0.8 (1.1-1.8); Alkaline Phosphatase 108.0 U/L (45-117); Anion Gap 10.4 mEq/L (5.0-15.0); BUN Blood Urea Nitrogen 9.0 mg/dL (7-18); Globulin 4.2 g/dL (2.3-3.5); Lipase 26.0 U/L (13-75); Magnesium 1.5 mg/dL (1.6-2.4); Potassium 3.4 mEq/L (3.5-5.1)
[2024-11-29 19:18] LABS: Glucose Level 425.0 mg/dL (74-106)
[2024-11-29 19:40] LABS: Sqamous Epithelial None Seen /HPF (None Seen); Urine Crystals Unidentified Few /HPF (None Seen); Urine Culture Reflex Order REFLEXED; Urine Microscopic Reflex YN ORDER UMIC; Urine WBC Clump Few /HPF (None Seen); Urine Yeast (Budding) Moderate /HPF (None Seen)
[2024-11-29] MEDS ORDERED: INSULIN REGULAR (HUMAN) 100 UNIT/ML ONE (19:46)
[2024-11-29] MEDS ORDERED: CEFTRIAXONE 1000 MG/VIAL ONE (19:47)
--- NOTE | 2024-11-29 19:58 | EDPHYS ---
Physician Documentation [facility] Name: Sindi Corey Age: 69 yrs Sex: Female : 1955 Arrival Date: 11/29/2024 Time: 17:41 Bed 19 Private MD: ED Physician Adan Dailey HPI: 11/29 18:36 This 69 yrs old Female presents to ER via Wheelchair with complaints of High dr5 Blood Sugar, Fatigue. 18:36 Patient is a 69-year-old female with history of cirrhosis of the liver as well as dr5 hypertension and diabetes coming in with elevated blood sugar and fatigue this been going on since yesterday. Family at bedside is concerned that her blood sugar is too high. Patient reports she has appointment on Monday with primary care doctor for further management. Patient denies fever, chest pain, abdominal pain, nausea, vomiting, diarrhea. Historical: - Allergies: 17:53 Hydrocodone-Acetaminophen; me1 17:54 Fentanyl; me1 - PMHx: 17:53 Cirrhosis; Diabetes - IDDM; Hypertension; me1 - PSHx: 17:53 Cholecystectomy; surgery to repair right femur (Unknown); me1 - Immunization history:: Adult Immunizations up to date. - Infectious Disease History:: Denies. - Social history:: Smoking status: Patient denies any tobacco usage or history of. ROS: 18:36 Constitutional: as per hpi dr5 Exam: 18:36 Constitutional: This is a well developed, well nourished patient who is awake, alert, dr5 and in no acute distress. Head/Face: Normocephalic, atraumatic. Eyes: Pupils equal round and reactive to light, extra-ocular motions intact. Lids and lashes normal. Conjunctiva and sclera are non-icteric and not injected. Cornea within normal limits. Periorbital areas with no swelling, redness, or edema. Neck: Trachea midline, no thyromegaly or masses palpated, and no cervical lymphadenopathy. Supple, full range of motion without nuchal rigidity, or vertebral point tenderness. No Meningismus. Chest/axilla: Normal chest wall appearance and motion. Nontender with no deformity. No lesions are appreciated. Cardiovascular: Regular rate and rhythm with a normal S1 and S2. Normal PMI, no JVD. No pulse deficits. Respiratory: Lungs have equal breath sounds bilaterally, clear to auscultation. No rales, rhonchi or wheezes noted. No increased work of breathing, no retractions or nasal flaring. Back: No spinal tenderness. No costovertebral tenderness. Full range of motion. Skin: Warm, dry with normal turgor. Normal color with no rashes, no lesions, and no evidence of cellulitis. MS/ Extremity: Pulses equal, no cyanosis. Neurovascular intact. Full, normal range of motion. Neuro: Awake and alert, GCS 15, oriented to person, place, time, and situation. Cranial nerves II-XII grossly intact. Motor strength 5/5 in all extremities. Sensory grossly intact. Cerebellar exam normal. Normal gait. Vital Signs: 17:47 BP 130 / 61; Pulse 77; Resp 16; Temp 98.6; Pulse Ox 98% ; Weight 69.85 kg; Height 5 ft. me1 3 in. ; Pain 0/10; 18:50 BP 132 / 53; Pulse 72; Resp 18; Pulse Ox 100% on R/A; kj2 19:15 BP 139 / 46; Pulse 71; Resp 16; Pulse Ox 97% on R/A; ss12 20:00 BP 116 / 53; Pulse 72; Resp 16; Pulse Ox 96% on R/A; ss12 17:47 Body Mass Index 27.28 (69.85 kg, 160.02 cm) me1 17:47 Pain Scale: Adult me1 Procedures: 18:50 Peripheral line: by aseptic technique a peripheral line was placed in the right dr5 antecubital vein, 20g Right AC. Good Blood return. Flushes with no signs of infiltration.. MDM: 17:43 Medical Screening Exam initiated dr5 19:49 Differential diagnosis: DKA, hyperglycemia, UTI. Data reviewed: vital signs, nurses dr5 notes, lab test result(s), amylase and lipase, CBC, white blood cell count, hemoglobin, hematocrit, platelets, electrolytes, sodium, potassium, chloride, serum bicarbonate, BUN, creatinine, serum glucose. Consideration of Admission/Observation Escalation of care including admission/observation considered. Escalation considered if patient found to be in DKA. I considered the following discharge prescriptions or medication management in the emergency department I discussed and recommended Over The Counter medications, Medications were administered in the Emergency Department. See MAR. Historians other than the Patient: Daughter/Son: Daughter. Care significantly affected by the following chronic conditions: Diabetes, Liver Disease. Care significantly affected by the following Social Determinants of Health: Poor access to healthcare and/or lack of insurance, Poor access to transportation, Problems related to employment. Counseling: I had a detailed discussion with the patient and/or guardian regarding the historical points, exam findings, and any diagnostic results supporting the discharge/admit diagnosis, the presence of at least one elevated blood pressure reading (>120/80) during this emergency department visit, lab results, the need for outpatient follow up, for definitive care, a family practitioner. Medication response: Rocephin. Response to treatment: the patient's symptoms have markedly improved after treatment. Special discussion: I discussed with the patient/guardian in detail that at this point there is no indication for admission to the hospital. It is understood, however, that if the symptoms persist or worsen the patient needs to return immediately for re-evaluation. Based on the history and exam findings, there is no indication for further emergent testing or inpatient evaluation. I discussed with the patient/guardian the need to see the primary care provider for further evaluation of the symptoms. ED course: Rocephin given IV. Normal saline given which reduced blood sugar. Will place patient on antibiotics and have her follow-up in primary care doctor on Monday. All question answered. Strict ER precaution.. 11/29 17:44 Order name: CBC with Diff; Complete Time: 19:12 dr5 11/29 17:44 Order name: CMP; Complete Time: 19:34 dr5 11/29 17:44 Order name: Lipase; Complete Time: 19:34 dr5 11/29 17:44 Order name: UA Rfx Tony Cult if indicated; Complete Time: 19:47 dr5 11/29 17:44 Order name: Magnesium; Complete Time: 19:34 dr5 11/29 17:44 Order name: Phosphorus; Complete Time: 19:34 dr5 11/29 18:03 Order name: Glucose, Ancillary Testing; Complete Time: 18:10 EDDE 11/29 19:00 Order name: CBC Smear Scan; Complete Time: 19:12 EDDE 11/29 19:48 Order name: Urine Culture EDDE 11/29 17:44 Order name: IV Saline Lock; Complete Time: 18:51 dr5 11/29 17:44 Order name: Labs collected and sent; Complete Time: 18:51 dr5 Administered Medications: 18:58 Drug: Ondansetron IVP 4 mg IVP once; over 2 minutes Route: IVP; Site: right antecubital;kj2 20:00 Follow up: Response: No adverse reaction [facility] 18:58 Drug: NS 0.9% IV 1000 ml IV at 1 bolus Per protocol; to be given as a bolus over 60 kj2 minutes Route: IV; Rate: 1 bolus; Site: right antecubital; 20:00 Follow up: IV Status: Completed infusion; IV Intake: 1000ml [facility] 19:52 Drug: Insulin Regular Human Sub-Q 10 units Sub-Q once {Co-Signature: ha1 (Sweetie Burger ss12 RN).} Route: Sub-Q; Site: right upper arm; 20:00 Follow up: Response: No adverse reaction [facility] 19:54 Drug: Rocephin IV 1 grams IV at per protocol once; Given slow IV push per pharmacy 12 instructions Route: IV; Rate: per protocol; Site: right antecubital; Disposition Summary: 11/29/24 19:57 Discharge Ordered Notes: Location: Home dr5 Condition: Stable dr5 Diagnosis - Hyperglycemia, unspecified dr5 - UTI/ Urinary tract infection, site not specified dr5 Followup: dr5 - With: Emergency Department - When: As needed - Reason: Worsening of condition Followup: dr5 - With: Private Physician - When: 1 - 2 days - Reason: Recheck today's complaints, Continuance of care, Re-evaluation by your physician Discharge Instructions: - Discharge Summary Sheet dr5 - Hyperglycemia dr5 - Urinary Tract Infection, Adult dr5 - Blood Glucose Monitoring, Adult dr5 Forms: - Medication Reconciliation Form dr5 - Antibiotic Education dr5 - Patient Portal Instructions dr5 - Leadership Thank You Letter dr5 Prescriptions: - Cephalexin 500 mg Oral Capsule - take 1 capsule ORAL route every 12 hours for 10 days; 20 capsule; Refills: 0, dr5 Product Selection Permitted Signatures: Dispatcher [employer] Chelita Logan RN RN me1 Nicole Coleman RN RN kj2 Parth Parsons, MALGORZATA-C WARP DOFFER-Cdr5 Sonali Lyon RN RN ss12 Sweetie Burger RN ha1
--- NOTE | 2024-11-29 19:58 | ER ---
Nurse's Notes [facility] Name: Sindi Corey Age: 69 yrs Sex: Female : 1955 Arrival Date: 11/29/2024 Time: 17:41 Bed 19 Private MD: Diagnosis: Hyperglycemia, unspecified;UTI/ Urinary tract infection, site not specified Presentation: 11/29 17:47 Chief complaint: Patient's son or daughter states: Blood sugar has been elevated last me1 night and today. Went to urgent care and was sent to ER. BGL in urgent care 414. BGL in triage is 408. Patient's only complaint is feeling tired. Coronavirus screen: At this time, the client does not indicate any symptoms associated with coronavirus-19. Ebola Screen: No symptoms or risks identified at this time. Initial Sepsis Screen: Does the patient meet any 2 criteria? No. Patient's initial sepsis screen is negative. Does the patient have a suspected source of infection? No. Patient's initial sepsis screen is negative. Risk Assessment: Do you want to hurt yourself or someone else? Patient reports no desire to harm self or others. Onset of symptoms was November 28, 2024 at 17:00. 17:47 Method Of Arrival: Wheelchair me1 17:47 Acuity: ALONDRA 3 me1 Historical: - Allergies: 17:53 Hydrocodone-Acetaminophen; me1 17:54 Fentanyl; me1 - PMHx: 17:53 Cirrhosis; Diabetes - IDDM; Hypertension; me1 - PSHx: 17:53 Cholecystectomy; surgery to repair right femur (Unknown); me1 - Immunization history:: Adult Immunizations up to date. - Infectious Disease History:: Denies. - Social history:: Smoking status: Patient denies any tobacco usage or history of. Screenin:45 [facility] ED Fall Risk Assessment (Adult) History of falling in the last 3 months, kj2 including since admission No falls in past 3 months (0 pts) Confusion or Disorientation No (0 pts) Intoxicated or Sedated No (0 pts) Impaired Gait No (0 pts) Mobility Assist Device Used No (0 pt) Altered Elimination No (0 pt) Score/Fall Risk Level 0 - 2 = Low Risk Maintained a safe environment, Hourly rounding (assess needs \T\ fall precautionary measures) done. Abuse screen: Denies threats or abuse. Denies injuries from another. Nutritional screening: No deficits noted. Tuberculosis screening: No symptoms or risk factors identified. Assessment: 18:45 General: Appears in no apparent distress. Behavior is cooperative. Pain: Denies pain. kj2 Neuro: Level of Consciousness is awake, alert, obeys commands, Oriented to person, place, time, situation. Cardiovascular: Patient's skin is warm and dry. Respiratory: Airway is patent Respiratory effort is unlabored. GI: No signs and/or symptoms were reported involving the gastrointestinal system. : No signs and/or symptoms were reported regarding the genitourinary system. 19:00 Reassessment: Patient appears in no apparent distress at this time. Patient and/or ss12 family updated on plan of care and expected duration. Pain level reassessed. Patient is alert, oriented x 3, equal unlabored respirations, skin warm/dry/pink. 20:24 General: Appears in no apparent distress. comfortable, Behavior is calm, cooperative, ss12 quiet. Pain: Denies pain. Neuro: Level of Consciousness is awake, alert, obeys commands, Oriented to person, place, time, situation. Cardiovascular: Capillary refill < 3 seconds Patient's skin is warm and dry. Respiratory: Airway Respiratory effort is even, unlabored, Respiratory pattern is regular, symmetrical. GI: No deficits noted. No signs and/or symptoms were reported involving the gastrointestinal system. : No deficits noted. No signs and/or symptoms were reported regarding the genitourinary system. EENT: No deficits noted. No signs and/or symptoms were reported regarding the EENT system. Derm: Skin is intact, Skin is dry, Skin is pink, warm \T\ dry. normal. Musculoskeletal: No deficits noted. No signs and/or symptoms reported regarding the musculoskeletal system. Vital Signs: 17:47 BP 130 / 61; Pulse 77; Resp 16; Temp 98.6; Pulse Ox 98% ; Weight 69.85 kg; Height 5 ft. me1 3 in. ; Pain 0/10; 18:50 BP 132 / 53; Pulse 72; Resp 18; Pulse Ox 100% on R/A; kj2 19:15 BP 139 / 46; Pulse 71; Resp 16; Pulse Ox 97% on R/A; ss12 20:00 BP 116 / 53; Pulse 72; Resp 16; Pulse Ox 96% on R/A; ss12 17:47 Body Mass Index 27.28 (69.85 kg, 160.02 cm) me1 17:47 Pain Scale: Adult me1 ED Course: 17:42 Patient arrived in ED. im 17:43 Parth Parsons, [employer] [facility]. [facility]5 17:43 Adan Dailey MD is Attending Physician. dr5 17:53 Triage completed. me1 17:54 Arm band placed on Patient placed in waiting room. me1 18:43 Nicole Coleman, RN is Primary Nurse. kj2 18:51 Phosphorus Sent. dr5 18:51 Magnesium Sent. dr5 18:51 CBC with Diff Sent. dr5 18:51 CMP Sent. dr5 18:51 Lipase Sent. dr5 19:10 Patient has correct armband on for positive identification. Bed in low position. Call kj2 light in reach. Adult w/ patient. Provided Education on: call light. 20:27 No provider procedures requiring assistance completed. ss12 20:28 IV discontinued, intact, bleeding controlled, No redness/swelling at site. Pressure ss12 dressing applied. Administered Medications: 18:58 Drug: Ondansetron IVP 4 mg IVP once; over 2 minutes Route: IVP; Site: right antecubital;kj2 20:00 Follow up: Response: No adverse reaction ss12 18:58 Drug: NS 0.9% IV 1000 ml IV at 1 bolus Per protocol; to be given as a bolus over 60 kj2 minutes Route: IV; Rate: 1 bolus; Site: right antecubital; 20:00 Follow up: IV Status: Completed infusion; IV Intake: 1000ml ss12 19:52 Drug: Insulin Regular Human Sub-Q 10 units Sub-Q once {Co-Signature: ha1 (Sweetie Burger 12 RN).} Route: Sub-Q; Site: right upper arm; 20:00 Follow up: Response: No adverse reaction ss12 19:54 Drug: Rocephin IV 1 grams IV at per protocol once; Given slow IV push per pharmacy ss12 instructions Route: IV; Rate: per protocol; Site: right antecubital; Medication: 20:28 VIS not applicable for this client. ss12 Intake: 20:00 IV: 1000ml; Total: 1000ml. ss12 Outcome: 19:57 Discharge ordered by . dr5 20:28 Discharged to home via wheelchair, ss12 20:28 Condition: stable 20:28 Discharge instructions given to patient, family, Instructed on discharge instructions, follow up and referral plans. Demonstrated understanding of instructions, follow-up care, medications, Prescriptions given X 1, 20:28 Patient left the ED. ss12 Signatures: Carolina Jordan Michelle RN RN me1 Nicole Coleman RN RN kj2 Parth Parsons, [employer]-Cdr5 Sonali Lyon RN RN 12 Sweetie Burger RN ha1 Corrections: (The following items were deleted from the chart) 20:25 20:00 Reassessment: Patient appears in no apparent distress at this time. Patient ss12 and/or family updated on plan of care and expected duration. Pain level reassessed. Patient is alert, oriented x 3, equal unlabored respirations, skin warm/dry/pink. ss12
[2024-11-30 03:50] VITALS: TEMP 98.6
[2024-11-30 03:57] VITALS: BP 116/53; O2SAT 96
== END 2024-11-29 20:28 | disposition home or self-care (01) ==
LOC: ER 17:41
DX: E11.65 Type 2 diabetes mellitus with hyperglycemia (principal); N39.0 Urinary tract infection, site not specified
CPT/HCPCS: 96361; 87088; 85025; 81001; 87086; 36415; 83735; 84100; 82947 ×2; 87077; 87186; 83690; 80053; 96375; 96372; 96374; 99284; J2405; J1815; J7030; J0696